=== PATIENT | female | born 1960 | race Caucasian/White ===

== ENCOUNTER → 2021-09-12 14:11 | Outpatient (CLI) | payer MEDICARE, OTHER, SELFPAY ==
--- NOTE | 2021-09-12 14:11 | MM_ITS ---
PROCEDURE INFORMATION: Exam: Bilateral Diagnostic Breast Tomosynthesis Exam date and time: 09/12/2021 2:11 PM Age: 61 years old Clinical indication: Patient complaining of a right breast lump TECHNIQUE: Imaging protocol: Bilateral Diagnostic tomosynthesis and 2D mammography including computer-aided detection (CAD) when performed. Unilateral or bilateral exam. COMPARISON: No relevant prior studies available. FINDINGS: MAMMOGRAPHY: The breast tissue is composed of scattered areas of fibroglandular density. A skin marker was placed over the palpable abnormality in the posterior right upper inner quadrant. The spot compression views demonstrate stromal structures and several rounded lucencies best seen on tomographic craniocaudal images measuring up to 1.6 cm, highly suggestive of benign fat necrosis. The spot compression views also included an ovoid mass in the posterior third of the right upper inner quadrant measuring 0.7 cm in greatest dimension, likely reflecting a benign lymph node. There is no stellate mass, suspicious architectural distortion or suspicious microcalcifications in either breast to suggest malignancy. No skin thickening or axillary adenopathy. IMPRESSION: Patient to return for right breast ultrasound for full evaluation of the patient's complaint of a palpable abnormality likely reflecting benign fat necrosis. Sonographic imaging of the posterior right upper inner quadrant is also recommended to further assess a probably benign 0.7 cm ovoid mass unrelated to the palpable abnormality. ASSESSMENT: BI-RADS Category 0: Incomplete- Need Additional Imaging Evaluation and/or Prior Mammograms for Comparison
--- NOTE | 2021-09-12 14:11 | US_ITS ---
PROCEDURE INFORMATION: Exam: US Right Breast, Complete Exam date and time: 09/12/2021 2:11 PM Age: 61 years old Clinical indication: Palpable abnormality in the right breast TECHNIQUE: Imaging protocol: Complete ultrasound of all four quadrants of the Right breast and the retroareolar regions, including ultrasound of the axilla when performed. COMPARISON: MG MM DIG MAMM BI DX W/CAD 09/12/2021 2:36 PM FINDINGS: Breast: Sonographic images of the right breast including the retroareolar region, all 4 quadrants and the axilla do not demonstrate any solid or cystic masses. No architectural distortion or acoustical shadowing. Cursors were placed over normal fibrofatty tissue structures in the 12 o'clock axis. No skin thickening or axillary adenopathy. IMPRESSION: Palpable abnormality in the right breast corresponds to predominantly lucent breast tissue on mammography, highly suggestive of benign posttraumatic fat necrosis. A precautionary six-month follow-up diagnostic right mammogram is recommended unless otherwise clinically indicated. ASSESSMENT: BI-RADS Category 3: Probably benign
== END ==
PROVIDERS: PCP Family Medicine; Visit Provider Family Medicine
DX: N64.9 Disorder of breast, unspecified (principal)
CPT/HCPCS: 76641; 77062; 77066; G0279

== ENCOUNTER 2024-04-23 09:59 | Outpatient (CLI) | payer MEDICARE, OTHER, SELFPAY ==
--- NOTE | 2024-04-23 09:59 | MM_ITS ---
PROCEDURE INFORMATION: Exam: MG Bilateral Screening 3D Mammography Exam date and time: 04/23/2024 9:43 AM Age: 63 years old Clinical indication: Screening examination; Additional info: Palpable fullness. Family history of breast carcinoma. TECHNIQUE: Imaging protocol: Bilateral Screening tomosynthesis and 2D mammography including computer-aided detection (CAD) when performed. COMPARISON: 1. MG MM DIG MAMM BI DX W/CAD 09/12/2021 2:36 PM 2. US BREAST RT COMPLETE 09/12/2021 3:11 PM FINDINGS: MAMMOGRAPHY: Breast composition: There are scattered areas of fibroglandular density. Mass: Questionable 0.5 cm mass with associated 4 cm grouping of calcifications in the right upper inner quadrant, posterior depth. This is best seen on CC frame 35, MLO frame 46 . No suspicious masses in the left breast. Architectural distortion: No suspicious distortion. Calcifications: There is a 4 cm grouping of calcifications in the right upper inner quadrant, posterior depth, with associated questionable subcentimeter mass, as discussed above. Asymmetric density: None. Skin thickening: None. Axillary adenopathy: None. IMPRESSION: 1. Recommend right breast spot compression XCCM/MLO views, spot magnification XCCM view/ML view, full field true lateral view and ultrasound for further evaluation of a questionable 0.5 cm mass with associated 4 cm grouping of calcifications in the posterior right upper inner quadrant. 2. No mammographic evidence of malignancy in the left breast. 3. Given the reported risk factors for this patient, a breast cancer risk assessment may prove useful for further evaluation. ASSESSMENT: BI-RADS Category 0: Incomplete- Need Additional Imaging Evaluation and/or Prior Mammograms for Comparison.
== END 2024-04-23 23:59 | disposition home or self-care (01) ==
LOC: RAD 09:59
PROVIDERS: PCP Family Medicine; Visit Provider Family Medicine
DX: Z12.31 Encounter for screening mammogram for malignant neoplasm of breast (principal)
CPT/HCPCS: 77063; 77067

== ENCOUNTER 2025-05-11 11:11 | Outpatient (CLI) | payer MEDICARE, OTHER, SELFPAY ==
--- OUTSIDE RECORDS SUMMARY | 2025-03-22 09:59 | XMS_ITS | Encounter Summary ---
Author Organization [place] [address] Care Team Providers Care Rn Visiting Name Role Phone Christianne Bean MD, Terrell Primary Care Provider + Adam Dolan MD Unavailable Jane Kelsey Unavailable [phone] Reason for Visit * Auth/Cert/Inpt Specialty Diagnoses / Procedures Referred By Sherine t Referred To Contact Diagnoses Invasive ductal carcinoma of breast, right (HCC) Invasive ductal carcinoma of breast, right (HCC) [C50.911] Procedures WY MASTECTOMY PARTIAL WY BX/EXC LYMPH NODE OPEN DEEP AXILLARY NODE Right breast mammogram guided segmentectomy, sentinel lymph node dissection Referral ID Status Reason Start Date Expiration Date Visits Re quested Visits Authorized [id number] 1 1 Encounter Details Date Type Department Care Team (Latest Contact Info) Description 03/22/2025 9:59 AM EDT - 03/22/2025 10:14 AM EDT Hospital Encounter [facility] [place] [address] Aguila Miranda MD [address] [place] [address] [address] [place] [address] Malignant neoplasm of right breast in female, estrogen receptor positive, unspecified site of breast (HCC) Discharge Disposition: Home or Self Care Social History Tobacco Use Types Packs/Day Years Used Date Smoking Tobacco: Every Day Cigarettes Smokeless Tobacco: Never Alcohol Use Standard Drinks/Week Comments No 0 (1 standard drink = 0.6 oz pur e alcohol) Comments No Sex and Gender Information Value Date Recorded Sex Assigned at Not on file Legal Sex Female 4:40 AM EDT Gender Identity Not on file Sexual Orientation Not on file documented as of this encounter Medications at Time of Discharge anastrozole (ARIMIDEX) 1 mg Oral TabletIndications :Invasive ductal carcinoma of breast, right (HCC) TAKE ONE (1) TABLET BY MOUTH DAILY. 90 Tablet 3 02/21/2025 aspirin 81 mg Oral Tablet, Chewable Take 81 mg by mouth daily. atorvastatin (LIPITOR) 40 mg Oral Tablet Take 40 mg by mouth daily. FLUoxetine (PROZAC) 20 mg Oral Capsule Take 20 mg by mouth daily. HUMULIN 70/30 U-100 KWIKPEN 100 unit/mL (70-30) SubQ Insulin Pen Inject 10 Units under the skin 2 times daily (with meals). 02/09/2025 metFORMIN (GLUCOPHAGE) 500 mg Oral Tablet Take 500 mg by mouth 2 times daily. 12/27/2024 amLODIPine (NORVASC) 2.5 mg Oral Tablet Take 10 mg by mouth. diazepam (VALIUM) 10 mg Oral Tablet Take 10 mg by mouth every 8 hours as needed. hydroCHLOROthiazi de 25 mg Oral Tablet Take 25 mg by mouth daily. 01/12/2025 ibuprofen (ADVIL;MOTRIN) 100 mg Oral Tablet Take 100 mg by mouth every 6 hours as needed for Fever. lisinopriL (PRINIVIL;ZESTRIL ) 40 mg Oral Tablet Take 40 mg by mouth daily. metoprolol succinate (TOPROL-XL) 25 mg Oral Tablet Sustained Release 24 hr Take by mouth once. oxyCODONE-acetami nophen (PERCOCET) 5-325 mg Oral Tablet Take 1-2 Tabs by mouth every 4 hours as needed for Pain. 40 Tab 0 11/23/2014 traMADoL (ULTRAM) 50 mg Oral Tablet Take 1 Tablet by mouth every 6 hours as needed for up to 10 days. 10 Tablet 03/22/2025 1:41 PM EDT 03/22/2025 04/01/2025 documented as of this encounter Discharge Disposition Disposition Code Departure Means Destination Home or Self Care documented in this encounter Plan of Treatment Upcoming Encounters Date Type Department Care Team (Late st Contact Info) Description 05/16/2025 11:00 AM EDT Appointment [facility] [place] [address] Michael Wallace MD [address] [facility] [place] [address] 10/27/2025 12:30 PM EST Appointment [facility] [place] [address] Aguila Miranda MD [address] [facility] [address] [place] [address] 10/27/2025 1:00 PM EST Appointment [facility] [address] [place] [address] Samnatha Paredes PA-C [address] [place] [address] [place] [address] documented as of this encounter Goals Goal Patient Goal Type Associated Problems Recent Progress Patient-Stated? Author [facility] Breast [facility] On track( 025 12:16 PM EDT) No Olivia Moya, RN Note: Patient acknowledges understanding of new diagnosis, plan of care, available resources and how to contact Nurse Navigator with any future questions or concerns. Breast [facility] Breast Health On track( 025 11:12 AM EDT) No Dianna Issa, RN Note: Patient will be compliant with taking Aromatase Inhibitor daily and understands who to contact to discuss any side effects or complications. documented as of this encounter Procedures Procedure Name Priority Date/Time Associated Diagnosis Comments MM US BREAST NEEDLE LOCALIZATION RIGHT Routine 03/22/2025 11:34 AM EDT Malignant neoplasm of right breast in female, estrogen receptor positive, unspecified site of breast (HCC) documented in this encounter Results * MM US BREAST NEEDLE LOCALIZATION RIGHT (03/22/2025 11:34 AM EDT) Anatomical Region Laterality Modality Breast Right Mammography 03/22/2025 11:3 4 AM EDT Impressions 03/22/2025 12:01 PM EDT RECOMMENDATION: . . DISCLAIMER *The patient was notified by MyChart or mail of the results for this examination. *The patient's information was entered into a reminder system with a target due date for the next breast imaging, in accordance with the [employer] and the Society of Breast Imaging recommendations. *Breast Imaging has a false negative rate of 15%. *Any patient with a palpable abnormality, unexplained by breast imaging, should be managed on a clinical basis by the attending physician. Narrative 03/22/2025 12:01 PM EDT Does EXAM: MM US BREAST NEEDLE LOCALIZATION RIGHT EXAM DATE: 03/22/2025 11:34 AM COMPARISON STUDIES: Compared with prior studies the most recent being breast MRI from November,. DESCRIPTION: INDICATION- C50.911-Malignant neoplasm of unspecified site of right female breast (HCC)-ICD-10-CM Z17.0-Estrogen receptor positive status (ER+)-ICD-10-CM 64-year-old female who was diagnosed with an invasive ductal malignancy in the upper inner quadrant right breast with regional calcifications. Preoperative needle localization requested. Prior to the localization mammography was performed which demonstrates 4.5 cm of indeterminate calcifications with the biopsy clip centrally. Initially an attempt was made to bracket the calcifications by mammography, however because of the location in the upper inner right breast this was unsuccessful. The patient was then taken to the ultrasound suite and under ultrasound guidance a 7.5 cm needle was advanced into the breast traversing the clip and deployed without complication. On the final image the clip lies between the needle tip and wire. Calcifications are noted to extend both anterior and posterior to the needle shaft. Specimen radiography is recommended. PATHOLOGY RESULT: Results pending Procedure Note Mary Jo Busby MD - 03/22/2025 Does EXAM: MM US BREAST NEEDLE LOCALIZATION RIGHT EXAM DATE: 03/22/2025 11:34 AM COMPARISON STUDIES: Compared with prior studies the most recent beingbreast MRI from November,. DESCRIPTION: INDICATION- C50.911-Malignant neoplasm of unspecified site of rightfemale breast (HCC)-ICD-10-CM Z17.0-Estrogen receptor positive status (ER+)-ICD-10-CM 64-year-old female who was diagnosed with an invasive ductal malignancy inthe upper inner quadrant right breast with regional calcifications.Preoperative needle localization requested. Prior to the localization mammography was performed which demonstrates 4.5 cm of indeterminate calcifications withthe biopsy clip centrally. Initially an attempt was made to bracket the calcifications by mammography, however because of the location in theupper inner right breast this was unsuccessful. The patient was then taken to the ultrasound suite and under ultrasoundguidance a 7.5 cm needle was advanced into the breast traversing the clip anddeployed without complication. On the final image the clip lies between the needletip and wire. Calcifications are noted to extend both anterior and posteriorto the needle shaft. Specimen radiography is recommended. PATHOLOGY RESULT: Results pending IMPRESSION: RECOMMENDATION: . . DISCLAIMER *The patient was notified by MyChart or mail of the results for this examination. *The patient's information was entered into a reminder system with atarget due date for the next breast imaging, in accordance with the [employer] and the Society of Breast Imaging recommendations. *Breast Imaging has a false negative rate of 15%. *Any patient with a palpable abnormality, unexplained by breast imaging,should be managed on a clinical basis by the attending physician. us Aguila Miranda MD IM MAMMOGRAPHY ORDERABLES Final Result documented in this encounter Visit Diagnoses Diagnosis Malignant neoplasm of right breast in female, estrogen receptor positive, unspecified site of breast (HCC) documented in this encounter Care Teams Rn Visiting Relationship Specialty Start Date End Date Terrell Faust MD [address] [place] [id number] PCP - General Family Medicine 05/23/14 Adam Dolan MD [address] [place], [place] [id number] Physician Internal Medicine-Cardiovascular Disease 11/18/14 Jane Kelsey MSW Battery Hand 06/03/24 documented as of this encounter
--- OUTSIDE RECORDS SUMMARY | 2025-03-22 10:15 | XMS_ITS | Encounter Summary ---
Author Organization [place] [address] Care Team Providers Care Blackjack Dealer Name Role Phone Christianne Bean MD, Terrell Primary Care Provider + Adam Dolan MD Unavailable [phone] Jane Kelsey Unavailable [phone] Reason for Referral * Mammography (Routine) - Pending Review Specialty Diagnoses / Procedures Referred By Contac t Referred To Contact Radiology Diagnoses Malignant neoplasm of right breast in female, estrogen receptor positive, unspecified site of breast (HCC) Procedures MM POST PROCEDURE FILM DIGITAL RIGHT Aguila Miranda MD [address] [place] [address] Phone: tel: fax: Referral ID Status Reason Start Date Expiration Date V isits Requested Visits Authorized [id number] Pending Review 03/22/2025 03/22/2027 1 1 Reason for Visit * Auth/Cert/Inpt Specialty Diagnoses / Procedures Referred By Contac t Referred To Contact Diagnoses Invasive ductal carcinoma of breast, right (HCC) Invasive ductal carcinoma of breast, right (HCC) [C50.911] Procedures PA MASTECTOMY PARTIAL PA BX/EXC LYMPH NODE OPEN DEEP AXILLARY NODE Right breast mammogram guided segmentectomy, sentinel lymph node dissection Referral ID Status Reason Start Date Expiration Date Visits Re quested Visits Authorized [id number] 1 1 Encounter Details Date Type Department Care Team (Latest Contact Info) Description 03/22/2025 10:15 AM EDT - 03/22/2025 11:32 AM EDT Hospital Encounter [facility] [place] [address] Aguila Miranda MD [address] [place] [address] Malignant neoplasm of right breast in female, [...] EDT Appointment [facility] [place] [address] Michael Wallace MD [address] [place] [address] [place] [address] 10/27/2025 12:30 PM EST Appointment [facility] [address] [place] [address] Aguila Miranda MD [address] [place] [address] [place] [address] 10/27/2025 1:00 PM EST Appointment [facility] [place] [address] Samantha Paredes PA-C [address] [place] [address] [place] [address] documented as of this encounter Goals Goal Patient Goal Type Associated Problems Recent Progress Patient-Stated? Author Breast Health Breast Health On track( 025 12:16 PM EDT) No Olivia Moya RN Note: Patient acknowledges understanding of new diagnosis, plan of care, available resources and how to contact Nurse Navigator with any future questions or concerns. Breast Health Breast Health On track( 025 11:12 AM EDT) No Dianna Issa, NAM Note: Patient will be compliant with taking Aromatase Inhibitor daily and understands who to contact to discuss any side effects or complications. documented as of this encounter Procedures Procedure Name Priority Date/Time Associated Diagnosis Comments MM POST PROCEDURE FILM DIGITAL RIGHT Routine 03/22/2025 11:34 AM EDT Malignant neoplasm of right breast in female, estrogen receptor positive, unspecified site of breast (HCC) documented in this encounter Results * MM POST PROCEDURE FILM DIGITAL RIGHT (03/22/2025 11:34 AM EDT) Anatomical Region Laterality Modality Breast Right Mammography 03/22/2025 11:3 4 AM EDT Impressions 03/22/2025 12:27 PM EDT Post-Procedure Mammogram for Marker Placement RECOMMENDATION: No additional recommendation DISCLAIMER *The patient was notified by MyChart or mail of the results for this examination. *The patient's information was entered into a reminder system with a target due date for the next breast imaging, in accordance with the [employer] and the Society of Breast Imaging recommendations. *Breast Imaging has a false negative rate of 15%. *Any patient with a palpable abnormality, unexplained by breast imaging, should be managed on a clinical basis by the attending physician. Narrative 03/22/2025 12:27 PM EDT EXAM: MM POST PROCEDURE FILM DIGITAL RIGHT EXAM DATE: 03/22/2025 11:34 AM TISSUE DENSITY: There are scattered areas of fibroglandular density. FINDINGS: A single cc view obtained following needle placement demonstrates the clip lying between the needle tip and wire. Indeterminate calcifications can be seen extending anterior to the shaft by 12 mm and posterior to the needle shaft by 15 mm. Specimen radiography is recommended. Procedure Note Mary Jo Busby MD - 03/22/2025 EXAM: MM POST PROCEDURE FILM DIGITAL RIGHT EXAM DATE: 03/22/2025 11:34 AM TISSUE DENSITY: There are scattered areas of fibroglandular density. FINDINGS: A single cc view obtained following needle placementdemonstrates the clip lying between the needle tip and wire. Indeterminate calcificationscan be seen extending anterior to the shaft by 12 mm and posterior to the needleshaft by 15 mm. Specimen radiography is recommended. IMPRESSION: Post-Procedure Mammogram for Marker Placement RECOMMENDATION: No additional recommendation DISCLAIMER *The patient was notified by MyChart or mail of the results for this examination. *The patient's information was entered into a reminder system with atarget due date for the next breast imaging, in accordance with the [employer] and the Society of Breast Imaging recommendations. *Breast Imaging has a false negative rate of 15%. *Any patient with a palpable abnormality, unexplained by breast imaging,should be managed on a clinical basis by the attending physician. us Aguila Miranda MD IMG MAMMOGRAPHY ORDERABLES Final Result documented in this encounter Visit Diagnoses Diagnosis Malignant neoplasm of right breast in female, estrogen receptor positive, unspecified site of breast (HCC) documented in this encounter Care Teams Blackjack Dealer Relationship Specialty Start Date End Date Terrell Faust MD [address] [place] [phone] PCP - General Family Medicine 05/23/14 Adam Dolan MD [address] [place] [id number] Physician Internal Medicine-Cardiovascular Disease 11/18/14 Jane Kelsey MSW Houseperson 06/03/24 documented as of this encounter
--- OUTSIDE RECORDS SUMMARY | 2025-03-22 11:33 | XMS_ITS | Encounter Summary ---
Author [place] [address] Care Team Providers Care Special Education Classroom Aide Name Role Phone Christianne Bean MD, Terrell Primary Care Provider + Adam Dolan MD Unavailable [phone] Jane Kelsey Unavailable [phone] Reason for Visit * Auth/Cert/Inpt Specialty Diagnoses / Procedures Referred By Sherine t Referred To Contact Diagnoses Invasive ductal carcinoma of breast, right (HCC) Invasive ductal carcinoma of breast, right (HCC) [C50.911] Procedures ID MASTECTOMY PARTIAL ID BX/EXC LYMPH NODE OPEN DEEP AXILLARY NODE Right breast mammogram guided segmentectomy, sentinel lymph node dissection Referral ID Status Reason Start Date Expiration Date Visits Re quested Visits Authorized [id number] 1 1 Encounter Details Date Type Department Care Team (Latest Contact Info) Description 03/22/2025 11:33 AM EDT - 03/22/2025 4:25 PM EDT Hospital Encounter [facility] [place] [address] Aguila Miranda MD [address] [place] [address] [place] [address] Invasive ductal carcinoma of breast, right (HCC) Discharge Disposition: Home or Self Care [...] on file documented as of this encounter Last Filed Vital Signs Vital Sign Reading Time Taken Comments Blood Pressure 110/64 03/22/2025 4:17 PM EDT Pulse 76 03/22/2025 4:17 PM EDT Temperature 36.4 C (97.5 F) 03/22/2025 4:17 PM EDT Respiratory Rate 16 03/22/2025 4:17 PM EDT Oxygen Saturation 92% 03/22/2025 4:17 PM EDT Inhaled Oxygen Concentration - - Weight 79.8 kg (176 lb) 03/22/2025 11:58 AM EDT Height 170.2 cm (5' 7 ) 03/22/2025 11:58 AM EDT Body Mass Index 27.57 03/22/2025 11:58 AM EDT documented in this encounter Discharge Instructions * Discharge Instructions* Chip Morales RN - 03/22/2025 12:05 PM EDT Images from the original note were not included. Continuous Nerve Block: Patient Instructions You have had a nerve block to effectively manage your post-operative pain. To facilitate this process, a catheter has been placed close to your nerve so that pain medicine can be delivered on a continuous basis using a pain pump. General Instructions: Protect your blocked arm/leg. It is numb. Carefully pad your limb to prevent pressure sores and other injuries. Be careful with applying cold/warm to the blocked limb. Numbness will alter the sensation of the limb and could damage your skin if you cannot correctly feel the temperature. Do not drive or operate machinery while the catheter is in place and your extremity is numb. Do not pull or tug on the catheter. Keep the dressing at the catheter site clean and dry. Do not pinch the catheter or the tubing. A small amount of fluid leaking around the catheter is normal. For upper limb blocks: Make sure the entire arm, including the wrist, is supported. Do not let the wrist dangle over the sling. Keep the arm supported with a pillow when at rest. Keep your elbow padded and cushioned. For lower limb blocks: Do not use the leg to balance, walk or support yourself. Do not drag your foot or toes on the ground. When should I call for help? FOR ANY EMERGENCIES, CALL 911. For non-emergency questions about the catheter or the pump, call the [employer] hot-line number. Clamp off the catheter and call the anesthesiologist reconcilement clerk at [facility] ([phone], ext [phone]) immediately for any of these symptoms: Ringing in the ears Metallic taste in the mouth Numbness in the lips Seizures Dizziness Increased anxiety Call your surgeon if: Your fingers or toes in the blocked extremity are getting dusky. You have sudden loss of movement in your fingers/toes of the blocked extremity when you were able to move them earlier. You have pain not controlled by the block and/or your pain medicines. +++++++++++++++++++++++++++++++++++++++++++++++++++++++++++++++++++ [facility] Discharge Instructions - Following Anesthesia We appreciate the opportunity to care for you today! Here are a few reminders as you head home: A responsible adult, 18 years or older must be in attendance until tomorrow morning. Rest quietly today. May resume usual diet as tolerated or as directed by your surgeon. Do not drive or operate any machinery until tomorrow morning or as instructed. Do not make any legal or important decisions for the next 24 hours. Do not drink alcoholic beverages or take sleeping pills for 24 hours unless otherwise directed. If you received a nerve block for post-operative pain control, protect your blocked arm/leg. It maybe numb. Carefully pad your limb to prevent pressure sores and other injuries. Be careful with applying cold/warm to the blocked limb. Numbness will alter the sensation of the limb and could damage your skin if you cannot correctly feel the temperature. If you have questions or concerns regarding your anesthesia experience, please call our office at . Get Well Soon! [facility] +++++++++++++++++++++++++++++++++++++++++++++++++++++++++++++++++++ OPERATIVE SITE INSTRUCTIONS: If Skin glue is present please leave in place. It will dissolve over time. Remove your dressing in 48-72 hours. Leave steri-strips in place; they will fall off within 7-10 days. Change the dressing as needed. If you have a paper tape dressing under the arm, remove in 1-2 days Do not apply lotions or creams to the surgical site. May apply ice for 20 minute intervals to the surgical site, for comfort and to prevent swelling. If there is a ROQUE drain present, empty and record the drainage two times a day. If drainage is less than 25 ml in a 24 hour time frame, notify Dr. Miranda. Milk the ROQUE if it???s not draining. MEDICATION INSTRUCTIONS: Please take your prescribed pain medication as ordered. Please do not take additional tylenol products while taking either Percocet or Vicodin. You may take over the counter Ibuprofen (if you are not taking other arthritis medications, have a diagnosis of peptic ulcer disease or taking anticoagulants Coumadin, plavix, aspirin). May Resume Coumadin or Plavix 24 hours after the procedure. DIET INSTRUCTIONS: Drink liquids first, if no nausea in 1 hour you may advance as tolerated. ACTIVITY INSTRUCTIONS: Okay to walk up stairs Okay to shower after 24 hours. If there is a paper tape dressing present may remove prior to showering only replace the dressing if there is drainage. You may shower if there is a ROQUE drain in place change dressing after shower. Pat incision(s) dry after showering. FOLLOW-UP CARE: For a follow up appointment and your results call the [facility] at [phone], 3 days post procedure for an appointment within 7-10 days from your surgery. If you are not a patient of [facility], call [phone]. Notify Dr. Miranda at [phone] for problems such as : Check your temperature for 5 days call for Fever over 101 degrees Unrelieved nausea or pain Inability to urinate Rash, hives or difficulty breathing Blood soaked dressing (Some oozing may be normal) Numb, pale, blue, cold or tingling extremity Go to the Emergency Room, if your doctor is not available last dose of tylenol was at 1148 and last oxycodone was at 2:00pm documented in this encounter Medications at Time of Discharge [...] 03/22/2025 04/01/2025 documented as of this encounter Ordered Prescriptions Prescription Sig Dispense Quantity Refills Last Filled Start Date End Date traMADoL (ULTRAM) 50 mg Oral Tablet Take 1 Tablet by mouth every 6 hours as needed for up to 10 days. 10 Tablet 03/22/2025 1:41 PM EDT 03/22/2025 04/01/2025 documented in this encounter Discharge Disposition Disposition Code Departure Means Destination Comment s Home or Self Care Car Home documented in this encounter Progress Notes * Donny Neal CPhT - 03/22/2025 2:36 PM EDT Discharge Medication Delivery Service DMD optical engineering technician has delivered the following medications for Lindsey Dougherty: Rx#[id number]:TRAMADOL 50 MG TABLET-50 mg EVERY 6 HOURS PRN Date/Time of Delivery: 03/22/2025 2:36 PM Delivered to: placed on bedside table in PACU21, Ra(NAM) present and aware Please contact [employer] optical engineering technician with any questions. Thanks! Donny Neal CPhT documented in this encounter H&P Notes * Dimitris Bowser APRN - 03/22/2025 11:30 AM EDT [facility] History and Physical Name: Lindsey Dougherty ADDRESS: [address] [place] [address] : 1960 AGE: 64 y.o. ASSESSMENT: Invasive ductal carcinoma of breast, right (HCC) [C50.911] Medications: Amlodipine-last dose 03/22/2025 ASA-last dose 03/19/2025 Ibuprofen-Not taking Lisinopril-last dose 03/21/2025 Toprol XL-Not taking PLAN: Procedure(s): Right breast mammogram guided segmentectomy, sentinel lymph node dissection per Aguila Miranda MD Admitting Physician: Aguila Miranda MD Date of Admit: 03/22/2025 SUBJECTIVE: Chief Complaint: Invasive ductal carcinoma of breast, right (HCC) [C50.911] History of Present Illness: Patient is a 64 y.o. female with Invasive ductal carcinoma of breast, right (HCC) [C50.911] who presents for surgical intervention. Past Medical History: Diagnosis Date Anemia Cancer (HCC) breast rt Depression Heart murmur Hyperlipidemia Hypertension Postoperative nausea and vomiting Stroke (HCC) 2017 Past Surgical History: Procedure Laterality Date BREAST BIOPSY Right 05/17/2024 1:00 UIQ posterior with T3 placement FRACTURE SURGERY upper left arm HAND SURGERY HERNIA REPAIR N/A 11/23/2014 LAPAROSCOPIC ASSISTED UMBILICAL HERNIA REPAIR WITH MESH.; Surgeon: Vinicius Read MD; Location: [facility]; Service: General HYSTERECTOMY partial MM US BREAST BIOPSY RIGHT Right 05/17/2024 MM US BREAST BIOPSY RIGHT 05/17/2024 Mary Jo Busby MD [facility] US GUIDED NEEDLE PLACEMENT Right 03/22/2025 12:00-1:00 o'clock Prior to Admission medications Medication Sig Start Date End Date Last Dose Authorizing Provider amLODIPine (NORVASC) 2.5 mg Oral Tablet Take 10 mg by mouth. 03/22/2025 at 8:00 AM Provider, Historical anastrozole (ARIMIDEX) 1 mg Oral Tablet TAKE ONE (1) TABLET BY MOUTH DAILY. 02/21/25 03/21/2025 at 8:00 AM Aguila Miranda MD aspirin 81 mg Oral Tablet, Chewable Take 81 mg by mouth daily. 03/19/2025 Provider, Historical atorvastatin (LIPITOR) 40 mg Oral Tablet Take 40 mg by mouth daily. 03/21/2025 at 9:00 PM Provider, Historical FLUoxetine (PROZAC) 20 mg Oral Capsule Take 20 mg by mouth daily. 03/22/2025 at 8:00 AM Provider, Historical HUMULIN 70/30 U-100 KWIKPEN 100 unit/mL (70-30) SubQ Insulin Pen Inject 10 Units under the skin 2 times daily (with meals). 02/09/25 03/21/2025 at 7:00 PM Provider, Historical hydroCHLOROthiazide 25 mg Oral Tablet Take 25 mg by mouth daily. 01/12/25 03/21/2025 at 8:00 AM Provider, Historical lisinopriL (PRINIVIL;ZESTRIL) 40 mg Oral Tablet Take 40 mg by mouth daily. 03/21/2025 at 8:00 AM Provider, Historical metFORMIN (GLUCOPHAGE) 500 mg Oral Tablet Take 500 mg by mouth 2 times daily. 12/27/24 03/21/2025 at 6:00 PM Provider, Historical diazepam (VALIUM) 10 mg Oral Tablet Take 10 mg by mouth every 8 hours as needed. Patient not taking: Reported on 12/06/2024 Not Taking Provider, Historical ibuprofen (ADVIL;MOTRIN) 100 mg Oral Tablet Take 100 mg by mouth every 6 hours as needed for Fever.Unknown Provider, Historical metoprolol succinate (TOPROL-XL) 25 mg Oral Tablet Sustained Release 24 hr Take by mouth once. Patient not taking: Reported on 12/21/2024 Not Taking Provider, Historical oxyCODONE-acetaminophen (PERCOCET) 5-325 mg Oral Tablet Take 1-2 Tabs by mouth every 4 hours as needed for Pain. Patient not taking: Reported on 12/21/2024 11/23/14 Not Taking Vinicius Read MD Allergies Allergen Reactions Codeine Rash Penicillins Rash Predicort-50 [Prednisolone Acetate] Rash Social History Socioeconomic History Marital status: Spouse name: None Number of children: None Years of education: None Highest education level: None Tobacco Use Smoking status: Every Day Current packs/day: 1.00 Types: Cigarettes Smokeless tobacco: Never Vaping Use Vaping status: Former Substance and Sexual Activity Alcohol use: No Alcohol/week: 0.0 oz Drug use: No Family History Problem Relation Age of Onset Diabetes Mother Kidney Disease Mother Cancer Father Stroke Maternal Uncle Breast Cancer Paternal Aunt Heart Disease Maternal Grandmother Anesth Problems Neg Hx Active Hospital Problems Diagnosis *Invasive ductal carcinoma of breast, right (HCC) Review of Systems: The listed systems were reviewed and reveal the following in addition to any already discussed in the HPI: Review of Systems Constitutional: Negative for fever. HENT: Negative. Eyes: Negative. Respiratory: Negative. Negative for shortness of breath. Cardiovascular: Negative. Negative for chest pain and leg swelling. Gastrointestinal: Negative. Genitourinary: Negative. Musculoskeletal: Negative. Skin: Negative. Neurological: Negative. Endo/Heme/Allergies: Negative. Psychiatric/Behavioral: Negative. OBJECTIVE: Blood pressure 142/76, pulse 78, temperature 97 ??F (36.1 ??C), resp. rate 20, height 5' 7 (1.702 m), weight 176 lb (79.8 kg), SpO2 98%, not currently . Physical Exam Constitutional: Appearance: Normal appearance. HENT: Head: Normocephalic. Nose: Nose normal. Mouth/Throat: Mouth: Mucous membranes are moist. Eyes: Extraocular Movements: Extraocular movements intact. Cardiovascular: Rate and Rhythm: Normal rate and regular rhythm. Heart sounds: Murmur (2/6 RAVEN mid Peaking) heard. Comments: S1S2 Pulmonary: Effort: Pulmonary effort is normal. Abdominal: Palpations: Abdomen is soft. Genitourinary: Comments: Exam deferred Musculoskeletal: General: Normal range of motion. Cervical back: Normal range of motion. Skin: General: Skin is warm and dry. Neurological: General: No focal deficit present. Mental Status: She is alert. Psychiatric: Mood and Affect: Mood normal. Labs: Lab Results Component Value Date WBC 9.0 12/22/2024 HGB 14.0 12/22/2024 HCT 41.8 12/22/2024 MCV 91.5 12/22/2024 PLT 284 12/22/2024 Lab Results Component Value Date CREATININE 0.85 12/22/2024 BUN 19 12/22/2024 NA 132 (L) 12/22/2024 K 4.5 12/22/2024 CL 94 (L) 12/22/2024 CO2 26 12/22/2024 GFRCKDEPI 76 12/22/2024 03/22/2025 FSBS 139 mg/dL Radiology: EK12/22/2024 SINUS RHYTHM WITH FIRST DEGREE AV BLOCK POSSIBLE LEFT ATRIAL ENLARGEMENT POSSIBLE ANTERIOR MYOCARDIAL INFARCTION, OF INDETERMINATE AGE PCP Clearance obtained Dimitris Bowser APRN 03/22/2025 Cosigned by Kyaw Mulligan MD at 03/23/2025 6:09 AM EDT documented in this encounter Procedure Notes * Aguila Miranda MD - 03/22/2025 1:11 PM EDT [place] Node Biopsy for Breast Cancer - Right Operation performed with curative intent No Tracer(s) used to identify sentinel nodes in the upfront surgery (non- neoadjuvant) setting N/a Tracer(s) used to identify sentinel nodes in the neoadjuvant setting Dye All nodes (colored or non-colored) present at the end of a dye-filled lymphatic channel were removed Yes All significantly radioactive nodes were removed N/A All palpably suspicious nodes were removed Yes Biopsy-proven positive nodes marked with clips prior to chemotherapy were identified and removed N/A DATE OF OPERATION: 03/22/2025 PREOPERATIVE DIAGNOSIS: Right breast cancer. POSTOPERATIVE DIAGNOSIS: Right breast cancer. PROCEDURES: Right mammogram-guided segmentectomy and right axillary sentinel lymph node biopsy. SURGEON: Aguila Miranda MD WET POUR SUPERVISOR: None. ANESTHESIA: General. INDICATIONS: Ms. Dougherty is a 64-year-old woman with a history of a right breast cancer, then underwentneoadjuvant endocrine therapy with an impressive response. A preoperative MRI done 2 months ago demonstrated complete resolution of the measurable disease. I recommended a segmental excision and sentinel node biopsy. The risks, benefits and alternatives were explained to her and she understood and wished to proceed. PROCEDURE DETAILS: After informed consent had been obtained, the patient was taken to the operatingroom where Ancef was administered, compression boots were applied, and she was placed, prepped and draped in the usual sterile fashion. Lymphazurin, 5 mL, was injected in a peritumoral fashion. Five minutes compression was performed and a curvilinear incision was made beneath the hair- bearing portion of the axilla. Subcutaneous tissue was divided with cautery. The clavipectoral fascia was opened. A blue-stained lymph node cluster was identified and traced from lateral to medial into the tail of the breast to assure its primacy and singularity. The channel was ligated and node was sent for permanent section. No other blue-stained tissue was present. The wound was closed with 3-0 and 4-0 Vicryl, and sealed with skin glue. The point of maximum impulse of localization wire was incorporated into a skin incision and opened sharply. Flaps were elevated in all directions. The wire was identified and transected. The specimenwas elevated with clamps, sharply excised from the surrounding normal tissue, marked and sent for amammogram, which contained the calcium throughout the specimen. The wound was carefully dried. Hemostasis was completed. The perimeter was marked with Hemoclips and the breast was closed with 3-0 and 4-0 Vicryl, and sealed with skin glue. Local anesthetic was infiltrated. All needle, sponge and instrument counts were correct. The patient tolerated the procedurewell and was taken to recovery area awake and alert. Reviewed in full by nilesh/NEIDA, 03/22/2025 Aguila Miranda M.D. By: Daniel Job ID: [id number] Doc ID: [id number] * Aguila Miranda MD - 03/22/2025 12:50 PM EDT [facility] 2 OPERATIVE/PROCEDURE NOTE Lindsey Dougherty I March 22, 2025 Body mass index is 27.57 kg/m??. PRE-OP DIAGNOSIS: Invasive ductal carcinoma of breast, right (HCC) [C50.911] POST-OP DIAGNOSIS: Invasive ductal carcinoma of breast, right (HCC) [C50.911] PROCEDURE(S): Procedure(s): Right breast mammogram guided segmentectomy, sentinel lymph node dissection SURGEON(S): Surgeons and Role: * Aguila Miranda MD - Primary WET POUR SUPERVISOR(S): ANESTHESIA: General SPECIMENS: ID Type Source Tests Collected by Time Destination 1 : BLUE NODE RIGHT AXILLA Tissue Axilla, Right PATHOLOGY TISSUE REQUEST Aguila Miranda MD 03/22/2025 1235 2 : RIGHT BREAST SEGMENT Tissue Breast, Right PATHOLOGY TISSUE REQUEST Aguila Miranad MD 03/22/2025 1243 ESTIMATED BLOOD LOSS (mls): 2ml *EBL MUST be documented as a numeric value FINDINGS: image + OTHER INFO: DISPOSITION/POST PROC COURSE: pacu Aguila Miranda MD Date: 03/22/2025 documented in this encounter Nursing Notes * Earline Escobedo RN - 03/22/2025 1:00 PM EDT Right breast segment taken to pathology (fresh) by AVINASH HIGHTOWER RN * Matilda Worrell RN - 03/09/2025 3:23 PM EDT Images from the original note were not included. PREPARING FOR YOUR SURGERY Date of Surgery: 03/22/25 Arrival time: Your surgeon may have already provided this, check your paperwork from the office. Ifnot received, call your surgeon's office. Location: [place] Medications on the Day of Surgery Take the following medications on the morning of surgery: amlodipine, prozac Medications to hold prior to surgery; Verify with your doctor for possibly discontinuing the following medications: blood thinners, aspirin, or anti-inflammatories. Stop taking all supplements 7 days prior to your surgery. Do not take any VERNA inhibitors (ends in PRIL ) or angiotensin receptor blockers (ends in SARTAN )on the day of surgery [facility] DIABETIC INSTRUCTIONS-ORAL MEDS: Day before Surgery:Take all diabetic meds as usual unless your doctor gives you other instructions., Do not take any oral DIABETIC medications the morning of surgery., and We will check your blood sugar when you get to the hospital and throughout the day. [facility] DIABETIC INSTRUCTIONS- MIXED INSULIN: Morning of Surgery: Follow your diabetes doctor's instructions about taking insulin the morning of surgery. If you don't have instructions, follow these instructions: and If you take Mixed Insulin (70/30 or 75/25): If blood glucose is greater than 200, morning of surgery, take half of the prescribed dose. If blood glucose is less than 200, morning of surgery, do not take any insulin. Food, Drinks, Tobacco Do not eat any food after midnight. This includes gum, mints, candy, chewing tobacco, and dip. Unless otherwise instructed by your surgeon, you may consume water, Gatorade, Powerade, black coffee/tea(no milk, no cream/creamers, no sugar) up to two hours prior to your scheduled arrival time. No exceptions or substitutions to these restrictions. Do not smoke, vape, or use any type of tobacco or marijuana products within 24 hours prior to surgery. Smoking will also slow your rate of healing. It is advised that you do not smoke during the healing process. No alcohol 24 hours prior to surgery. Head Golf Professional It is important to have a Head Golf Professional, someone who is 18 years or older, to accompany you and remain in the facility for the duration of your surgery. This person should be available for the Perioperative Team, which includes your surgeon, to communicate with before, during and after your surgery. Because you are receiving anesthesia, someone is needed to drive you home and remain with you for at least 24 hours after surgery to make sure you are safe during that time We also recommend that no children be present on the day of surgery. If you have a concern, please reach out to our department [phone]. Hygiene [place] your teeth and gargle the morning of surgery. Shower the morning of surgery or the night before. Do not wear makeup (including eye makeup) lotion, powder, deodorant, perfume, or cologne. Do not shave the operative extremity or near the operative area. Remove nail [place] prior to surgery. This includes artificial nails and gel nail [place]. Personal Items Wear clean, simple, loose-fitting clothing (no jeans) and sturdy shoes (no flip flops, slides or crocs) to the hospital. Do not bring unnecessary valuables with you. It is policy that [facility] does not assume responsibility for lost, stolen or broken personal items that are brought in. Exceptions may be consideredfor items which are considered necessary for your healthcare. These items will be formally documented. Remove all jewelry prior to surgery to prevent injury. We will not tape wedding rings/bands Glasses and contacts will need to be removed prior to surgery. Please bring a case for them.. If you have hearing aids, please wear them to the hospital and bring a case. Bring with You Bring a copy of your Living Will and/or Durable Power of [employer] [facility]. Notify the Surgeon Notify your surgeon if you develop any illness (fever, cold, cough, sore throat, nausea, vomiting, skin rashes etc.) between now and surgery time Notify your surgeon and Pre-admission testing ([phone]) if you have any changes in your healthconditions or if any new medications are ordered between now and surgery.. Questions or Concerns? If you have any questions or concerns, feel free to call the Pre-Admission testing department at [phone]. We want to make sure you feel safe and have an excellent experience while you are here. Do not reply to this message through [employer] as it may not be answered promptly. Same Day [facility] - [place] at [phone]; [place] [facility]: Patient Entrance 3A, stop at check-in desk. [address] [place] [phone]. Please do not reply to this message. Please call Pre-admission testing [phone] with questions. DOORS OPEN AT 5:00 AM FRI-FRI AND 6:00 DANE FRIDAY AND 6:30 AM ON FRIDAY Surgical Site Infections FAQs What is a Surgical Site Infection (SSI)? A surgical site infection is an infection that occurs after surgery in the part of the body where the surgery took place. Most patients who have surgery do not develop an infection. However, infections develop in about 1 to 3 out of every 100 patients who have surgery. Some of the common symptoms of a surgical site infection are: Redness and pain around the area where you had surgery Drainage of cloudy fluid from your surgical wound. Fever Can SSIs be treated? Yes. Most surgical site infections can be treated with antibiotics. The antibiotic given to you depends on the bacteria (germs) causing the infection. Sometimes patients with SSIs also need another surgery to treat the infection. What are some of the things that hospitals are doing to prevent SSIs? To prevent SSIs, doctors, nurses, and other healthcare providers: Clean their hands and arms up to their elbows with an antiseptic agent just before the surgery. Clean their hands with soap and water or an alcohol-based hand rub before and after caring for eachpatient. May remove some of your hair immediately before your surgery using electric clippers if the hair isin the same area where the procedure will occur. They should not shave you with a razor. Wear special hair covers, masks, gowns, and gloves during surgery to keep the surgery area clean. Give you antibiotics before your surgery starts. In most cases, you should get antibiotics within 60 minutes before the surgery starts and the antibiotics should be stopped within 24 hours after surgery. Clean the skin at the site of your surgery with a special soap that kills germs. What can I do to help prevent SSIs? Before your surgery: Tell your doctor about other medical problems you may have. Health problems such as allergies, diabetes, and obesity could affect your surgery and your treatment. Quit smoking. Patients who smoke get more infections. Talk to your doctor about how you can quit before your surgery. Do not shave near where you will have surgery. Shaving with a razor can irritate your skin and makeit easier to develop an infection. At the time of your surgery: Speak up if someone tries to shave you with a razor before surgery. Ask why you need to be shaved and talk with your surgeon if you have any concerns. Ask if you will get antibiotics before surgery. After your surgery: Make sure that your healthcare providers clean their hands before examining you, either with soap and water or an alcohol-based hand rub. If you do not see your providers clean their hands, please ask them to do so. Family and friends who visit you should not touch the surgical wound or dressings. Family and friends should clean their hands with soap and water or an alcohol- based hand rub beforeand after visiting you. If you do not see them clean their hands, ask them to clean their hands. What do I need to do when I go home from the hospital? Before you go home, your doctor or nurse should explain everything you need to know about taking care of your wound. Make sure you understand how to care for your wound before you leave the hospital. Always clean your hands before and after caring for your wound. Before you go home, make sure you know who to contact if you have questions or problems after you get home. If you have any symptoms of an infection, such as redness and pain at the surgery site, drainage, or fever, call your doctor immediately. If you have additional questions, please ask your doctor or nurse. Developed and co-sponsored by The Society for Healthcare Epidemiology of [place] (GUALLPA); InfectiousDiseases Society of [place] (IDSA); [employer] [facility] [employer]; Association for Professionals inInfection Control and Epidemiology (APIC); Centers for Disease Control and Prevention (CDC); and The Joint Commission. This information is not intended to replace advice given to you by your health care provider. Make sure you discuss any questions you have with your health care provider. , ANESTHESIA - COMMON SIDE EFFECTS (if present, these should resolve within 24 hours) TIREDNESS SHIVERING DIZZINESS DRY MOUTH MILD NAUSEA/VOMITING SORE THROAT OR HOARSENESS MILD PAIN OR DISCOMFORT IS NORMAL CALL THE SURGEON DAY OR NIGHT You have nausea or vomiting that doesn???t go away by the next morning. You experience severe pain not relieved by suggested medications. Thank you for letting us care for you. documented in this encounter Plan of Treatment Upcoming Encounters Date Type Department Care Team (Late st Contact Info) Description 05/16/2025 11:00 AM EDT Appointment [facility] [place] [address] Michael Wallace MD [address] [place] [address] [place] [address] 10/27/2025 12:30 PM EST Appointment [facility] Dr. Bond [facility] [id number] Aguila Miranda MD [address] [place] [address] [address] [place] [address] 10/27/2025 1:00 PM EST Appointment [facility] [place] [id number] Samantha Paredes PA-C [address] [place] [address] [address] [place] [address] documented as of this encounter Goals Goal Patient Goal Type Associated Problems Recent Progress Patient-Stated? Author Breast Health Breast Health On track( 025 12:16 PM EDT) No Olivia Moya, NAM Note: Patient acknowledges understanding of new diagnosis, [...] Procedure Name Priority Date/Time Associated Diagnosis Comments SCANNED RHYTHM STRIPS 03/23/2025 2:28 PM EDT MM [facility] TRIDENT SPECIMEN IMAGING Routine 03/22/2025 2:02 PM EDT PATHOLOGY TISSUE REQUEST Routine 03/22/2025 12:35 PM EDT Invasive ductal carcinoma of breast, right (HCC) ID BX/EXC LYMPH NODE OPEN DEEP AXILLARY NODE 03/22/2025 12:13 PM EDT Invasive ductal carcinoma of breast, right (HCC) Special Needs needle loc 03/22/25 @ 10:30am [facility] ID MASTECTOMY PARTIAL 03/22/2025 12:13 PM EDT Invasive ductal carcinoma of breast, right (HCC) Special Needs needle loc 03/22/25 @ 10:30am [facility] GLUCOSE METER POC Routine 03/22/2025 11: 40 AM EDT documented in this encounter Results * SCANNED RHYTHM STRIPS (03/23/2025 2:28 PM EDT) Anatomical Region Laterality Modality Other 03/23/2025 2:28 PM EDT us Unknown Provider IMG ECG ORDERABLES Final Result * MM [facility] TRIDENT SPECIMEN IMAGING (03/22/2025 2:02 PM EDT) Anatomical Region Laterality Modality Breast N/A Mammography 03/22/2025 2:02 PM EDT Impressions 03/22/2025 2:42 PM EDT Waiting for Pathology DISCLAIMER *The patient was notified by MyChart or mail of the results for this examination. *The patient's information was entered into a reminder system with a target due date for the next breast imaging, in accordance with the [employer] and the Society of Breast Imaging recommendations. *Breast Imaging has a false negative rate of 15%. *Any patient with a palpable abnormality, unexplained by breast imaging, should be managed on a clinical basis by the attending physician. Narrative 03/22/2025 2:42 PM EDT EXAM: MM [facility] TRIDENT SPECIMEN IMAGING EXAM DATE: 03/22/2025 2:02 PM FINDINGS: Intraoperative specimen contains a portion of the localizing needle and wire apparatus. The biopsy clip is not identified. There are surrounding calcifications. The OR was notified that the clip was not included within the specimen. Procedure Note Mary Jo Busby MD - 03/22/2025 EXAM: MM [facility] TRIDENT SPECIMEN IMAGING EXAM DATE: 03/22/2025 2:02 PM FINDINGS: Intraoperative specimen contains a portion of the localizingneedle and wire apparatus. The biopsy clip is not identified. There aresurrounding calcifications. The OR was notified that the clip was not included withinthe specimen. IMPRESSION: Waiting for Pathology DISCLAIMER *The patient was notified by MyChart or mail of the results for this examination. *The patient's information was entered into a reminder system with atarget due date for the next breast imaging, in accordance with the [employer] and the Society of Breast Imaging recommendations. *Breast Imaging has a false negative rate of 15%. *Any patient with a palpable abnormality, unexplained by breast imaging,should be managed on a clinical basis by the attending physician. Aguila Miranda MD [facility] ORDERABLES Final Result * PATHOLOGY TISSUE REQUEST (03/22/2025 12:35 PM EDT) CASE REPORT Surgical Pathology Case: [id number] Authorizing Provider: Aguila Miranda MD Collected: 03/22/2025 1235 Ordering Location: [facility] Received: 03/22/2025 1605 Pathologist: Poornima Hernandez MD Specimens: A) - Axilla, Right, BLUE NODE RIGHT AXILLA B) - Breast, Right, RIGHT BREAST SEGMENT 04/01/2025 9:33 PM EDT [facility] FINAL DIAGNOSIS A. SENTINEL LYMPH NODE, RIGHT AXILLA, BLUE NODE, EXCISIONAL BIOPSY: - Eight lymph nodes, negative for metastatic carcinoma (0/8). - Negative for fibrosis suggestive of tumor regression. B. 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 - Invasive carcinoma is present as innumerable small clusters of tumor cells, most within extracellular mucin pools, ranging from less than 0.1 mm to 3 mm in greatest contiguous extent. - The foci of invasive carcinoma spans an area of 60 mm, though with overall low cellularity. - Fibroelastosis and hemosiderin deposition, consistent with tumor regression. - Ductal carcinoma in situ (DCIS), grade 2, cribriform and flat types. - DCIS spans at least 24 mm in greatest dimension, involving extremely rare duct spaces. - Margins are negative for invasive carcinoma but are very close. - Posterior and superior margins: less than 0.1 mm. - Medial margin: 0.1 mm. - Lateral margin: 0.2 mm. - Anterior margin: 0.5 mm. - Inferior margin: 1.5 mm. - Margins are negative for DCIS. - Superior margin: 0.5 mm. - Anterior margin: 2 mm. - Medial margin: 2.5 mm. - All other margins: greater than 5 mm. - Negative for lymphovascular invasion. - Fibroadenomatoid changes. - Fibrocystic changes, columnar cell changes and ductal epithelial hyperplasia. - Calcifications identified, associated with DCIS, acellular mucin and nonneoplastic tissue. - Biopsy site changes. - See comment. 04/01/2025 9:33 PM EDT [facility] at 2132 EDT COMMENT Part B: The history of neoadjuvant endocrine therapy is noted. The entire specimen is submitted due to the subtle nature of the residual tumor. The residual carcinoma is present as widely dispersed tiny clusters of bland carcinoma cells, present predominantly in extracellular mucin pools, though some foci show typical stromal invasion. Few foci measure 2 mm to 3 mm, but the vast majority of the residual tumor measure less than 1 mm in greatest contiguous extent. These minute foci of residual carcinoma span the entirety of the specimen and closely approach several margins. The overall tumor cellularity is low, approximately 1%, secondary to treatment. Given the size of the foci and low cellularity, the percentage of carcinoma within extracellular mucin pools is difficult to determine; however it is felt to be less than 90% of the total tumor, and thus it will be designated invasive ductal carcinoma with mucinous features. Fibrosis consistent with tumor regression is also scattered throughout the specimen, without showing a well-defined tumor bed. Foci of tumor regression and acellular mucin are present at the lateral margin. These findings are consistent with incomplete response to neoadjuvant endocrine treatment. A breast prognostic marker panel was performed on the previous biopsy specimen ([id number]) and is incorporated in the synoptic report. If of clinical interest, a breast prognostic marker panel can be repeated on the current specimen. 04/01/2025 9:33 PM EDT [facility] GROSS DESCRIPTION A. Received in formalin in a container labeled with the patient's name, hospital number, and blue node right axilla , is a 6.5 x 4.2 x 3.0 cm aggregate of leach-yellow lobulated adipose tissue. Sectioning reveals 9 leach-pink potential lymph nodes, 0.3 x 0.2 x 0.1 cm-3.0 x 1.7 x 1.2 cm. The lymph nodes are sectioned at 0.2 cm intervals to reveal leach to fatty replaced cut surfaces. No areas of blue surgical dye are grossly appreciated. The lymph nodes are entirely submitted as follows: A1: 4 whole potential lymph nodes A2: 2 whole potential lymph nodes A3-A4: 1 potential lymph node, trisected A5-A6: 1 potential node, trisected A7-A9: 1 potential lymph node, trisected Cold ischemia time: Less than 1 minute (time removed from patient: 1235; time placed in formalin: 1235 on 03/22/2025) Formalin fixation time: About 28.5 hours (time removed from formalin: 1700 on 03/23/2025) DAREN Zelaya, KYLAH ([facility]) 03/23/2025 B. Specimen: Right breast segment Received: Fresh Laterality: Right Orientation provided by surgeon: Stitch lyons long lateral short superior Size: Anterior - Posterior: 3.6 cm Medial - Lateral: 2.0 cm Superior - Inferior: 6.1 cm Needle localization wire: A needle localization wires inserting into the lateral aspect of the specimen and courses medially and posteriorly Levels: The specimen is sectioned from superior to inferior in 18 levels. Pin: A metallic pin is identified within levels 12-13 Ink identifiers: Superior = [place], Anterior = Blue, Medial = Red Inferior = Green, Posterior = Black, Lateral = Yellow Potential biopsy cavity site/fibrous area gross morphologic description: Size: Anterior - Posterior: 1.0 cm Medial - Lateral: 1.3 cm Superior - Inferior: 1.2 cm Gross appearance: Severely ill-defined, obstructed by the presence of blue dye, rubbery Fibrous area in level(s): 6-9 Biopsy Clip: In levels 8-9 is a 0.6 x 0.4 x 0.3 cm potential biopsy cavity site. No clip is present. Distance to margins: Superior: 0.5 cm (level 6) Inferior: 2.7 cm Anterior: 0.6 cm (level 6) Posterior: 1.0 cm (levels 8-9) Medial: Abutting Lateral: 0.5 cm (level 9) Other pathology: The remainder of the specimen is 75% yellow lobulated to blue dyed adipose tissue and 25% rubbery and blue dyed fibrous tissue. Cold ischemia time: 25 minutes (Time removed from patient: 1243, Time placed in formalin: 1308 on 03/22/2025) Formalin fixation time: 27 hours 52 minutes (Time removed from formalin 1700 on 03/23/2025.) Electroformer sections are submitted as follows: B1: Electroformer sections from level 1 (superior margin), perpendicularly sectioned B2: Electroformer sections from level 18 (inferior margin), perpendicularly sectioned B3: Electroformer section of level 4 (nodular fibrous tissue to superior and focal medial margin) B4: Electroformer section of level 5 (tissue immediately superior to fibrous area to include superior, focal lateral, anterior, medial margin) B5: Electroformer section of level 6 (fibrous area to medial, nearest superior, and anterior margin) B6: Remainder of level 6 (fibrous area to lateral, posterior, and medial margin) B7-B8: Level 7, bisected and submitted from anterior to posterior (nearest medial margin) B9: Electroformer section of level 8 (lateral, medial, nearest posterior margin) B10: Remainder level 8 (potential biopsy cavity site, fibrous area, lateral, anterior, and medial margins) B11-B12: Level 9, bisected and submitted from anterior to posterior (biopsy cavity site, fibrous area, and nearest posterior and lateral margin) B13: Electroformer section of level 10 (fibrous tissue immediately inferior to biopsy cavity site/fibrous area to include lateral and medial margins) B14: Electroformer section of level 12 (pin site to lateral, anterior, and medial margins) B15: Electroformer section of level 13 (pin site to anterior, medial, and lateral margins) B16: Electroformer sections of levels 15-16 (fibrous tissue to posterior and medial margins) DAREN Zelaya PA ([facility]) 03/23/2025 The remainder of the specimen is submitted as follows: B17: Remainder of level 1 (superior margin), perpendicular B18: Level 2 B19-B20: Level 3, bisected B21: Remainder of level 4 (lateral/focal superior, medial, and posterior margin) B22: Remainder of level 5 (lateral, medial, and posterior margin) B23: Remainder of level 10 (medial, lateral, anterior, and posterior margins) B24-B25: Level 11, bisected and submitted from posterior to anterior B26: Remainder level 12 (lateral and posterior margin) B27: Remainder level 13 (medial, lateral, and posterior margin) B28-B29: Level 14, bisected and submitted from posterior to anterior B30: Electroformer section of level 15 (lateral and posterior margin) B31: Remainder of level 15 (lateral, focal medial, and anterior margin) B32: Electroformer section of level 16 (lateral, inferior, and anterior margin) B33: Remainder of level 16 (lateral and focal posterior margin) B34-B35: Level 17, bisected (B34: Lateral, posterior, and inferior margin; B35: Lateral, anterior, and inferior margin) B36-B37: Remainder of level 18 (inferior margin), perpendicular DAREN Zelaya PA ([facility]) 03/31/2025 04/01/2025 9:33 PM EDT [facility] MICROSCOPIC DESCRIPTION The microscopic examination may have been rendered in whole, or in part, by analyzing high-resolution digital images (whole slide images) on the [facility] Digital Pathology platform validated at [facility]. Part A: An immunostain for pankeratin and one additional deeper level are examined on all blocks, A1-A9. The pankeratin immunostains are negative for metastatic carcinoma cells and only show nonspecific staining. Part B: Immunostains for myoepithelial markers, smooth muscle myosin and p63, in addition to pankeratin, are performed on airline security representative blocks, B3, B6 and B16. In all stained blocks, the myoepithelial stains show a loss of myoepithelial layer around subtle infiltrative tumor, which is highlighted by the pankeratin. These results support the overall histologic impression of widespread minute foci of residual invasive carcinoma, and assist in tumor recognition and margin assessment. Immunohistochemical stains were performed to further evaluate the cellular components. They are necessary for pathological evaluation to establish a more specific diagnosis. All controls are stained appropriately. ASR: Some of the immunohistochemical stains were developed and their performance characteristics determined by [facility]. They have not been cleared or approved by the US Food and Drug Administration. The FDA does not require these tests to go through pre-market FDA review. These tests are used for clinical purposes. They should not be regarded as investigational or for research. This laboratory is certified under the Clinical Laboratory Improvement Amendments (CLIA) as qualified to perform high complexity clinical laboratory testing. 04/01/2025 9:33 PM EDT [facility] BEST TISSUE BLOCK FOR ANCILLARY STUDIES B7, B8 04/01/2025 9:33 PM EDT [facility] SYNOPTIC REPORT CHECKLIST INVASIVE CARCINOMA OF THE BREAST: Resection INVASIVE CARCINOMA OF THE BREAST: RESECTION - All Specimens 8th Edition - Protocol posted: 03/24/2024 SPECIMEN Procedure: Excision (less than total mastectomy) Specimen Laterality: Right TUMOR Tumor Site: Upper inner quadrant Tumor Site: Clock position : 1 o'clock Histologic Type: Invasive carcinoma with features of: mucinous features Histologic Grade (Ward Histologic Score): Glandular (Acinar) / Tubular Differentiation: Score 3 Nuclear Pleomorphism: Score 2 Mitotic Rate: Score 1 Overall Grade: Grade 2 (scores of 6 or 7) Tumor Size: Greatest dimension of largest invasive focus (Millimeters): 3 mm Tumor Focality: Multiple foci of invasive carcinoma Number of Foci: Cannot be determined Sizes of Individual Foci in Millimeters (mm): Innumerable widely dispersed small foci with areas of tumor regression, ranging from 0.1 mm to 3 mm Ductal Carcinoma In Situ (DCIS): Present : Negative for extensive intraductal component (EIC) Size (Extent) of DCIS: Estimated size (extent) of DCIS is at least (Millimeters): 24 mm Architectural Patterns: Cribriform Architectural Patterns: Flat Nuclear Grade: Grade II (intermediate) Necrosis: Not identified Number of Blocks with DCIS: 9 Number of Blocks Examined: 37 Lobular Carcinoma In Situ (LCIS): Not identified Lymphatic and / or Vascular Invasion: Not identified Dermal Lymphatic and / or Vascular Invasion: No skin present Microcalcifications: Present in DCIS Microcalcifications: Present in non-neoplastic tissue Microcalcifications: Acellular mucin Treatment Effect in the Breast: Probable or definite response to presurgical therapy in the invasive carcinoma Treatment Effect in the Lymph Nodes: No lymph node metastases and no fibrous scarring or histiocytic aggregates in the nodes MARGINS Margin Status for Invasive Carcinoma: All margins negative for invasive carcinoma Distance from Invasive Carcinoma to Closest Margin: Less than: 0.1 mm Closest Margin(s) to Invasive Carcinoma: Posterior Closest Margin(s) to Invasive Carcinoma: Superior Distance from Invasive Carcinoma to Anterior Margin: 0.5 mm Distance from Invasive Carcinoma to Inferior Margin: 1.5 mm Distance from Invasive Carcinoma to Medial Margin: 0.1 mm Distance from Invasive Carcinoma to Lateral Margin: 0.2 mm Margin Status for DCIS: All margins negative for DCIS Distance from DCIS to Closest Margin: 0.5 mm Closest Margin(s) to DCIS: Superior Distance from DCIS to Anterior Margin: 2 mm Distance from DCIS to Posterior Margin: Greater than: 5 mm Distance from DCIS to Inferior Margin: Greater than: 5 mm Distance from DCIS to Medial Margin: 2.5 mm Distance from DCIS to Lateral Margin: Greater than: 5 mm REGIONAL LYMPH NODES Regional Lymph Node Status: : All regional lymph nodes negative for tumor Total Number of Lymph Nodes Examined (sentinel and non-sentinel): 8 Number of [place] Nodes Examined: 8 pTNM CLASSIFICATION (AJCC 8th Edition) Reporting of pT, pN, and (when applicable) pM categories is based on information available to the pathologist at the time the report is issued. As per the AJCC (Chapter 1, 8th Ed.) it is the managing physician's responsibility to establish the final pathologic stage based upon all pertinent information, including but potentially not limited to this pathology report. Modified Classification: y pT Category: pT1a T Suffix: (m) pN Category: pN0 ADDITIONAL FINDINGS Additional Findings: Fibroadenomatoid changes, fibrocystic changes, columnar cell changes, ductal epithelial hyperplasia, biopsy site changes SPECIAL STUDIES Estrogen Receptor (ER) Status: Positive (greater than 10% of cells demonstrate nuclear positivity) Percentage of Cells with Nuclear Positivity: 95 % Progesterone Receptor (PgR) Status: Positive Percentage of Cells with Nuclear Positivity: 94 % HER2 (by immunohistochemistry) : Negative (Score 1+) Testing Performed on 04/01/2025 9:33 PM EDT [facility] EMBEDDED IMAGES 04/01/2025 9:33 PM EDT [facility] Tissue STRUCTURE OF RIGHT AXILLARY REGION / Unknown 03/22/2025 12:35 PM EDT 03/22/2025 4:05 PM EDT Tissue specimen (specimen) RIGHT BREAST STRUCTURE / Unknown 03/22/2025 12:43 PM EDT 03/22/2025 1:08 PM EDT Comment:STITCH LYONS LONG LA TERAL SHORT SUPERIOR Aguila Miranda MD PATHOLOGY ORDERABLES Final Result Performing Organization Address [facility] Co de Phone Number [facility] [address] [place] [address] [facility] [address] [place] [address] [phone] * (ABNORMAL) GLUCOSE METER POC (03/22/2025 11:40 AM EDT) [facility] Glucose Meter POC 139(H) 70 - 100 mg/dL 03/22/2025 11:42 AM EDT [facility] Sample Type Capillary 03/22/2025 11:42 AM EDT [facility] Patient Status Non-Critical Patient 03/22/2025 11:42 AM EDT [facility] Blood BLOOD SPECIMEN / Unknown 03/22/2025 11:40 AM EDT 03/22/2025 11:42 AM EDT Aguila Miranda MD POINT OF CARE TEST ORDERABL ES Final Result Performing Organization Address [facility] Co de Phone Number [address] [phone] documented in this encounter Visit Diagnoses Diagnosis Invasive ductal carcinoma of breast, right (HCC)- Primary documented in this encounter Admitting Diagnoses Diagnosis Invasive ductal carcinoma of breast, right (HCC) documented in this encounter Administered Medications Inactive Administered Medications - up to 1 most recent administrations Medication Order MAR Action Action Date Dose Rate Site acetaminophen (TYLENOL) tablet 1,000 mg 1,000 mg, Oral, PREPROCEDURE, 1 dose, Starting on Fri03/21/25 at 0756, Until Fri03/22/25 at 1148, Coanalgesic, Do not give if patient received acetaminophen within the last 6 hours Maximum adult dose of acetaminophen is 4000 mg from all sources in 24 hours., Pre-op (Holding/SDS Meds) Given 03/22/2025 11:48 AM EDT 1,000 mg aprepitant (EMEND) capsule 40 mg 40 mg, Oral, ONCE PREPROCEDURE, 1 dose, On Fri03/21/25 at 0800, Pre-op (Holding/SDS Meds) Given 03/22/2025 11:48 AM EDT 40 mg fentaNYL (SUBLIMAZE) injection 25 mcg 25 mcg, Intravenous, EVERY 5 MIN PRN, Starting on Fri03/22/25 at 1254, Until Fri03/22/25 at 2030, Pain, For initial pain. Maximum dose not to exceed 100 mcg., PACU Given 03/22/2025 2:32 PM EDT 25 mcg insulin aspart U-100 (NovoLOG) injection 1-10 Units 1-10 Units, Subcutaneous, PREPROCEDURE, 1 dose, Starting on Fri03/21/25 at 0756, Until Fri03/22/25 at 1152, Other, Pre-op Hyperglycemia Correction, Type 2 DM weighing at least 80kg: FSBS Correction 121-149 1 unit 150-199 2 units 200-250 4 units 251-300 6 units 301-350 8 units 351-400 10 units Greater than 400___notify anesthesiologist Waste Sort Code = BLACK RCRA Hazardous Waste Container, Pre-op (Holding/SDS Meds) Given 03/22/2025 11:52 AM EDT 1 Units Abdominal Tissue lactated ringers infusion Intravenous, at 50 mL/hr, PREPROCEDURE CONTINUOUS, Starting on Fri03/21/25 at 0756, Until Fri03/22/25 at 1955, To be given in SDS/Pre-op Holding Area, Pre-op (Holding/SDS Meds) New Bag 03/22/2025 11:47 AM EDT 50 mL/hr ondansetron (ZOFRAN) injection 4 mg 4 mg, Intravenous, ONCE PRN, 1 dose, Starting on Fri03/22/25 at 1254, Until Fri03/22/25 at 2030, Nausea, Do not give if patient received granisetron (Kytril) or ondansetron (Zofran) within 4 hours., PACU ondansetron (ZOFRAN-ODT) disintegrating tablet 8 mg 8 mg, Oral, ONCE PRN, 1 dose, Starting on Fri03/22/25 at 1254, Until Fri03/22/25 at 2030, Nausea, Do not give if patient received granisetron (Kytril) or ondansetron (Zofran) within 4 hours., PACU oxyCODONE (ROXICODONE) immediate release tablet 5 mg 5 mg, Oral, EVERY 1 HOUR PRN, Starting on Fri03/22/25 at 1254, Until Fri03/22/25 at 2030, Pain, When tolerating oral intake. Maximum dose not to exceed 10 mg unless otherwise directed by the Anesthesia Coordinator., PACU Given 03/22/2025 2:00 PM EDT 5 mg documented in this encounter Historical Medications * This list may reflect changes made after this encounter. metFORMIN (GLUCOPHAGE) 500 mg Oral Tablet Take 500 mg by mouth 2 times daily. 12/27/2024 hydroCHLOROthiazi de 25 mg Oral Tablet Take 25 mg by mouth daily. 01/12/2025 HUMULIN 70/30 U-100 KWIKPEN 100 unit/mL (70-30) SubQ Insulin Pen Inject 10 Units under the skin 2 times daily (with meals). 02/09/2025 added in this encounter Active and Recently Administered Medications Times are shown in EDT. Scheduled Medication Order 03/20/2025 03/21/2025 03/22/2025 aprepitant (EMEND) capsule 40 mg (COMPLETED) 40 mg, Oral, ONCE PREPROCEDURE, 1 dose, On Fri03/21/25 at 0800, Pre-op (Holding/SDS Meds) 1148 (Given - Provid er: Yoselyn Renae RN) PRN Medication Order 03/20/2025 03/21/2025 03/22/2025 acetaminophen (TYLENOL) tablet 1,000 mg (COMPLETED) 1,000 mg, Oral, PREPROCEDURE, 1 dose, Starting on Fri03/21/25 at 0756, Until Fri03/22/25 at 1148, Coanalgesic, Do not give if patient received acetaminophen within the last 6 hours Maximum adult dose of acetaminophen is 4000 mg from all sources in 24 hours., Pre-op (Holding/SDS Meds) 1148 (Given - Provid er: Yoselyn Renae RN) droPERidol (INAPSINE) injection 0.625 mg 0.625 mg, Intravenous, PRN, Starting on Fri03/22/25 at 1254, Until Fri03/22/25 at 2030, Nausea, If unable to give zofran. Give second dose if nausea unrelieved in 10 minutes. May give total of two doses if needed., PACU fentaNYL (SUBLIMAZE) injection 25 mcg 25 mcg, Intravenous, EVERY 5 MIN PRN, Starting on Fri03/22/25 at 1254, Until Fri03/22/25 at 2030, Pain, For initial pain. Maximum dose not to exceed 100 mcg., PACU 1400 (Given - Provid er: Sharri Arriaga RN)1432 (Given - Provider: Sharri Arriaga RN) HYDROmorphone (DILAUDID) injection 0.5 mg 0.5 mg, Intravenous, EVERY 10 MIN PRN, Starting on Fri03/22/25 at 1254, Until Fri03/22/25 at 2030, Breakthrough Pain, Do not exceed 2 mg in one hour unless otherwise ordered by the Anesthesia Coordinator For pain unrelieved by fentanyl or oral opioid, PACU insulin aspart U-100 (NovoLOG) injection 1-10 Units (COMPLETED) 1-10 Units, Subcutaneous, PREPROCEDURE, 1 dose, Starting on Fri03/21/25 at 0756, Until Fri03/22/25 at 1152, Other, Pre-op Hyperglycemia Correction, Type 2 DM weighing at least 80kg: FSBS Correction 121-149 1 unit 150-199 2 units 200-250 4 units 251-300 6 units 301-350 8 units 351-400 10 units Greater than 400___notify anesthesiologist Waste Sort Code = BLACK RCRA Hazardous Waste Container, Pre-op (Holding/SDS Meds) 1152 (Given - Provid er: Yoselyn Renae RN) isosulfan blue (LYMPHAZURIN) 1 % injection (CANCELED) INTRAPROCEDURE, Starting on Fri03/22/25 at 1234, Until Fri03/22/25 at 1625, Intra-op 1234 (Given - Provid er: Aguila Miranda MD) lactated ringers infusion Intravenous, at 50 mL/hr, PREPROCEDURE CONTINUOUS, Starting on Fri03/21/25 at 0756, Until Fri03/22/25 at 1955, To be given in SDS/Pre-op Holding Area, Pre-op (Holding/SDS Meds) 1147 (New Bag - Prov ider: Earline Ford RN)2030 (Due: Order Ending - Provider: Automatic Discharge Provider - Comment: [Order ends at this time. Document the following action when infusion is complete: Stopped]) lidocaine 0.5% 30mL-marcaine 0.25% 30mL in NS 60mL-OPTIME (CANCELED) 60 mL, INTRAPROCEDURE, Starting on Fri03/22/25 at 1307, Until Fri03/22/25 at 1625, Intra-op 1307 (Given - Provid er: Lena Ng RN/FA) meperidine (DEMEROL) injection (PF) 12.5 mg 12.5 mg, Intravenous, ONCE PRN, 1 dose, Starting on Fri03/22/25 at 1254, Until Fri03/22/25 at 2030, Shivering, Shivering, unless otherwise ordered by Anesthesia Coordinator, PACU ondansetron (ZOFRAN) injection 4 mg(Linked Group 1) 4 mg, Intravenous, ONCE PRN, 1 dose, Starting on Fri03/22/25 at 1254, Until Fri03/22/25 at 2030, Nausea, Do not give if patient received granisetron (Kytril) or ondansetron (Zofran) within 4 hours., PACU ondansetron (ZOFRAN-ODT) disintegrating tablet 8 mg(Linked Group 1) 8 mg, Oral, ONCE PRN, 1 dose, Starting on Fri03/22/25 at 1254, Until Fri03/22/25 at 2030, Nausea, Do not give if patient received granisetron (Kytril) or ondansetron (Zofran) within 4 hours., PACU oxyCODONE (ROXICODONE) immediate release tablet 5 mg 5 mg, Oral, EVERY 1 HOUR PRN, Starting on Fri03/22/25 at 1254, Until Fri03/22/25 at 2030, Pain, When tolerating oral intake. Maximum dose not to exceed 10 mg unless otherwise directed by the Anesthesia Coordinator., PACU 1400 (Given - Provid er: Sharri Arriaga RN) Linked Groups Order Group 1: ondansetron (ZOFRAN) injection 4 mgJump to med 4 mg, Intravenous, ONCE PRN, 1 dose, Starting on Fri03/22/25 at 1254, Until Fri03/22/25 at 2030, Nausea, Do not give if patient received granisetron (Kytril) or ondansetron (Zofran) within 4 hours., PACU Or ondansetron (ZOFRAN-ODT) disintegrating tablet 8 mgJump to med 8 mg, Oral, ONCE PRN, 1 dose, Starting on Fri03/22/25 at 1254, Until Fri03/22/25 at 2030, Nausea, Do not give if patient received granisetron (Kytril) or ondansetron (Zofran) within 4 hours., PACU documented in this encounter Orders Medications Ordered That Misael ht Not Have Been Administered Count Last Ordered Date First Ordered Date droPERidol (INAPSINE) injection 0.625 mg 1 03/22/2025 HYDROmorphone (DILAUDID) injection 0.5 mg 1 03/22/2025 isosulfan blue (LYMPHAZURIN) 1 % injection 1 03/22/2025 lidocaine 0.5% 30mL-marcaine 0.25% 30mL in NS 60mL-OPTIME 1 03/22/2025 meperidine (DEMEROL) injecti on (PF) 12.5 mg 1 03/22/2025 ondansetron (ZOFRAN) injection 4 mg 1 03/22 ondansetron (ZOFRAN-ODT) dis integrating tablet 8 mg 1 03/22/2025 Nursing Count Last Ordered Date First Orde red Date ACKNOWLEDGEMENT OF CONSENT 1 03/22/2025 BLOOD GLUCOSE 1 03/22/2025 NURSING COMMUNICATION 2 03/22/2025 Discharge Count Last Ordered Date First Orde red Date DISCHARGE PATIENT 1 03/22/2025 documented in this encounter Care Teams Special Education Classroom Aide Relationship Specialty Start Date End Date Terrell Faust MD [address] [place] [phone] PCP - General Family Medicine 05/23/14 Adam Dolan MD [address] [place] [id number] Physician Internal Medicine-Cardiovascular Disease 11/18/14 Jane Kelsey MSW Mash Filter Operator 06/03/24 documented as of this encounter
--- OUTSIDE RECORDS SUMMARY | 2025-03-22 12:00 | XMS_ITS | Encounter Summary ---
Author Organization [place] [address] Care Team Providers Care Senior It Engineer Name Role Phone Christianne Bean MD, Terrell Primary Care Provider + Adam Dolan MD Unavailable [phone] Jane Kelsey POWER GENERATION ENGINEER Unavailable [phone] Reason for Visit * Auth/Cert/Inpt Specialty Diagnoses / Procedures Referred By Sherine t Referred To Contact Diagnoses Invasive ductal carcinoma of breast, right (HCC) Invasive ductal carcinoma of breast, right (HCC) [C50.911] Procedures FL MASTECTOMY PARTIAL FL BX/EXC LYMPH NODE OPEN DEEP AXILLARY NODE Right breast mammogram guided segmentectomy, sentinel lymph node dissection Referral ID Status Reason Start Date Expiration Date Visits Re quested Visits Authorized [id number] 1 1 Encounter Details Date Type Department Care Team (Late st Contact Info) Description 03/22/2025 12:00 PM EDT - 03/22/2025 1:35 PM EDT Surgery EDG [place] [address] Aguila Miranda MD [address] [place] [address] [address] [place] [address] BREAST LUMPECTOMY/ SEGMENTECTOMY/ AXILLARY SENTINEL NODE BIOPSY (COVERS MAMMOGRAM GUIDED/NEEDLE PLACEMENT OR MIRNA SPRAGGER) Surgery Details Date/Time Status Location OR Service Patient Class Case Class Case Type Trauma Case? 03/22/2025 12:00 PM Posted EDG MAIN OR EDG Room 05 General Same Day Surgery Semi-Urge nt - 2 Wks Panel 1 Procedure LRB Anes Op Region Wound Class Comments BREAST LUMPECTOMY/ SEGMENTECTOMY/ AXILLARY SENTINEL NODE BIOPSY (COVERS MAMMOGRAM GUIDED/NEEDLE PLACEMENT OR MIRNA SPRAGGER) Right General Breast Clean Right breast mammogram guided segmentectomy, sentinel lymph node dissection Surgeon Surgeon Role Service Panel Aguila Miranda MD Primary General 1 Special Needs needle loc 03/22/25 @ 10:30am edg bcsk documented in this encounter Social History Tobacco Use Types Packs/Day Years [...] Sign Reading Time Taken Comments Blood Pressure 94/68 03/22/2025 1:30 PM EDT Pulse 83 03/22/2025 1:35 PM EDT Temperature 36.4 C (97.6 F) 03/22/2025 1:20 PM EDT Respiratory Rate 13 03/22/2025 1:35 PM EDT Oxygen Saturation 98% 03/22/2025 1:35 PM EDT Inhaled Oxygen Concentration - - [...] the catheter or the pump, call the [employer] hot-line number. Clamp off the catheter and call the anesthesiologist nuclear radiation engineer at [facility] ([phone], ext [phone]) immediately for any of these symptoms: Ringing [...] the block and/or your pain medicines. +++++++++++++++++++++++++++++++++++++++++++++++++++++++++++++++++++ [facility] Discharge Instructions - Following Anesthesia We appreciate [...] our office at . Get Well Soon! [place] +++++++++++++++++++++++++++++++++++++++++++++++++++++++++++++++++++ OPERATIVE SITE INSTRUCTIONS: If Skin [...] results call the [facility] at [phone], 3 days post procedure for an appointment within 7-10 days from your surgery. If you are not a patient of [facility], call [phone]. Notify Dr. Miranda at [phone] for problems such as : Check your [...] PM EDT Discharge Medication Delivery Service DMD materials technician has delivered the following medications for Lindsey Dougherty: Rx#[id number]:TRAMADOL 50 MG TABLET-50 mg EVERY 6 HOURS PRN Date/Time of Delivery: 03/22/2025 2:36 PM Delivered to: placed on bedside table in PACURa Benz(RN) present and aware Please contact DMD materials technician with any questions. Thanks! Donny Neal CPhT documented in this encounter H&P Notes * Dimitris Bowser APRN - 03/22/2025 11:30 AM EDT [facility] History and Physical Name: Lindsey Dougherty ADDRESS: [address] [place] [address] : 1960 AGE: 64 y.o. ASSESSMENT: Invasive [...] Miranda MD - 03/22/2025 1:11 PM EDT [place] Node Biopsy for Breast Cancer - Right [...] lymph node biopsy. SURGEON: Aguila Miranda MD DISPLAY DECORATOR: None. ANESTHESIA: General. INDICATIONS: Ms. Dougherty is [...] Aguila Miranda M.D. By: Daniel Job ID: [id number] Doc ID: [id number] * Aguila Miranda MD - 03/22/2025 12:[address] [facility] 2 OPERATIVE/PROCEDURE NOTE Lindsey Dougherty I March 22, 2025 Body mass index is 27.57 kg/m??. PRE-OP DIAGNOSIS: Invasive ductal carcinoma of breast, right (HCC) [C50.911] POST-OP DIAGNOSIS: Invasive ductal carcinoma of breast, right (HCC) [C50.911] PROCEDURE(S): Procedure(s): Right breast mammogram guided segmentectomy, sentinel lymph node dissection SURGEON(S): Surgeons and Role: * Aguila Miranda MD - Primary DISPLAY DECORATOR(S): ANESTHESIA: General SPECIMENS: ID Type Source Tests Collected by Time Destination 1 : BLUE NODE RIGHT AXILLA Tissue Axilla, Right PATHOLOGY TISSUE REQUEST Aguila Miranda MD 03/22/2025 1235 2 : RIGHT BREAST SEGMENT Tissue Breast, Right PATHOLOGY TISSUE REQUEST Aguila Miranda MD 03/22/2025 1243 ESTIMATED BLOOD LOSS (mls): [...] Ifnot received, call your surgeon's office. Location: [facility] Medications on the Day of Surgery Take [...] in [place] )on the day of surgery [facility] DIABETIC INSTRUCTIONS-ORAL MEDS: Day before Surgery:Take all diabetic meds as usual unless your doctor gives you other instructions., Do not take any oral DIABETIC medications the morning of surgery., and We will check your blood sugar when you get to the hospital and throughout the day. [facility] DIABETIC INSTRUCTIONS- MIXED INSULIN: Morning [...] No alcohol 24 hours prior to surgery. Leaf Tier It is important to have a Leaf Tier, someone who is 18 years or older, [...] concern, please reach out to our department [phone]. Hygiene [place] your teeth and gargle the morning of surgery. Shower the morning of surgery or the night before. Do not wear makeup (including eye makeup) lotion, powder, deodorant, perfume, or cologne. Do not shave the operative extremity or near the operative area. Remove nail japanese prior to surgery. This includes artificial nails and gel nail japanese. Personal Items Wear clean, simple, loose-fitting clothing (no jeans) and sturdy shoes (no flip flops, slides or crocs) to the hospital. Do not bring unnecessary valuables with you. It is policy that [facility] does not assume responsibility for lost, stolen [...] your Living Will and/or Durable Power of Master Data Analyst for Healthcare. Notify the Surgeon Notify your surgeon if you develop any illness (fever, cold, cough, sore throat, nausea, vomiting, skin rashes etc.) between now and surgery time Notify your surgeon and Pre-admission testing ([phone]) if you have any changes in your healthconditions or if any new medications are ordered between now and surgery.. Questions or Concerns? If you have any questions or concerns, feel free to call the Pre-Admission testing department at [phone]. We want to make sure you feel safe and have an excellent experience while you are here. Do not reply to this message through [employer] as it may not be answered promptly. Same Day Surgery Unit - [facility] at [phone]; [facility] SDS: Patient Entrance 3A, stop at check-in desk. [address] [place] [phone]. Please do not reply to this message. Please call Pre-admission testing [phone] with questions. DOORS OPEN AT 5:00 AM [...] [place] ([place]); InfectiousDiseases Society of [place] (IDSA); [place] [facility] [employer]; Association for Professionals inInfection Control [...] EDT Appointment [facility] [place] [id number] Michael Wallace MD [address] [place] [address] [place] [address] 10/27/2025 12:30 PM EST Appointment [facility] [place] [address] Aguila Miranda MD [address] [place] [address] [address] SWIFT [address] [place] [address] 10/27/2025 1:00 PM EST Appointment [facility] [place] [address] Samantha Paredes PA-C [address] [place] [address] [address] [place] [address] documented as of this encounter Goals Goal Patient Goal Type Associated Problems Recent Progress Patient-Stated? Author Breast [facility] Breast [facility] On track( 025 12:16 PM EDT) Olivia Dugan, RN Note: Patient acknowledges understanding of new diagnosis, plan of care, available resources and how to contact Nurse Navigator with any future questions or concerns. Breast [facility] Breast [facility] On track( 025 11:12 AM EDT) No [...] Invasive ductal carcinoma of breast, right (HCC) FL BX/EXC LYMPH NODE OPEN DEEP AXILLARY NODE 03/22/2025 12:13 PM EDT Invasive ductal carcinoma of breast, right (HCC) Special Needs needle loc 03/22/25 @ 10:30am edg bcsk FL MASTECTOMY PARTIAL 03/22/2025 12:13 PM EDT Invasive [...] next breast imaging, in accordance with the [place] [employer] and the Society of [...] next breast imaging, in accordance with the [place] [employer] and the Society of Breast Imaging recommendations. *Breast Imaging has a false negative rate of 15%. *Any patient with a palpable abnormality, unexplained by breast imaging,should be managed on a clinical basis by the attending physician. Aguila Miranda MD IM MAMMOGRAPHY ORDERABLES Final Result * PATHOLOGY TISSUE REQUEST (03/22/2025 12:35 PM EDT) CASE REPORT Surgical Pathology Case: [id number] Authorizing Provider: Aguila Miranda MD Collected: 03/22/2025 1235 Ordering Location: [facility] Received: 03/22/2025 1605 Pathologist: Poornima Hernandez MD Specimens: A) - Axilla, Right, BLUE NODE RIGHT AXILLA B) - Breast, Right, RIGHT BREAST SEGMENT 04/01/2025 9:33 PM EDT [facility] FINAL DIAGNOSIS A. SENTINEL LYMPH NODE, [...] - See comment. 04/01/2025 9:33 PM EDT [facility] at 2132 EDT COMMENT Part B: [...] was performed on the previous biopsy specimen ([id number]) and is incorporated in the synoptic report. If of clinical interest, a breast prognostic marker panel can be repeated on the current specimen. 04/01/2025 9:33 PM EDT [facility] GROSS DESCRIPTION A. Received in formalin [...] formalin: 1700 on 03/23/2025) DAREN Zelaya, KYLAH ([facility]) 03/23/2025 B. Specimen: Right breast segment [...] within levels 12-13 Ink identifiers: Superior = [place], Anterior = Blue, Medial = Red Inferior [...] (Time removed from formalin 1700 on 03/23/2025.) Newspaper Journalist sections are submitted as follows: B1: Newspaper Journalist sections from level 1 (superior margin), perpendicularly sectioned B2: Newspaper Journalist sections from level 18 (inferior margin), perpendicularly sectioned B3: Newspaper Journalist section of level 4 (nodular fibrous tissue to superior and focal medial margin) B4: Newspaper Journalist section of level 5 (tissue immediately superior to fibrous area to include superior, focal lateral, anterior, medial margin) B5: Newspaper Journalist section of level 6 (fibrous area to medial, nearest superior, and anterior margin) B6: Remainder of level 6 (fibrous area to lateral, posterior, and medial margin) B7-B8: Level 7, bisected and submitted from anterior to posterior (nearest medial margin) B9: Newspaper Journalist section of level 8 (lateral, medial, nearest posterior margin) B10: Remainder level 8 (potential biopsy cavity site, fibrous area, lateral, anterior, and medial margins) B11-B12: Level 9, bisected and submitted from anterior to posterior (biopsy cavity site, fibrous area, and nearest posterior and lateral margin) B13: Newspaper Journalist section of level 10 (fibrous tissue immediately inferior to biopsy cavity site/fibrous area to include lateral and medial margins) B14: Newspaper Journalist section of level 12 (pin site to lateral, anterior, and medial margins) B15: Newspaper Journalist section of level 13 (pin site to anterior, medial, and lateral margins) B16: Newspaper Journalist sections of levels 15-16 (fibrous tissue to posterior and medial margins) DAREN Zelaya PA ([facility]) 03/23/2025 The remainder of the specimen [...] and submitted from posterior to anterior B30: Newspaper Journalist section of level 15 (lateral and posterior margin) B31: Remainder of level 15 (lateral, focal medial, and anterior margin) B32: Newspaper Journalist section of level 16 (lateral, inferior, and anterior margin) B33: Remainder of level 16 (lateral and focal posterior margin) B34-B35: Level 17, bisected (B34: Lateral, posterior, and inferior margin; B35: Lateral, anterior, and inferior margin) B36-B37: Remainder of level 18 (inferior margin), perpendicular DAREN Zelaya PA ([facility]) 03/31/2025 04/01/2025 9:33 PM EDT [facility] MICROSCOPIC DESCRIPTION The microscopic examination may have been rendered in whole, or in part, by analyzing high-resolution digital images (whole slide images) on the [employer] Digital Pathology platform validated at [facility]. Part A: An immunostain for pankeratin and one additional deeper level are examined on all blocks, A1-A9. The pankeratin immunostains are negative for metastatic carcinoma cells and only show nonspecific staining. Part B: Immunostains for myoepithelial markers, smooth muscle myosin and p63, in addition to pankeratin, are performed on insurance service representative blocks, B3, B6 and B16. In [...] developed and their performance characteristics determined by [facility]. They have not been cleared or approved [...] complexity clinical laboratory testing. 04/01/2025 9:33 PM T [facility] BEST TISSUE BLOCK FOR ANCILLARY STUDIES B7, B8 04/01/2025 9:33 PM EDT [facility] SYNOPTIC REPORT CHECKLIST INVASIVE CARCINOMA OF THE BREAST: Resection INVASIVE CARCINOMA OF THE BREAST: RESECTION - All Specimens 8th Edition - Protocol posted: 03/24/2024 SPECIMEN Procedure: Excision (less than total mastectomy) Specimen Laterality: Right TUMOR Tumor Site: Upper inner quadrant Tumor Site: Clock position : 1 o'clock Histologic Type: Invasive carcinoma with features of: mucinous features Histologic Grade ([place] Histologic Score): Glandular (Acinar) / Tubular Differentiation: [...] Examined (sentinel and non-sentinel): 8 Number of [place] Nodes Examined: 8 pTNM CLASSIFICATION (AJCC 8th [...] Testing Performed on 04/01/2025 9:33 PM EDT [facility] EMBEDDED IMAGES 04/01/2025 9:33 PM EDT [facility] Tissue STRUCTURE OF RIGHT AXILLARY REGION / Unknown 03/22/2025 12:35 PM EDT 03/22/2025 4:05 PM EDT Tissue specimen (specimen) RIGHT BREAST STRUCTURE / Unknown 03/22/2025 12:43 PM EDT 03/22/2025 1:08 PM EDT Comment:STITCH LYONS [place] KAROLYN TEJEDA DECATUR Aguila Miranda MD PATHOLOGY ORDERABLES Final Result [facility] [address] [place] [address] [place] [address] * (ABNORMAL) GLUCOSE METER POC (03/22/2025 11:40 AM EDT) Glucose Meter POC 139(H) 70 - 100 mg/dL 03/22/2025 11:42 AM EDT [facility] Sample Type Capillary 03/22/2025 11:42 AM EDT [facility] Patient Status Non-Critical Patient 03/22/2025 11:42 AM EDT [facility] Blood BLOOD SPECIMEN / Unknown 03/22/2025 11:40 AM EDT 03/22/2025 11:42 AM EDT us Aguila Miranda MD POINT OF CARE TEST ORDERABL ES Final Result [facility] [id number] documented in this encounter Visit Diagnoses Diagnosis Invasive ductal carcinoma of breast, right (HCC)- Primary Invasive ductal carcinoma of breast, right (HCC) documented in this encounter Admitting Diagnoses Diagnosis [...] 11:52 AM EDT 1 Units Abdominal Tissue isosulfan blue (LYMPHAZURIN) 1 % injection INTRAPROCEDURE, Starting on Fri03/22/25 at 1234, Until Fri03/22/25 at 1625, Intra-op Given 03/22/2025 12:34 PM EDT 5 mg Other lactated ringers infusion Intravenous, at 50 mL/hr, PREPROCEDURE CONTINUOUS, Starting on Fri03/21/25 at 0756, Until Fri03/22/25 at 1955, To be given in SDS/Pre-op Holding Area, Pre-op (Holding/SDS Meds) New Bag 03/22/2025 11:47 AM EDT 50 mL/hr lidocaine 0.5% 30mL-marcaine 0.25% 30mL in NS 60mL-OPTIME 60 mL, INTRAPROCEDURE, Starting on Fri03/22/25 at 1307, Until Fri03/22/25 at 1625, Intra-op Given 03/22/2025 1:07 PM EDT 30 mL ondansetron (ZOFRAN) injection 4 mg 4 mg, [...] HYDROmorphone (DILAUDID) injection 0.5 mg 1 03/22/2025 meperidine (DEMEROL) injecti on (PF) [...] 03/22/2025 documented in this encounter Care Teams Senior It Engineer Relationship Specialty Start Date End Date Terrell Faust MD [address] [place] [phone] PCP - General Family Medicine 05/23/14 Adam Dolan MD [address] [place] [id number] Physician Internal Medicine-Cardiovascular Disease 11/18/14 Jane Kelsey, POWER GENERATION ENGINEER Legger Press Operator 06/03/24 documented as of this encounter
--- OUTSIDE RECORDS SUMMARY | 2025-03-22 12:13 | XMS_ITS | Encounter Summary ---
Author Organization [place] [address] Care Team Providers Care Wheel Truer Name Role Phone Christianne Bean MD, Terrell Primary Care Provider + Adam Dolan MD Unavailable [phone] Jane Kelsey REPORTING CONSULTANT Unavailable [phone] Reason for Visit * Auth/Cert/Inpt Specialty Diagnoses / Procedures Referred By Sherine t Referred To Contact Diagnoses Invasive ductal carcinoma of breast, right (HCC) Invasive ductal carcinoma of breast, right (HCC) [C50.911] Procedures CA MASTECTOMY PARTIAL CA BX/EXC LYMPH NODE OPEN DEEP AXILLARY NODE Right breast mammogram guided segmentectomy, sentinel lymph node dissection Referral ID Status Reason Start Date Expiration Date Visits Re quested Visits Authorized [id number] 1 1 Encounter Details Date Type Department Care Team (Late st Contact Info) Description 03/22/2025 12:13 PM EDT Anesthesia Event EDG PERIOP [facility] [address] [place] [id number] Varsha Cortez MD [address] [facility] [address] [place] [address] Jessica Mckeon APRN [address] [place] [address] [place] [address] Anesthesia Record Procedure Summary Procedure Name Responsible Anesthesiologist Anesthesia Start Time Anesthesia Stop Time BREAST LUMPECTOMY/ SEGMENTECTOMY/ AXILLARY SENTINEL NODE BIOPSY (COVERS MAMMOGRAM GUIDED/NEEDLE PLACEMENT OR [employer] CUST[employer]IAN) (Right: Breast) Varsha Cortez MD 03/22/25 1213 03/22/25 1320 Events Date Time Event Comment 03/22/2025 1145 AN Equip Check 1205 1213 An Start 1215 An Start Data 1215 Immediate Pre Anesthetic Ass es 1220 An Induction 1222 An Intubation 1225 Anesthesia Ready 1228 Time out 1229 Incision 1313 An Emergence 1313 An Extubation 1316 an stop data 1320 An Stop 1320 Handoff I completed my SBAR handoff to the receiving nurse which has included the followin. Identification of the patient, family, or patient surrogate 2. Identification of the responsible practitioner 3. Pertinent medical history 4. Surgical procedure and reason for procedure 5. Intraoperative anesthetic management 6. All current lines, drains and respiratory support. 7. Outstanding follow up orders (X-rays, consults etc) 8. Expectations/Plans for the early post-procedure period 9. Opportunity for questions and acknowledgement of understanding from the receiving PACU/ICU executive officer special warfare team Meds Name Total midazolam (VERSED) injection 1 mg/mL 2 m g lidocaine injection 1% 50 mg fentaNYL 50 MCG/ML INJ 100 mcg propofol (DIPRIVAN) injection 150 mg ephedrine injection 20 mg phenylephrine 100 mcg/ml 10ml (syringe) 500 mcg ondansetron (ZOFRAN) injection 4 mg /2 m L 4 mg glycopyrrolate (ROBINUL) injection 0.2 m g ceFAZolin (ANCEF) 2 g IVPB (PYXIS) 2 g diphenhydrAMINE (BENADRYL) injection 12. 5 mg lactated ringers infusion 500 mL * Agents Name O2 N2O Air Et Sevoflurane * Blood No blood administrations on file. Lines, Drains, and Airways Type Details Placement Removal Peripheral IV 03/22/25; 1147; 20; Left; Hand; Earline RN; 1; 03/22/25; 1620; Therapy completed, Discharged, Per Protocol; Catheter intact, Dressing applied, No Complications 03/22/25 1147 by Earline Ford RN 03/22/25 1620 by Chip Morales, NAM Airway Device: LMA; Size: 4 ; Placement Date: 03/22/25; Placement Time: 1222 (created via procedure documentation); Removal Date: 03/22/25; Removal Time: 1313 03/22/25 1222 by Sangita Rogel CRNA 03/22/25 1313 by Sangita Rogel CRNA Incision/Wound 03/22/25; 1233; [address] st; Right; 03/22/25; 202403/22/25 1233 by Earline Escobedo RN 03/22/252024 by Discharge Provider, Automatic documented in this encounter Social History Tobacco [...] on file documented as of this encounter Procedure Notes * Sangita Rogel CRNA - 03/22/2025 12:27 PM EDTAssociated Order(s): Intraop Airway Placement Intraop Airway Placement: Date/Time: 03/22/2025 12:22 PM Induction type: IV Mask size: Standard adult Pre-Oxygenation: Standard Mask ventilation: Easy mask ventilation Airway type: LMA Airway location: Oral Device size: 4 Secured by: Tape Placement verified: Auscultation, End tidal CO2 and Symmetric chest wall motion Condition: Unchanged and Atraumatic Insertion attempts: 1 documented in this encounter OR Notes * Anesthesia Postprocedure Evaluation - Davey Horta IV, MD - 03/22/2025 5:58 PM EDT Post-Anesthesia Evaluation Note Patient Name: Lindsey Dougherty I Patient Date: March 22, 2025 Post-Anesthesia Evaluation Patient Location: SDS Post op vitals: stable Nausea controlled: yes Level of consciousness: awake, alert and oriented Post anesthesia pain: adequate analgesia Airway patency: patent Respiratory status: room air Cardiovascular status: stable Hydration status: euvolemic Perioperative complications: NONE Vitals Value Taken Time BP 102/54 03/22/25 15:00 Resp 15 03/22/25 15:00 SpO2 93 % 03/22/25 15:00 Temp 36.1 ??C (97 ??F) 03/22/25 14:45 Pulse 75 03/22/25 15:00 * Anesthesia Preprocedure Evaluation - Maurilio Galarza MD - 03/22/2025 12:03 PM EDT Pre-Anesthesia Evaluation Note Patient Name: Lindsey Dougherty I Sex: female Patient : 1960 Age: 64 y.o. Patient Date: March 22, 2025 Procedure(s): BREAST LUMPECTOMY/ SEGMENTECTOMY/ AXILLARY SENTINEL NODE BIOPSY (COVERS MAMMOGRAM GUIDED/NEEDLE PLACEMENT OR [employer] CUST[employer]IAN) (Right: Breast) Anesthesia Evaluation Previous anesthesia. History of anesthetic complications: PONV Airway Mallampati: I Dental Dental exam findings: poor, edentulous and upper dentures Pulmonary (+) History of tobacco use (1 ppd): current Physical exam: Comments: Clear to auscultation Cardiovascular (+)Hypertension: well controlled Hyperlipidemia Valvular problems/murmurs: Murmur ECG reviewed Physical exam: Rhythm: regular Rate: normal Neuro/Psych (+) Cerebrovascular disease (2018): stroke Psychiatric history: Depression GI/Hepatic/Renal Endo/Other (+)Diabetes mellitus (A1c 14.5 on 12/2024-- new dx at that time): type 2, poorly controlled and using insulin Anemia 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 EKG 12/22/24- SINUS RHYTHM WITH FIRST DEGREE AV BLOCK POSSIBLE LEFT ATRIAL ENLARGEMENT POSSIBLE ANTERIOR MYOCARDIAL INFARCTION, OF INDETERMINATE AGE Opioids : Naive Body mass index is 27.57 kg/m??. Anesthesia Plan ASA 3 Last solid intake: The patient has not eaten within the last 8 hours. Last clear liquid intake: The patient has not had clear liquids within the last 2 hours. Last tobacco use: The patient has used tobacco today. Anesthesia Plan: general Induction: intravenous Monitors: STD Emend Saw PCP 02/09/25 and insulin adjusted. PONV Risk Score: 3. Score of 3 or more is High Risk for PONV, combination antiemetic prophylaxis isindicated. PCP Clearance Obtained Chart Reviewed documented in this encounter Miscellaneous Notes * PAT Pre Evaluation for Anesthesia - Jessica Mckeon APRN - 03/15/2025 3:34 PM EDT Pre-Anesthesia Evaluation Note Patient Name: Lindsey Dougherty I Sex: female Patient : 1960 Age: 64 y.o. Patient Date: March 15, 2025 Procedure(s): BREAST LUMPECTOMY/ SEGMENTECTOMY/ AXILLARY SENTINEL NODE BIOPSY (COVERS MAMMOGRAM GUIDED/NEEDLE PLACEMENT OR [employer] CUSTODIAN) (Right: Breast) Anesthesia Evaluation Previous anesthesia. 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 EKG 12/22/24- SINUS RHYTHM WITH FIRST DEGREE AV BLOCK POSSIBLE LEFT ATRIAL ENLARGEMENT POSSIBLE ANTERIOR MYOCARDIAL INFARCTION, OF INDETERMINATE AGE Opioids : Naive Body mass index is 28.19 kg/m??. Anesthesia Plan Anesthesia Plan: general Emend Saw PCP 02/09/25 and insulin adjusted. PONV Risk Score: 3. Score of 3 or more is High Risk for PONV, combination antiemetic prophylaxis isindicated. PCP Clearance Obtained Chart Reviewed documented in this encounter Plan of Treatment Upcoming Encounters Date Type Department Care Team (Late st Contact Info) Description 05/16/2025 11:00 AM EDT Appointment [facility] [place], [place] [id number] Michael Wallace MD [address] [place] [address] 10/27/2025 12:[address] [facility] [address] Aguila Miranda MD [address] [place] [address] [address] [place] [address] 10/27/2025 1:00 PM EST Appointment [facility] [place] [address] Samantha Paredes PA-C [address] [place] [address] [address] [place] [address] documented as of this encounter Goals Goal Patient Goal Type Associated Problems Recent Progress Patient-Stated? Author [facility] Breast [facility] On track( 025 12:16 PM EDT) Olivia Dugan, RN Note: Patient acknowledges understanding of new diagnosis, plan of care, available resources and how to contact Nurse Navigator with any future questions or concerns. [facility] On track( 025 11:12 AM EDT) No Dianna Issa, RN Note: Patient will be compliant with taking Aromatase Inhibitor daily and understands who to contact to discuss any side effects or complications. documented as of this encounter Procedures Procedure Name Priority Date/Time Associated Diagnosis Comments INTRAOP AIRWAY PLACEMENT Routine 03/22/2025 12:22 PM EDT documented in this encounter Results * INTRAOP AIRWAY PLACEMENT (03/22/2025 12:22 PM EDT) Narrative [facility] - 03/22/2025 12:22 PM EDT Sangita Rogel CRNA 03/22/2025 12:28 PM Intraop Airway Placement: Date/Time: 03/22/2025 12:22 PM Induction type: IV Mask size: Standard adult Pre-Oxygenation: Standard Mask ventilation: Easy mask ventilation Airway type: LMA Airway location: Oral Device size: 4 Secured by: Tape Placement verified: Auscultation, End tidal CO2 and Symmetric chest wall motion Condition: Unchanged and Atraumatic Insertion attempts: 1 us Varsha Cortez MD [place] ANESTHESIA Final Result [facility] [address] [place] [address] documented in this encounter Visit Diagnoses Not on filedocumented in this encounter Administered Medications Inactive Administered Medications - up to 1 most recent administrations Medication Order MAR Action Action Date Dose Rate Site ceFAZolin (ANCEF) IVPB 2 g Intravenous, PRN (Anesthesia), Starting on Fri03/22/25 at 1226, Until Fri03/22/25 at 1321, Administer over 30 Minutes, Anesthesia Intra-op Given 03/22/2025 12:26 PM EDT 2 g diphenhydrAMINE (BENADRYL) injection Intravenous, PRN (Anesthesia), Starting on Fri03/22/25 at 1231, Until Fri03/22/25 at 1321, Anesthesia Intra-op Given 03/22/2025 12:31 PM EDT 12.5 mg ePHEDrine injection Intravenous, PRN (Anesthesia), Starting on Fri03/22/25 at 1233, Until Fri03/22/25 at 1321, Anesthesia Intra-op Given 03/22/2025 12:58 PM EDT 10 mg fentaNYL (SUBLIMAZE) injection Intravenous, PRN (Anesthesia), Starting on Fri03/22/25 at 1225, Until Fri03/22/25 at 1321, Anesthesia Intra-op Given 03/22/2025 12:35 PM EDT 50 mcg glycopyrrolate (ROBINUL) injection Intravenous, PRN (Anesthesia), Starting on Fri03/22/25 at 1244, Until Fri03/22/25 at 1321, Anesthesia Intra-op Given 03/22/2025 12:44 PM EDT 0.2 mg lactated ringers infusion Intravenous, CONTINUOUS PRN, Starting on Fri03/22/25 at 1213, Until Fri03/22/25 at 1321, Anesthesia Intra-op New Bag 03/22/2025 12:13 PM EDT lidocaine 1% 10 mg/mL (1 %) injection Intravenous, PRN (Anesthesia), Starting on Fri03/22/25 at 1220, Until Fri03/22/25 at 1321, Anesthesia Intra-op Given 03/22/2025 12:20 PM EDT 50 mg midazolam (VERSED) injection Intravenous, PRN (Anesthesia), Starting on Fri03/22/25 at 1218, Until Fri03/22/25 at 1321, Anesthesia Intra-op Given 03/22/2025 12:18 PM EDT 2 mg ondansetron (ZOFRAN) injection Intravenous, PRN (Anesthesia), Starting on Fri03/22/25 at 1231, Until Fri03/22/25 at 1321, Anesthesia Intra-op Given 03/22/2025 12:31 PM EDT 4 mg phenylephrine injection Intravenous, PRN (Anesthesia), Starting on Fri03/22/25 at 1230, Until Fri03/22/25 at 1321, Anesthesia Intra-op Given 03/22/2025 12:58 PM EDT 100 mcg propofoL (DIPRIVAN) injection Intravenous, PRN (Anesthesia), Starting on Fri03/22/25 at 1220, Until Fri03/22/25 at 1321, Anesthesia Intra-op Given 03/22/2025 12:20 PM EDT 150 mg documented in this encounter Care Teams Wheel Truer Relationship Specialty Start Date End Date Terrell Faust MD [address] [place] [phone] PCP - General Family Medicine 05/23/14 Adam Dolan MD [address] [place], [place] [id number] Physician Internal Medicine-Cardiovascular Disease 11/18/14 Jane Kelsey MSW Technology Services Manager 06/03/24 documented as of this encounter
--- OUTSIDE RECORDS SUMMARY | 2025-04-04 10:20 | XMS_ITS | Encounter Summary ---
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 Name Role Phone Christianne Bean MD, Terrell Primary Care Provider + Adam Dolan MD Unavailable [phone] Jane Kelsey Unavailable [phone] Reason for Referral * Consultation (Routine) - Pending Review Specialty Diagnoses / Procedures Referred By Contac t Referred To Contact Diagnoses Invasive ductal carcinoma of breast, right (HCC) Procedures NE OFFICE/OUTPATIENT NEW MODERATE MDM 45 MINUTES Aguila Miranda MD [address] [place] [address] [address] [place] [address] Phone: tel: fax: Referral ID Status Reason Start Date Expiration Date V isits Requested Visits Authorized [id number] Pending Review 04/04/2025 04/04/2026 1 1 Reason for Visit * Reason Comments Follow-up Encounter Details Date Type Department Care Team (Latest Contact Info) Description 04/04/2025 10:20 AM EDT - 04/04/2025 11:59 PM EDT Hospital Encounter [facility] [place] [address] Aguila Miranda MD [address] [place] [address] [place] [address] Invasive ductal carcinoma of breast, right (HCC) (Primary Dx); Postop check Discharge Disposition: Home or Self Care Social [...] Sign Reading Time Taken Comments Blood Pressure 129/75 04/04/2025 10:36 AM EDT Pulse 90 04/04/2025 10:36 AM EDT Temperature 36.3 C (97.3 F) 04/04/2025 10:36 AM EDT Respiratory Rate - - Oxygen Saturation - - Inhaled Oxygen Concentration - - Weight 79.9 kg (176 lb 1.6 oz) 04/04/2025 10:36 AM EDT Height 170.2 cm (5' 7 ) 04/04/2025 10:36 AM EDT Body Mass Index 27.58 04/04/2025 10:36 AM EDT documented in this encounter Discharge Instructions * Attachments The following attachments cannot be sent through Care Everywhere. * [facility] SURGICAL SITE INFECTIONS FAQS - (GERMAN) documented in this encounter Medications at Time [...] needed for Pain. 40 Tab 0 11/23/2014 documented as of this encounter Discharge Disposition Disposition Code Departure Means Destination Home or Self Care documented in this encounter Progress Notes * Aguila Miranda MD - 04/04/2025 10:20 AM EDTAssociated Problem(s): Invasive ductal carcinoma of breast, right (HCC) Orders: AMB REFERRAL TO RADIATION ONCOLOGY * Aguila Miranda MD - 04/04/2025 10:20 AM EDT Images from the original note were not included. Subjective: Ms. Dougherty is here for a scheduled routine follow-up visit History of Present Illness The patient is a 64 y.o. female who presents with a complaint of surgical follow up S/p 03/22/25 Right breast mammogram guided segmentectomy, sentinel lymph node dissection I have confirmed and addended the HPI and thus it represents my work HPI Past Medical History: Diagnosis Date Anemia Cancer (HCC) breast rt Depression Heart murmur Hyperlipidemia Hypertension Postoperative nausea and vomiting Stroke (HCC) 2018 Patient Active Problem List Diagnosis Date Noted Invasive ductal carcinoma of breast, right (HCC) 05/19/2024 Seroma, postoperative 12/13/2014 Umbilical hernia 11/23/2014 Umbilical hernia 11/23/2014 Murmur, diastolic 11/10/2014 Incarcerated ventral hernia 05/23/2014 Unspecified essential hypertension 05/23/2014 Tobacco use disorder 05/23/2014 Past Surgical History: Procedure Laterality Date BREAST BIOPSY Right 05/17/2024 1:00 UIQ posterior with T3 placement BREAST LUMPECTOMY Right 03/22/2025 Right breast mammogram guided segmentectomy, sentinel lymph node dissection; Surgeon: Aguila Miranda MD; Location: [facility]; Service: General FRACTURE SURGERY upper left arm HAND SURGERY HERNIA REPAIR N/A 11/23/2014 LAPAROSCOPIC ASSISTED UMBILICAL HERNIA REPAIR WITH MESH.; Surgeon: Vinicius Read MD; Location: [facility]; Service: General HYSTERECTOMY partial MM US BREAST BIOPSY RIGHT Right 05/17/2024 MM US BREAST BIOPSY RIGHT 05/17/2024 Mary Jo Busby MD [facility] US GUIDED NEEDLE PLACEMENT Right 03/22/2025 12:00-1:00 o'clock Family History Problem Relation Age of Onset Diabetes Mother Kidney Disease Mother Cancer Father Stroke Maternal Uncle Breast Cancer Paternal Aunt Heart Disease Maternal Grandmother Anesth Problems Neg Hx Social History Tobacco Use Smoking status: Every Day Current packs/day: 1.00 Types: Cigarettes Smokeless tobacco: Never Substance Use Topics Alcohol use: No Alcohol/week: 0.0 oz Current Outpatient Medications Medication Sig Dispense Refill amLODIPine (NORVASC) 2.5 mg Oral Tablet Take 10 mg by mouth. anastrozole (ARIMIDEX) 1 mg Oral Tablet TAKE ONE (1) TABLET BY MOUTH DAILY. 90 Tablet 3 aspirin 81 mg Oral Tablet, Chewable Take 81 mg by mouth daily. atorvastatin (LIPITOR) 40 mg Oral Tablet Take 40 mg by mouth daily. diazepam (VALIUM) 10 mg Oral Tablet Take 10 mg by mouth every 8 hours as needed. (Patient not taking: Reported on 12/06/2024) FLUoxetine (PROZAC) 20 mg Oral Capsule Take 20 mg by mouth daily. HUMULIN 70/30 U-100 KWIKPEN 100 unit/mL (70-30) SubQ Insulin Pen Inject 10 Units under the skin 2 times daily (with meals). hydroCHLOROthiazide 25 mg Oral Tablet Take 25 mg by mouth daily. ibuprofen (ADVIL;MOTRIN) 100 mg Oral Tablet Take 100 mg by mouth every 6 hours as needed for Fever. lisinopriL (PRINIVIL;ZESTRIL) 40 mg Oral Tablet Take 40 mg by mouth daily. metFORMIN (GLUCOPHAGE) 500 mg Oral Tablet Take 500 mg by mouth 2 times daily. metoprolol succinate (TOPROL-XL) 25 mg Oral Tablet Sustained Release 24 hr Take by mouth once. (Patient not taking: Reported on 12/21/2024) oxyCODONE-acetaminophen (PERCOCET) 5-325 mg Oral Tablet Take 1-2 Tabs by mouth every 4 hours as needed for Pain. (Patient not taking: Reported on 12/21/2024) 40 Tab 0 No current facility-administered medications for this encounter. Allergies Allergen Reactions Codeine Rash Penicillins Rash Predicort-50 [Prednisolone Acetate] Rash Review of Systems Constitutional: Positive for activity change. Negative for appetite change, chills, fever and unexpected weight change. HENT: Negative for trouble swallowing. Respiratory: Negative for shortness of breath. Skin: Positive for color change. Objective: Vitals: 04/04/25 1036 BP: 129/75 Pulse: 90 Temp: 97.3 ??F (36.3 ??C) Weight: 176 lb 1.6 oz (79.9 kg) Height: 5' 7 (1.702 m) Body mass index is 27.58 kg/m??. Physical Exam Vitals and nursing note reviewed. Exam conducted with a unix developer present. Constitutional: Appearance: Normal appearance. HENT: Head: Normocephalic and atraumatic. Cardiovascular: Rate and Rhythm: Normal rate. Pulmonary: Effort: Pulmonary effort is normal. Chest: Breasts: Right: Skin change (S/p 03/22/25 Right breast mammogram guided segmentectomy, sentinel lymph node dissection -healing well) present. Abdominal: General: Abdomen is flat. There is no distension. Palpations: Abdomen is soft. Tenderness: There is no abdominal tenderness. Neurological: Mental Status: She is alert. Psychiatric: Mood and Affect: Mood normal. Behavior: Behavior normal. Thought Content: Thought content normal. Judgment: Judgment normal. Received: 03/22/2025 3053 Pathologist: Poornima Hernandez MD Specimens: A) - Axilla, Right, BLUE NODE RIGHT AXILLA B) - Breast, Right, RIGHT BREAST SEGMENT FINAL DIAGNOSIS A. SENTINEL LYMPH NODE, RIGHT [...] - Biopsy site changes. - See comment. Surgical follow up Discussed right breast pathology margins and nodes clean On exam she is healing well Advised to stretch her right arm Discussed breast radiation is recommended in about one month -referral placed Discussed 2 cm cyst on chest excision prior to radiation -All risks of procedure were discussed in length with patient. Patient has a clear understanding. Advised to continue Arimidex until radiation . She will resume taking when radiation is complete Radiation referral placed Dexa scan to be done every 2 years Surgery to be scheduled Excision right breast cyst Return Post Op Note written by SUNIL Echavarria, acting as scribe for Dani Miranda MD. Prior to Arrival Reviewed Pathology, Imaging, Medications and Surgical Note Assessment & Plan Postop check Invasive ductal carcinoma of breast, right (HCC) Orders: AMB REFERRAL TO RADIATION ONCOLOGY ???I have reviewed this note and it accurately reflects my work and decisions made during this visit.?? Aguila Miranda MD * Bernadine Brian RN - 04/04/2025 10:20 AM EDT Patient presents to breast center for surgical follow up. Patient had surgery on 03/22/25 History of Right IDC.. Taking neoadj Arimidex. Last DEXA 10/28/24- low Patient rates pain 2 /10. No signs of infection at the surgical site. Patient has a right breast cyst that is growing. Dr. Miranda was aware of this. P: Knowledge Deficit r/t future health and continued healing. G: Educate patient I: Dr. Miranda examined patient. Incision well-approximated and healing appropriately or noted something. Pathologic staging reviewed with patient and available on Surgical Pathology Synoptic report.-copy provided per paper/my chart Discussed radiation-referral sent Taking endocrine therapy Arimidex Discussed removing the chest/breast cyst int the next couple of weeks prior to starting radiation. Encouraged to continue with monthly self breast exam when able to tolerate and report any abnormal finding. Discussed importance of annual diagnostics mammograms. Reviewed self breast exam instructions.. Verbal and written instructions provided. Patient stated understanding. Encouragement and emotional support provided. Next: Radiation consult sent - they will call her to schedule Dr. Miranda to remove the skin cyst prior to starting radiation. aKthy to schedule and call patient. Return post op. If for some reason she does not need to return post cyst removal, will need to verify her follow up with the breast center. Should need a 6 month SVS appt. N to follow and patient will call to let us know documented in this encounter Miscellaneous Notes * Patient Instructions - Bernadine Brian RN - 04/04/2025 10:20 AM EDT Breast Health Nurse phone number [phone] Please remember the nurse checks voice mail messages throughout the day. However, if the Nurse taking care of the phone messages is with a patient, she may not be available to return your call until later in the day. If you need immediate assistance or there is any emergency, please call your Doctors number or go to the Emergency Room. To schedule or change an appointment please contact our Hourly Associate at [phone]. Call Breast Health Nurse for questions/concerns. Return post op. We will discuss your next follow up at that appt Dr. Miranda recommends a Radiation consult, a referral has been placed, they will call you to schedule. Dr. Miranda recommends that you continue Arimidex/Anastrozole until you start radiation. They willtell you when to stop it prior to starting the treatments Perform monthly breast self exams, report abnormal findings-new lumps, bumps, nipple discharge. Bras and/or Prosthetics from our Boutique [facility] carries a large selection of breast prosthetics and bras for the convenience of our patients. Our caring an professional staff are also Certified Bra & Prosthetic Fitters. Please contact the [facility] at [phone] to schedule your Complimentary/FREE Bra Fitting. Patients who have a breast cancer diagnosis may qualify for insurance coverage for bras. Kathy will call you to schedule the cyst removal. Please call to schedule the post op visit. If you don't have to return for the cyst post op, please give us a call to get your follow up scheduled with Dr. Miranda. We will have you on our list to follow to make sure you have the correct follow upappt scheduled documented in this encounter Plan of Treatment Upcoming Encounters Date Type Department Care Team (Late st Contact Info) Description 05/16/2025 11:00 AM EDT Appointment [facility] [place] [address] Michael Wallace MD [address] [place] [address] [place] [address] 10/27/2025 12:30 PM EST Appointment [facility] [place] [address] Aguila Miranda MD [address] [place] [address] [address] [place] [address] 10/27/2025 1:00 PM EST Appointment [facility] [place] [address] Samantha Paredes PA-C [address] [place] [address] [place] [address] Scheduled Referrals Name Type Priority Associated Diagnoses Orde r Schedule AMB REFERRAL TO RADIATION ONCOLOGY Outpatient Referral Routine Invasive ductal carcinoma of breast, right (HCC) Ordered: 04/04/2025 documented as of this encounter Goals Goal Patient Goal Type Associated Problems Recent Progress Patient-Stated? Author Breast [facility] On track( 025 12:16 PM EDT) No Olivia Moya, RN Note: Patient acknowledges understanding of new diagnosis, plan of care, available resources and how to contact Nurse Navigator with any future questions or concerns. Breast [facility] On track( 025 11:12 AM EDT) No Dianna Issa, NAM Note: Patient will be compliant with taking Aromatase Inhibitor daily and understands who to contact to discuss any side effects or complications. documented as of this encounter Visit Diagnoses Diagnosis Invasive ductal carcinoma of breast, right (HCC)- Primary Postop check Follow-up examination, following unspecified surgery documented in this encounter Care Teams Rigging And Controls Aircraft Mechanic Relationship Specialty Start Date End Date Terrell Faust MD [address] [place] [phone] PCP - General Family Medicine 05/23/14 Adam Dolan MD [address] [place] [id number] Physician Internal Medicine-Cardiovascular Disease 11/18/14 Jane Kelsey MSW [employer] Principal Solution Specialist 06/03/24 documented as of this encounter
--- OUTSIDE RECORDS SUMMARY | 2025-04-11 09:03 | XMS_ITS | Encounter Summary ---
Author Organization [place] [address] Care Team Providers Care Strategic Communications Manager Name Role Phone Christianne Bean MD, Aaliyah Primary Care Provider + Adam Dolan MD Unavailable [phone] Jane Kelsey Unavailable [phone] Reason for Referral * MRI/CAT Scan (Routine) - Authorization Not Needed Specialty Diagnoses / Procedures Referred By Contac t Referred To Contact Radiology Diagnoses Invasive ductal carcinoma of breast, right (HCC) Procedures CT CHEST RADIATION THERAPY PLANNING WO CONTRAST Michael Wallace MD [address] [place] [address] Phone: tel: fax: [facility] [place] [address] Phone: tel: fax: Referral ID Status Reason Start Date Expiration Date Visits Requested Visits Authorized [id number] Authorization Not Needed 04/11/2025 04/11/2026 1 1 Reason for Visit * Reason Comments Consult Breast cancer * Consultation (Routine) - Pending Review Specialty Diagnoses / Procedures Referred By Contac t Referred To Contact Diagnoses Invasive ductal carcinoma of breast, right (HCC) Procedures ME OFFICE/OUTPATIENT NEW MODERATE MDM 45 MINUTES Aguila Miranda MD [address] [place] [address] Phone: tel: fax: Referral ID Status Reason Start Date Expiration Date V isits Requested Visits Authorized [id number] Pending Review 04/04/2025 04/04/2026 1 1 Encounter Details Date Type Department Care Team (Latest Contact Info) Description 04/11/2025 9:03 AM EDT - 04/11/2025 11:59 PM EDT Hospital Encounter [facility] [place] [address] Michael Wallace MD [address] [place] [address] [place] [address] Invasive ductal carcinoma of breast, right (HCC) (Primary Dx) Discharge Disposition: Home or Self Care Social History Tobacco Use Types Packs/Day Years Used Date Smoking Tobacco: Every Day Cigarettes 1 55.6 Started: 1971 Smokeless Tobacco: Never Tobacco Cessation:Ready to Q uit: Not Asked; Counseling Given: Not Answered Alcohol Use Standard Drinks/Week Comments No 0 [...] Sign Reading Time Taken Comments Blood Pressure 122/70 04/11/2025 9:38 AM EDT Pulse 80 04/11/2025 9:38 AM EDT Temperature 36.5 C (97.7 F) 04/11/2025 9:38 AM EDT Respiratory Rate 16 04/11/2025 9:38 AM EDT Oxygen Saturation 95% 04/11/2025 9:38 AM EDT Inhaled Oxygen Concentration - - Weight 81 kg (178 lb 8 oz) 04/11/2025 9:38 AM ED T Height 170.2 cm (5' 7 ) 04/11/2025 9:38 AM EDT Body Mass Index 27.96 04/11/2025 9:38 AM EDT documented in this encounter Medications at Time of Discharge acetaminophen (TYLENOL) 500 mg Oral Tablet Take by mouth every 4 hours as needed for Pain. anastrozole (ARIMIDEX) 1 mg Oral TabletIndications :Invasive [...] documented in this encounter Progress Notes * Michael Wlalace MD - 04/11/2025 11:59 PM EDT DATE OF SERVICE: 04/11/2025 RADIATION ONCOLOGY CONSULT NOTE TREATMENT FACILITY: [facility] Dear Dr. Miranda: Thank you for requesting my services in consultation for Lindsey Dougherty. She is a pleasant 64-year-old female who was diagnosed last year with a clinical T3 N0, stage 2A invasive ductal carcinoma of the right breast. She had neoadjuvant treatment with Arimidex and had recent right breast segmentectomy and axillary excision. Lindsey mentions that, preceding her diagnosis, she had noticed some changes on the surface of herbreast in late 2022. This did not seem to be a discrete mass and, ultimately, she was followed for some time. She did have outside institution mammograms, but I do not have the full reports for that. Ultimately, by the summer of 2023, this area became larger and more concerning and mammogram was ordered again. On 05/07/2024, she had a mammogram that was concerning for heterogenous calcifications spanning at least 4 cm of the upper inner quadrant of the right breast. There were some areas of architectural distortion, and ultrasound on the same day showed a subtle hypoechoic mass with shadowing. No axillary lymphadenopathy was noted. There was some discussion of slightly erythematous skin in the upper inner quadrant. This led to a biopsy on 05/17/2024, which confirmed grade 2 invasive ductal carcinoma with mucinousfeatures with invasive carcinoma measuring at least 13 mm in length, involving 5 cores. There was no lymph-vascular invasion. The tumor was 95% ER-positive, 94% ME-positive, and HER-2/rubi negative. Oncotype score was 9. Given her disease characteristics, she initiated Arimidex. On subsequent examinations, the lesion of concern continued to show response. Ultimately, on 03/22/2025, she had right breast segmentectomy with needle localization and excisional biopsy of the sentinel lymph nodes. This confirmed multifocal grade 2 residual invasive ductal carcinoma with mucinous features with most areas ranging from 0.1 mm to 3 mm. These areas of invasive carcinoma spanned approximately 6 cm with low cellularity. There was evidence of grade 2 DCIS spanning 2.4 cm. Margins of resection were close but negative. As such, this is multifocal esA6wN3, ER/ME-positive disease. Lindsey is recovering well postoperatively. She had a separate unrelated cyst in her right breast and excision of this is planned for later this week. She wishes to discuss adjuvant radiotherapeuticoptions. Please review today's accompanying Epic note for pertinent details of the history, physical exam and review of systems. PATHOLOGY AND IMAGING: As detailed in HPI. I have reviewed recent scans personally. PRIOR RADIATION HISTORY: None. IMPRESSION AND PLAN: Lindsey Dougherty is a pleasant 64-year-old female who was diagnosed last year witha clinical T3 N0, stage 2A invasive ductal carcinoma of the right breast. She had neoadjuvant Arimidex and had segmentectomy last month. Her final pathologic stage is multifocal, [id number], ER/ME-positive, grade 2 invasive ductal carcinoma. She is recovering well postoperatively, but does have a cyst excision scheduled for later this week. This is unrelated to her cancer diagnosis, but it is in the same region of the right upper inner quadrant of the breast. Today, we have reviewed the indications, risks, benefits, and side-effects of external beam radiotherapy and its use in the management of patients with early stage breast cancer. We discussed acute and late side effects of treatment, including skin irritation, erythema, radiation fibrosis, breast tenderness and damage to other surrounding structures. Overall, I anticipate that she would tolerate treatment well. We reviewed various fractionation regimens, including partial breast delivered over the course of 5fractions, 2-week, 4-week and 6-week regimens. We will likely pursue ultra hypofractionated treatment over the course of 2 weeks. Lindsey lives some distance away and this will also be more convenient for her. We then reviewed need for CT simulation and the logistics of treatment. Lindsey will return to clinic once her surgical incisions have healed and we will proceed with simulation at that time. Sincerely, Reviewed in full by rose/NEIDA, 04/12/2025 Michael Wallace M.D. By: Daniel Job ID: [id number] Doc ID: [id number] CC: AGUILA MIRANDA MD([employer]) AALIYAH FAUST MD([employer]) * Michael Wallace MD - 04/11/2025 9:30 AM EDT RADIATION ONCOLOGY NEW PATIENT VISIT 04/11/2025 Chief Complaint Patient presents with Consult Breast cancer DIAGNOSIS: Cancer Staging Oncology History Invasive ductal carcinoma of breast, right (HCC) 05/19/2024 Initial Diagnosis Invasive ductal carcinoma of right breast ER 95% PgR 94% HER2 Negative 06/03/2024 - Consult Initial consult with breast surgeon-Dr. Mathew Miranda 06/03/2024 - Endocrine Therapy Begin Arimidex, daily, per Dr. Miranda to shrink tumor. 06/04/2024 - Oncotype Oncotype score is 9; no benefit to chemotherapy. Genetics [facility] CancerNext (34 genes) germline panel: NEGATIVE. 03/22/2025 Surgery A. SENTINEL LYMPH NODE, RIGHT AXILLA, EXCISIONAL BIOPSY: - Eight lymph nodes, negative for metastatic carcinoma (0/8). - Negative for fibrosis suggestive of tumor regression. B. BREAST, RIGHT SEGMENTECTOMY: - Residual invasive ductal carcinoma with [...] invasive carcinoma but are very close. - Margins are negative for DCIS.. - Negative for lymphovascular invasion. Radiation Tx Stage Stage 2 HISTORY OF PRESENT ILLNESS: Lindsey Dougherty is a 64 y.o. female Please see dictated note. PAST HISTORY: Past Medical History: Diagnosis Date Anemia Cancer (HCC) breast rt Depression Heart murmur Hyperlipidemia Hypertension Postoperative nausea and vomiting Stroke (HCC) 2017 Patient Active Problem List Diagnosis Date Noted Cyst (solitary) of breast, right 04/05/2025 Invasive ductal carcinoma of breast, right (HCC) [...] node dissection; Surgeon: Aguila Miranda MD; Location: [facility]; Service: General FRACTURE SURGERY upper [...] Smoking status: Every Day Current packs/day: 1.00 Average packs/day: 1 pack/day for 55.5 years (55.5 ttl pk-yrs) Types: Cigarettes Start date: 1969 Smokeless tobacco: Never Substance Use Topics Alcohol use: No Alcohol/week: 0.0 oz Current Outpatient Medications Medication Sig Dispense Refill acetaminophen (TYLENOL) 500 mg Oral Tablet Take by mouth every 4 hours as needed for Pain. anastrozole (ARIMIDEX) 1 mg Oral Tablet TAKE [...] the skin 2 times daily (with meals). metFORMIN (GLUCOPHAGE) 500 mg Oral Tablet Take 500 mg by mouth 2 times daily. amLODIPine (NORVASC) 2.5 mg Oral Tablet Take 10 mg by mouth. (Patient not taking: Reported on 04/11/2025) diazepam (VALIUM) 10 mg Oral Tablet Take 10 mg by mouth every 8 hours as needed. (Patient not taking: Reported on 12/06/2024) hydroCHLOROthiazide 25 mg Oral Tablet Take 25 mg by mouth daily. (Patient not taking: Reported on 04/11/2025) ibuprofen (ADVIL;MOTRIN) 100 mg Oral Tablet Take 100 mg by mouth every 6 hours as needed for Fever.(Patient not taking: Reported on 04/11/2025) lisinopriL (PRINIVIL;ZESTRIL) 40 mg Oral Tablet Take 40 mg by mouth daily. (Patient not taking: Reported on 04/11/2025) metoprolol succinate (TOPROL-XL) 25 mg Oral Tablet Sustained Release 24 hr Take by mouth once. (Patient not taking: Reported on 04/11/2025) oxyCODONE-acetaminophen (PERCOCET) 5-325 mg Oral Tablet Take 1-2 Tabs by mouth every 4 hours as needed for Pain. (Patient not taking: Reported on 04/11/2025) 40 Tab 0 No current facility-administered medications for this encounter. Allergies Allergen Reactions Codeine Rash Penicillins Rash Predicort-50 [Prednisolone Acetate] Rash Radiation History: no ADDITIONAL RADIATION ISSUES ISSUES ADDRESSED: Child Bearing Status Addressed: Yes, no additional tests needed. Nutritional Needs Addressed: Yes, no needs at this time. REVIEW OF SYSTEMS: Review of Systems Constitutional: Positive for fatigue. Negative for appetite change, chills, fever and unexpected weight change. HENT: Negative. Eyes: Positive for visual disturbance (wear glasses at times). Respiratory: Positive for cough (productive cough not new) and shortness of breath (during exertionnot new). Negative for chest tightness and wheezing. Cardiovascular: Negative for chest pain and palpitations. 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 Endocrine: Negative for heat intolerance. Genitourinary: Negative for difficulty urinating, dysuria, frequency, hematuria, urgency, vaginal bleeding, vaginal discharge and vaginal pain. Musculoskeletal: Positive for arthralgias, back pain and myalgias. Negative for joint swelling, neck pain and neck stiffness. Generalized aches and pains Skin: Positive for color change (L nostril open area skin healing per patient will be following network operations lead). Allergic/Immunologic: Positive for environmental allergies. Neurological: Positive for numbness (due to carpal tunnel at times bilateral hands). Negative for dizziness, light-headedness and headaches. Hematological: Negative. Psychiatric/Behavioral: Negative for sleep disturbance. The patient is not nervous/anxious. PHYSICAL EXAM: BP 122/70 (BP Location: Left arm, Patient Position: Sitting) Pulse 80 Temp 97.7 ??F (36.5 ??C) (Forehead) Resp 16 Ht 5' 7 (1.702 m) Wt 178 lb 8 oz (81 kg) SpO2 95% BMI 27.96 kg/m?? ECOG: (0) Fully active, able to carry on all predisease performance without restriction Physical Exam PHYSICAL EXAM: VITALS: Vitals: 04/11/25 0938 BP: 122/70 Pulse: 80 Resp: 16 Temp: 97.7 ??F (36.5 ??C) SpO2: 95% GENERAL: Patient is a well-developed, well-nourished female in no acute distress, alert and oriented x3, appropriate and pleasant conversation. HEAD: Normocephalic, atraumatic. EYES: Pupils equal, round and reactive to light and accommodation, extraocular movements intact. ENT: Moist mucous membranes. No erythema is noted. NECK: Supple. No masses. No lymphadenopathy. CARDIOVASCULAR: Regular rate and rhythm. PULMONARY: Lungs are clear to auscultation bilaterally. ABDOMEN: Soft, nontender, nondistended. Positive bowel sounds. MUSCULOSKELETAL: Strength 5/5 bilaterally in all extremities. No tenderness to palpation of the ribs, long bones, or spine. NEUROLOGIC: Cranial nerves II through XII grossly intact. No focal deficits are noted. BREAST: surgical incision healing well, but seroma noted, pendulous breast LABS: Labs personally reviewed. IMAGING: Images personally reviewed. ASSESSMENT/PLAN: The plan of care for pain includes the following Interventions: Patient and/or family education Lindsey was seen today for consult. Diagnoses and all orders for this visit: Invasive ductal carcinoma of breast, right (HCC) - CT CHEST RADIATION THERAPY PLANNING WO CONTRAST; Future Please see dictated note. Michael Wallace MD * Tawnya Nails RN - 04/11/2025 9:30 AM EDT Patient was seen today by Dr. Wallace in consult for Breast Cancer . Recommended treatment with External Beam radiation therapy. CT Simulation to be done/scheduled without contrast. NPO is not required. Test does not need to be done prior. Treatment to be done without breath hold Patient will not be treated concurrent with chemotherapy Patient elects for treatment at the [facility] location. Provided patient with new patient folder and reviewed contents inside folder. Including radiation side effects,educational handouts specific to patient's diagnosis, and Cancer Care handout listing resources. Time spent with patient educating on appropriate skin care regimen. (samples and coupons provided). Reviewed treatment plan with patient. Reviewed requirement 48-72 hours for medication refill requests. Patient was able to verbalize understanding and repeat teaching. Reviewed phone number to call [phone] Option 1 with any questions and/or concerns. Distress tool worksheet was completed RN has documented yes in flowsheet for reviewed. Nutrition Screen was completed and submitted for review. Nutrition Referral was not ordered per protocol. HIPAA form updated. [place] Suicide Severity Screening was not completed this day ACP/Shared Decision Making has been addressed/discussed. Teach and consent were this visit. Integrative Consult does not need Social Work Consult does not need Nurse Navigation referral does not need Patient is scheduled for Cyst removal above right breast on 04/15/2025. To be completed prior to start of radiation. documented in this encounter Plan of Treatment Upcoming Encounters Date Type Department Care Team (Late st Contact Info) Description 05/16/2025 11:00 AM EDT Appointment [facility] [place] [address] Michael Wallace MD [address] [place] [address] [place] [address] 10/27/2025 12:30 PM EST Appointment [facility] [place] [id number] Aguila Miranda MD [address] [place] [address] DR SWIFT [address] [place] [address] 10/27/2025 1:00 PM EST Appointment [facility] [place] [id number] Samantha Paredes PA-C [address] [place] [address] DR SWIFT [address] [place] [id number] documented as of this encounter Goals Goal [...] or complications. documented as of this encounter Results * CT CHEST RADIATION THERAPY PLANNING WO CONTRAST (05/03/2025 9:17 AM EDT) Anatomical Region Laterality Modality Chest Computed Tomogra phy 05/03/2025 9:17 AM EDT Impressions 05/03/2025 9:57 AM EDT Satisfactory-appearing noncontrast chest CT for treatment planning purposes. - Note: Radiology results need to be interpreted within a comprehensive clinical context. If you have questions about the radiology report, please contact the office of the ordering clinician. Narrative 05/03/2025 9:[address] CHEST FOR XRT PLANNING, 05/03/2025 9:17 AM CLINICAL HISTORY: C50.911-Malignant neoplasm of unspecified site of right female breast (HCC)-ICD-10-CM. COMPARISON: No comparison chest CT imaging studies. PROCEDURE COMMENTS: Multi detector CT scanning of the region of interest per radiation therapy protocol. No multiplanar reconstructions were performed. Dose 1 : CT DLP Total : 320 mGycm DLP Spiral Max : 319 mGycm Maximum CTDI Vol : 8.12 mGy FINDINGS: Markers were placed. Examination appears technically adequate with satisfactory field of view and coverage range. Mild diffuse global cardiac enlargement. Tortuous thoracic aorta. Trace amount of pericardial fluid. Symmetric hilar structures. Postlumpectomy changes of the upper/medial right breast. Prior right axillary wade dissection. The lungs are clear. No pleural effusions. No dominant lung mass/suspicious nodule. Small retrocardiac hiatal hernia. No visualized bony metastatic process. Procedure Note Yaniv Sawyer DO - 05/03/2025 CT CHEST FOR XRT PLANNING, 05/03/2025 9:17 AM CLINICAL HISTORY: C50.911-Malignant neoplasm of unspecified site ofright female breast (HCC)-ICD-10-CM. COMPARISON: No comparison chest CT imaging studies. PROCEDURE COMMENTS: Multi detector CT scanning of the region of interestper radiation therapy protocol. No multiplanar reconstructions wereperformed. Dose 1 : CT DLP Total : 320 mGycm DLP Spiral Max : 319 mGycm Maximum CTDI Vol : 8.12 mGy FINDINGS: Markers were placed. Examination appears technically adequatewith satisfactory field of view and coverage range. Mild diffuse global cardiac enlargement. Tortuous thoracic aorta. Traceamount of pericardial fluid. Symmetric hilar structures. Postlumpectomy changes of the upper/medial right breast. Prior rightaxillary wade dissection. The lungs are clear. No pleural effusions. No dominantlung mass/suspicious nodule. Small retrocardiac hiatal hernia. No visualizedbony metastatic process. IMPRESSION: Satisfactory-appearing noncontrast chest CT for treatment planning purposes. - Note: Radiology results need to be interpreted within a comprehensiveclinical context. If you have questions about the radiology report, please contactthe office of the ordering clinician. Michael Wallace MD IMG CT ORDERABLES Final Result documented in this encounter Visit Diagnoses Diagnosis Invasive ductal carcinoma of breast, right (HCC)- Primary Invasive ductal carcinoma of breast, right (HCC) documented in this encounter Care Teams Strategic Communications Manager Relationship Specialty Start Date End Date Aaliyah Faust MD [address] [place] [id number] PCP - General Family Medicine 05/23/14 Adam Dolan MD [address] [place] [id number] Physician Internal Medicine-Cardiovascular Disease 11/18/14 Jane Kelsey MSW [facility] Sander 06/03/24 documented as of this encounter
--- OUTSIDE RECORDS SUMMARY | 2025-04-15 13:22 | XMS_ITS | Encounter Summary ---
Author Organization [place] [address] Care Team Providers Care Telephone Answerer Name Role Phone Christianne Bean MD, Terrell Primary Care Provider + Adam Dolan MD Unavailable [phone] Jane Kelsey WIND INSTRUMENT REPAIRER Unavailable [phone] Reason for Visit * Auth/Cert/Inpt Specialty Diagnoses / Procedures Referred By Contac t Referred To Contact Diagnoses Cyst (solitary) of breast, right Cyst (solitary) of breast, right [N60.01] Procedures MO EXC B9 LESION MRGN XCP SK TG T/A/L 2.1-3.0 CM MO EXC CYST/ABERRANT BREAST TISSUE OPEN 1/> LESION Excison right breast cyst Referral ID Status Reason Start Date Expiration Date Visits Re quested Visits Authorized [id number] 1 1 Encounter Details Date Type Department Care Team (Latest Contact Info) Description 04/15/2025 1:22 PM EDT - 04/15/2025 3:31 PM EDT Hospital Encounter [facility] [address] [place] [address] Aguila Miranda MD [address] [place] [address] Cyst (solitary) of breast, right Discharge Disposition: Home or Self Care Social History Tobacco Use Types Packs/Day Years Used Date Smoking Tobacco: Every Day Cigarettes 1 55.6 Started: 1970 Smokeless Tobacco: Never Alcohol Use Standard Drinks/Week [...] Sign Reading Time Taken Comments Blood Pressure 126/71 04/15/2025 3:06 PM EDT Pulse 88 04/15/2025 3:06 PM EDT Temperature 36.2 C (97.1 F) 04/15/2025 3:06 PM EDT Respiratory Rate 16 04/15/2025 3:06 PM EDT Oxygen Saturation 96% 04/15/2025 3:06 PM EDT Inhaled Oxygen Concentration - - Weight 79.9 kg (176 lb 3.2 oz) 04/15/2025 1:37 P M EDT Height 170.2 cm (5' 7 ) 04/15/2025 1:37 PM EDT Body Mass Index 27.6 04/15/2025 1:37 PM EDT documented in this encounter Discharge Instructions * Discharge Instructions* Aguila Miranda MD - 04/15/2025 3:01 PM EDT OPERATIVE SITE INSTRUCTIONS: If Skin glue is [...] up appointment and your results call the [facility] at [phone], 3 days post procedure for an appointment within 7-10 days from your surgery. If you are not a patient of [facility], call [phone]. Notify Dr. Miranda at [phone] for problems such as : Check your temperature for 5 days call for Fever over 101 degrees Unrelieved nausea or pain Inability to urinate Rash, hives or difficulty breathing Blood soaked dressing (Some oozing may be normal) Numb, pale, blue, cold or tingling extremity Go to the Emergency Room, if your doctor is not available documented in this encounter Medications at Time [...] Means Destination Comment s Home or Self Correction documented in this encounter Progress Notes * Christiana Schuler RN - 04/15/2025 3:29 PM EDT Discharge instructions reviewed with patient and , Sharath, verbalized understanding and encouraged questions. D/c instructions sent home with patient in folder. documented in this encounter Procedure Notes * Aguila Miranda MD - 04/15/2025 3:31 PM EDT DATE OF OPERATION: 04/15/2025 PREOPERATIVE DIAGNOSIS: Skin cysts, right breast x2. POSTOPERATIVE DIAGNOSIS: Skin cysts, right breast x2. PROCEDURE: Excision of right breast skin cysts. SURGEON: Aguila Miranda MD. DATABASE SUPPORT: None. ANESTHESIA: Local with sedation. INDICATIONS: Ms. Dougherty is a 64-year-old woman with breast cancer, which has completed breast conservation. She had 2 growing and reddening cysts of the chest, which were going to be in the radiation field. I recommended these be removed prior to them getting infected. The risks, benefits and alternatives were explained to her in detail, and she understood and wished to proceed. PROCEDURE DETAILS: After informed consent had been obtained, the patient was taken to the OperatingRoom, where she was placed, prepped and draped in the usual sterile fashion. The larger of the 2 lesions, which was approximately 2 cm in size, was incorporated into a narrow ellipse and injected with local anesthetic and a full-thickness excision of the lesion, including thesac, was performed and this was sent for permanent section. The wound was carefully dried. Hemostasis was completed. The wound was closed with 3-0 and 4-0 Vicryl and sealed with skin glue. The second lesion, which was approximately 1 cm in size, was also incorporated into a skin ellipse. This too was injected with local anesthetic and a full-thickness excision was performed. This too was sent for permanent section. The wound was carefully dried and closedwith 3-0 and 4-0 Vicryl and sealed with skin glue. All needle, sponge and instrument counts were reported as correct by the nursing staff. The patient tolerated the procedure well and was taken to the recovery area awake and alert. Reviewed in full by rose/NEIDA, 04/22/2025 Aguila Miranda M.D. By: Daniel Job ID: [id number] Doc ID: [id number] * Aguila Miranda MD - 04/15/2025 2:58 PM EDT [facility] OPERATIVE/PROCEDURE NOTE Lindsey Dougherty I April 15, 2025 Body mass index is 27.6 kg/m??. PRE-OP DIAGNOSIS: Cyst (solitary) of breast, right [N60.01] POST-OP DIAGNOSIS: Cyst (solitary) of breast, right [N60.01] 2 PROCEDURE(S): Procedure(s): Excison right breast cyst x2 SURGEON(S): Surgeons and Role: * Aguila Miranda MD - Primary DATABASE SUPPORT(S): ANESTHESIA: Local (Nurse-Monitored) SPECIMENS: ID Type Source Tests Collected by Time Destination 1 : Right chest cysts Tissue Chest, Right [place] [id number] ESTIMATED BLOOD LOSS (mls): 1ml *EBL MUST be documented as a numeric value FINDINGS: 2.5 cm, 1 cm cysts OTHER INFO: DISPOSITION/POST PROC COURSE: pacu Aguila Miranda MD Date: 04/15/2025 documented in this encounter Nursing Notes * Etelvina Walker, RN - 04/05/2025 2:47 PM EDT Images from the original note were not included. PREPARING FOR YOUR LOCAL ANESTHESIA SURGERY Date of Surgery: 04/15 Arrival time: Your surgeon may have already provided this, check your paperwork from the office. Ifnot received, call your surgeon's office. Location: [facility] Medications on the Day of Surgery Take morning medications as usual . Medications to Hold Prior to Surgery Verify with your doctor for possibly discontinuing the following medications: blood thinners, aspirin, or anti-inflammatories. Stop taking all supplements 7 days prior to your surgery. Food, Drinks, Tobacco You may drink and eat a light meal prior to arrival for surgery. Do not smoke, vape, or use any type of tobacco or marijuana products within 24 hours prior to surgery. Smoking will also slow your rate of healing. It is advised that you do not smoke during the healing process. No alcohol 24 hours prior to surgery. Visiting We also recommend that no children be present on the day of surgery. If you have a concern, please reach out to our department [phone]. Hygiene [place] your teeth and gargle the morning of surgery. Shower the morning of surgery or the night before. Do not wear makeup (including eye makeup) lotion, powder, deodorant, perfume, or cologne. Do not shave the operative extremity or near the operative area. Remove nail new zealander prior to surgery. This includes artificial nails and gel nail new zealander Personal Items Wear clean, simple, loose-fitting clothing (no jeans) and sturdy shoes (no flip flops, slides or crocs) on the day of surgery. Do not bring unnecessary valuables with you. It is policy that [facility] does not assume responsibility for lost, stolen or broken personal items that are brought in. Exceptions may be consideredfor items which are considered necessary for your healthcare. These items will be formally documented. Remove all jewelry prior to surgery to prevent injury. We will not tape wedding rings/bands.. Bring with You Bring a copy of your Living Will and/or Durable Power of Chick Grader for Healthcare. Notify the Surgeon Notify your surgeon if you develop any illness (fever, cold, cough, sore throat, nausea, vomiting, skin rashes etc.) between now and surgery time. Notify your surgeon and Pre-admission testing ([phone]) if you have any changes in your healthconditions or if any new medications are ordered between now and surgery. Questions or Concerns? If you have any questions or concerns, feel free to call the Pre-Admission testing department at [phone]. We want to make sure you feel safe and have an excellent experience while you are here. Do not reply to this message through School Admissions as it may not be answered promptly. Surgery Center [facility] at [phone] - [address] [place] [address]. DOORS OPEN AT 6:30 AM Surgical Site Infections FAQs What is a [...] Enriqueta (GUALLPA); InfectiousDiseases Society of Enriqueta (IDSA); [facility]; Association for Professionals inInfection Control [...] EDT Appointment [facility] [address] Michael Wallace MD [address] [place] [address] [place] [address] 10/27/2025 12:30 PM EST Appointment [place] [facility] [address] [place] [address] Aguila Miranda MD [address] [place] [address] 10/27/2025 1:00 PM EST Appointment [facility] [address] [place] [address] Samantha Paredes PA-C [address] [place] [address] DR SWIFT [address] [place] [address] documented as of this encounter Goals Goal Patient Goal Type Associated Problems Recent Progress Patient-Stated? Author Breast Health Breast Health On track( 025 12:16 PM EDT) Olivia Dugan RN Note: Patient acknowledges understanding of new diagnosis, plan of care, available resources and how to contact Nurse Navigator with any future questions or concerns. Breast Health Breast Health On track( 025 11:12 AM EDT) Dianna Mansfield RN Note: Patient will be compliant with taking Aromatase Inhibitor daily and understands who to contact to discuss any side effects or complications. documented as of this encounter Procedures Procedure Name Priority Date/Time Associated Diagnosis Comments PATHOLOGY TISSUE REQUEST Routine 04/15/2025 2:42 PM EDT Cyst (solitary) of breast, right MO EXC B9 LESION MRGN XCP SK TG T/A/L 2.1-3.0 CM 04/15/2025 2:31 PM EDT Cyst (solitary) of breast, right Special Needs Sk, LC 04/11 documented in this encounter Results * PATHOLOGY TISSUE REQUEST (04/15/2025 2:42 PM EDT) CASE REPORT Surgical Pathology Case: [id number] Authorizing Provider: Aguila Miranda MD Collected: 04/15/2025 1442 Ordering Location: [facility] Received: 04/15/2025 1649 Pathologist: Tamica Hercules MD Specimen: Chest, Right, Right chest cysts 04/19/2025 8:43 AM EDT [facility] FINAL DIAGNOSIS Right chest cysts, excision: - Epidermal cysts. 04/19/2025 8:43 AM EDT [facility] at 0843 EDT GROSS DESCRIPTION A. Breast time to formalin: 7 minutes Total time in formalin: 65 hours and 11 minutes Received labeled with patient's name, MRN, and right chest cyst are 2 unoriented portions of subcutaneous tissue partially surfaced with leach-white skin. The first tissue is 1.2 x 0.7 cm and is excised to depth of 0.9 cm. The specimen is inked black. The second tissue is 1.7 x 1.5 cm and is excised to a depth of 1.6 cm. The specimen is inked blue. On sectioning both specimens display a thin-walled cystic cavities containing white-leach tenacious material. The tissues are entirely submitted as follows: A1 = serially sectioned smaller tissue A2-A3 = serially sectioned larger tissue DAREN Garrett PA (ASCP) 04/19/2025 8:43 AM EDT [facility] MICROSCOPIC DESCRIPTION The microscopic examination may have been rendered in whole, or in part, by analyzing high-resolution digital images (whole slide images) on the [employer] Digital Pathology platform validated at [facility]. 04/19/2025 8:43 AM EDT [facility] EMBEDDED IMAGES 04/19/2025 8:43 AM EDT [facility] Tissue RIGHT THORAX STRUCTURE / Unknown 04/15/2025 2:42 PM EDT 04/15/2025 4:49 PM EDT us Aguila Miranda MD PATHOLOGY ORDERABLES Final Result [facility] [address] [place] [address] [facility] [address] [place] [address] documented in this encounter Visit Diagnoses Diagnosis Cyst (solitary) of breast, right- Primary Cyst (solitary) of breast, right documented in this encounter Admitting Diagnoses Diagnosis Cyst (solitary) of breast, right documented in this encounter Historical Medications * This list may reflect changes made after this encounter. acetaminophen (TYLENOL) 500 mg Oral Tablet Take by mouth every 4 hours as needed for Pain. added in this encounter Active and Recently Administered Medications Times are shown in EDT. Scheduled Medication Order 04/13/2025 04/14/2025 04/15/2025 ciprofloxacin in 5 % dextrose (CIPRO) IVPB 400 mg 400 mg, Intravenous, ONCE PREPROCEDURE, 1 dose, On Fri04/15/25 at 0645, Administer over 60 Minutes, Reason for Therapy: Surgical Prophylaxis, Pre-op (Antibiotic), Dx: 1. Cyst (solitary) of breast, right 0645 (Due) PRN Medication Order 04/13/2025 04/14/2025 04/15/2025 BUPivacaine-EPINEPHrine (MARCAINE/SENSORCAINE) 0.5 %-1:200,000 injection (CANCELED) INTRAPROCEDURE, Starting on Fri04/15/25 at 1450, Until Fri04/15/25 at 1531, Intra-op 1450 (Given - Provid er: Aguila Miranda MD) documented in this encounter Orders Medications Ordered That Misael ht Not Have Been Administered Count Last Ordered Date First Ordered Date BUPivacaine-EPINEPHrine (MARCAINE/SENSORCAINE) 0.5 %-1:200,000 injection 1 04/15/2025 ciprofloxacin in 5 % dextros e (CIPRO) IVPB 400 mg 1 04/14/2025 Discharge Count Last Ordered Date First Orde red Date DISCHARGE PATIENT 1 04/15/2025 documented in this encounter Care Teams Telephone Answerer Relationship Specialty Start Date End Date Terrell Faust MD [address] [place] [id number] PCP - General Family Medicine 05/23/14 Adam Dolan MD [address] [place] [address] Physician Internal Medicine-Cardiovascular Disease 11/18/14 Jane Kelsey, KYA Assembler Tubing 06/03/24 documented as of this encounter
--- OUTSIDE RECORDS SUMMARY | 2025-04-15 14:25 | XMS_ITS | Encounter Summary ---
Author Organization [place] [address] Care Team Providers Care Stained Glass Joiner Name Role Phone Christianne Bean MD, Terrell Primary Care Provider + Adam Dolan MD Unavailable [phone] Jane Kelsey COLD FOOD PACKER Unavailable [phone] Reason for Visit * Auth/Cert/Inpt Specialty Diagnoses / Procedures Referred By Contac t Referred To Contact Diagnoses Cyst (solitary) of breast, right Cyst (solitary) of breast, right [N60.01] Procedures MD EXC B9 LESION MRGN XCP SK TG T/A/L 2.1-3.0 CM MD EXC CYST/ABERRANT BREAST TISSUE OPEN 1/> LESION Excison right breast cyst Referral ID Status Reason Start Date Expiration Date Visits Re quested Visits Authorized [id number] 1 1 Encounter Details Date Type Department Care Team (Late st Contact Info) Description 04/15/2025 2:25 PM EDT - 04/15/2025 3:15 PM EDT Surgery [facility] [address] [place] [address] Aguila Miranda MD [address] [place] [address] BREAST BIOPSY Surgery Details Date/Time Status Location OR Service Patient Class Case Class Case Type Trauma Case? 04/15/2025 2:25 PM Posted [facility] OSC 07 General Same Day Surgery Semi-Urge nt - 2 Wks Panel 1 Procedure LRB Anes Op Region Wound Class Comments BREAST BIOPSY Right Local (Nurse-Monitored) Clean Excison right breast cyst x2 Surgeon Surgeon Role Service Panel Aguila Miranda MD Primary General 1 Special Needs Sk, LC 04/11 documented in this encounter Social History Tobacco Use Types Packs/Day Years Used Date Smoking Tobacco: Every Day Cigarettes 1 55.6 Started: 1970 Smokeless Tobacco: Never Alcohol Use Standard Drinks/Week [...] up appointment and your results call the [facility] at [phone], 3 days post procedure for an appointment within 7-10 days from your surgery. If you are not a patient of [facility], call [phone]. Notify Dr. Miranda at [phone] for problems such as : Check your [...] Means Destination Comment s Home or Self Fdc documented in this encounter Progress Notes * [...] breast skin cysts. SURGEON: Aguila Miranda MD. CURRICULUM FACILITATOR: None. ANESTHESIA: Local with sedation. INDICATIONS: Ms. [...] Aguila Miranda M.D. By: Daniel Job ID: [id number] Doc ID: [id number] * Aguila Miranda MD - 04/15/2025 2:58 PM EDT [facility] OPERATIVE/PROCEDURE NOTE Lindsey Dougherty Elaine April 15, 2025 Body mass index is 27.6 kg/m??. PRE-OP DIAGNOSIS: Cyst (solitary) of breast, right [N60.01] POST-OP DIAGNOSIS: Cyst (solitary) of breast, right [N60.01] 2 PROCEDURE(S): Procedure(s): Excison right breast cyst x2 SURGEON(S): Surgeons and Role: * Aguila Miranda MD - Primary CURRICULUM FACILITATOR(S): ANESTHESIA: Local (Nurse-Monitored) SPECIMENS: ID Type Source [...] in this encounter Nursing Notes * Etelvina Walker RN - 04/05/2025 2:47 PM EDT Images from the original note were not included. PREPARING FOR YOUR LOCAL ANESTHESIA SURGERY Date of Surgery: 04/15 Arrival time: Your surgeon may have already provided this, check your paperwork from the office. Ifnot received, call your surgeon's office. Location: [facility] Medications on the Day of Surgery Take [...] concern, please reach out to our department [phone]. Hygiene [place] your teeth and gargle the morning of surgery. Shower the morning of surgery or the night before. Do not wear makeup (including eye makeup) lotion, powder, deodorant, perfume, or cologne. Do not shave the operative extremity or near the operative area. Remove nail panamanian prior to surgery. This includes artificial nails and gel nail panamanian Personal Items Wear clean, simple, loose-fitting clothing (no jeans) and sturdy shoes (no flip flops, slides or crocs) on the day of surgery. Do not bring unnecessary valuables with you. It is policy that [facility] does not assume responsibility for lost, stolen or broken personal items that are brought in. Exceptions may be consideredfor items which are considered necessary for your healthcare. These items will be formally documented. Remove all jewelry prior to surgery to prevent injury. We will not tape wedding rings/bands.. Bring with You Bring a copy of your Living Will and/or Durable Power of Stitch Wheeler for Healthcare. Notify the Surgeon Notify your surgeon if you develop any illness (fever, cold, cough, sore throat, nausea, vomiting, skin rashes etc.) between now and surgery time. Notify your surgeon and Pre-admission testing ([phone]) if you have any changes in your healthconditions or if any new medications are ordered between now and surgery. Questions or Concerns? If you have any questions or concerns, feel free to call the Pre-Admission testing department at [phone]. We want to make sure you feel safe and have an excellent experience while you are here. Do not reply to this message through Outernet as it may not be answered promptly. Surgery Center [facility] at [phone] - [address] [place] [address]. DOORS OPEN AT 6:30 AM Surgical Site [...] Enriqueta (GUALLPA); InfectiousDiseases Society of Enriqueta (IDSA); [facility]; Association for Professionals inInfection Control [...] EDT Appointment [place] [address] Michael Wallace MD [address] [place] [address] [place] [address] 10/27/2025 12:30 PM EST Appointment [place] [facility] [place] [address] Aguila Miranda MD [address] [place] [address] DR SWIFT [address] [place] [address] 10/27/2025 1:00 PM EST Appointment [facility] [place] [address] Samantha Paredes PA-C [address] [place] [address] DR SWIFT [address] [place] [address] documented as of this encounter Goals Goal Patient Goal Type Associated Problems Recent Progress Patient-Stated? Author [facility] Breast Health On track( 025 12:16 PM EDT) No Olivia Moya RN Note: Patient acknowledges understanding of new diagnosis, plan of care, available resources and how to contact Nurse Navigator with any future questions or concerns. [facility] On track( 025 11:12 AM EDT) No Dianna Issa, RN Note: Patient will be compliant with taking Aromatase Inhibitor daily and understands who to contact to discuss any side effects or complications. documented as of this encounter Procedures Procedure Name Priority Date/Time Associated Diagnosis Comments PATHOLOGY TISSUE REQUEST Routine 04/15/2025 2:42 PM EDT Cyst (solitary) of breast, right MD EXC B9 LESION MRGN XCP SK TG T/A/L 2.1-3.0 CM 04/15/2025 2:31 PM EDT Cyst (solitary) of breast, right Special Needs Sk, LC 04/11 documented in this encounter Results * PATHOLOGY TISSUE REQUEST (04/15/2025 2:42 PM EDT) CASE REPORT Surgical Pathology Case: [id number] Authorizing Provider: Aguila Miranda MD Collected: 04/15/2025 1442 Ordering Location[facility] Received: 04/15/2025 1649 Pathologist: Tamica Hercules MD Specimen: Chest, Right, Right chest cysts 04/19/2025 8:43 AM EDT [facility] FINAL DIAGNOSIS Right chest cysts, excision: - Epidermal cysts. 04/19/2025 8:43 AM EDT [facility] at 0843 EDT GROSS DESCRIPTION A. [...] Garrett PA (ASCP) 04/19/2025 8:43 AM EDT [facility] MICROSCOPIC DESCRIPTION The microscopic examination may have been rendered in whole, or in part, by analyzing high-resolution digital images (whole slide images) on the [employer] Digital Pathology platform validated at [facility]. 04/19/2025 8:43 AM EDT [facility] EMBEDDED IMAGES 04/19/2025 8:43 AM EDT [facility] Tissue RIGHT THORAX STRUCTURE / Unknown 04/15/2025 2:42 PM EDT 04/15/2025 4:49 PM EDT us Aguila Miranda MD PATHOLOGY ORDERABLES Final Result [facility] [address] [place] [address] [phone] documented in this encounter Visit Diagnoses Diagnosis Cyst (solitary) of breast, right- Primary Cyst (solitary) of breast, right Cyst (solitary) of breast, right documented in this encounter Admitting Diagnoses Diagnosis Cyst (solitary) of breast, right documented in this encounter Administered Medications Inactive Administered Medications - up to 1 most recent administrations Medication Order MAR Action Action Date Dose Rate Site BUPivacaine-EPINEPHrine (MARCAINE/SENSORCAINE) 0.5 %-1:200,000 injection INTRAPROCEDURE, Starting on Fri04/15/25 at 1450, Until Fri04/15/25 at 1531, Intra-op Given 04/15/2025 2:50 PM EDT 13 mL Left Chest documented in this encounter Historical Medications * [...] Count Last Ordered Date First Ordered Date ciprofloxacin in 5 % dextros e (CIPRO) IVPB 400 mg 1 04/14/2025 Discharge Count Last Ordered Date First Orde red Date DISCHARGE PATIENT 1 04/15/2025 documented in this encounter Care Teams Stained Glass Joiner Relationship Specialty Start Date End Date Terrell Faust MD [address] [place] [phone] PCP - General Family Medicine 05/23/14 Adam Dolan MD [address] [place] [address] Physician Internal Medicine-Cardiovascular Disease 11/18/14 Jane Kelsey MSW Attache 06/03/24 documented as of this encounter
--- OUTSIDE RECORDS SUMMARY | 2025-04-25 09:27 | XMS_ITS | Encounter Summary ---
[place] [address] Care Team Providers Care Collections Technician Name Role Phone Christianne Bean MD, Terrell Primary Care Provider + Adam Dolan MD Unavailable [phone] Jane Kelsey Unavailable [phone] Reason for Referral * Mammography (Routine) - Pending Review Specialty Diagnoses / Procedures Referred By Sherine t Referred To Contact Radiology Diagnoses Invasive ductal carcinoma of breast, right (HCC) Other abnormal and inconclusive findings on diagnostic imaging of breast Procedures MM MAMMO DIGITAL ANDREW DIAGN BILAT Aguila Miranda MD [address] [place] [address] [address] [place] [address] Phone: tel: fax: Referral ID Status Reason Start Date Expiration Date V isits Requested Visits Authorized [id number] Pending Review 04/25/2025 04/25/2027 1 1 Reason for Visit * Reason Comments Post-Operative Exam Surgery 04/15/25 Encounter Details Date Type Department Care Team (Latest Contact Info) Description 04/25/2025 9:27 AM EDT - 04/25/2025 11:59 PM EDT Hospital Encounter [facility] [place] [address] Aguila Miranda MD [address] [place] [address] [place] [address] (work) Postop check (Primary Dx); Epidermal cyst; Invasive ductal carcinoma of breast, right (HCC); Tobacco use disorder; Other abnormal and inconclusive findings on diagnostic imaging of breast Discharge Disposition: Home or Self Care Social [...] Sign Reading Time Taken Comments Blood Pressure 139/86 04/25/2025 9:42 AM EDT Pulse 85 04/25/2025 9:42 AM EDT Temperature 36.4 C (97.5 F) 04/25/2025 9:42 AM EDT Respiratory Rate 16 04/25/2025 9:42 AM EDT Oxygen Saturation - - Inhaled Oxygen Concentration - - Weight 80.7 kg (177 lb 14.4 oz) 04/25/2025 9:42 AM EDT Height 170.2 cm (5' 7 ) 04/25/2025 9:42 AM EDT Body Mass Index 27.86 04/25/2025 9:42 AM EDT documented in this encounter Discharge Instructions * Attachments The following attachments cannot be sent through Care Everywhere. * Breast Surgery Exercises (Finnish) documented in this encounter Medications at Time [...] Progress Notes * Aguila Miranda MD - 04/25/2025 9:40 AM EDTAssociated Problem(s): Invasive ductal carcinoma of breast, right (HCC) * Aguila Miranda MD - 04/25/2025 9:40 AM EDTAssociated Problem(s): Tobacco use disorder * Aguila Miranda MD - 04/25/2025 9:40 AM EDT Subjective: Ms. Dougherty is here for a scheduled routine follow-up visit History of Present Illness The patient is a 64 y.o. female who presents with a complaint of surgical follow up S/p 04/15/25 Excison right breast cyst x2 I have confirmed and addended the HPI [...] 1:00 UIQ posterior with T3 placement BREAST BIOPSY Right 04/15/2025 Excison right breast cyst x2; Surgeon: Aguila Miranda MD; Location: [facility]; Service: General BREAST LUMPECTOMY Right 03/22/2025 Right breast mammogram guided segmentectomy, sentinel lymph node dissection; Surgeon: Aguila Miranda MD; Location: [facility]; Service: General FRACTURE SURGERY upper [...] packs/day: 1.00 Average packs/day: 1 pack/day for 55.6 years (55.6 ttl pk-yrs) Types: Cigarettes Start date: 1969 [...] by mouth. (Patient not taking: Reported on 04/25/2025) diazepam (VALIUM) 10 mg Oral Tablet Take 10 mg by mouth every 8 hours as needed. (Patient not taking: Reported on 04/25/2025) hydroCHLOROthiazide 25 mg Oral Tablet Take 25 mg by mouth daily. (Patient not taking: Reported on 04/25/2025) ibuprofen (ADVIL;MOTRIN) 100 mg Oral Tablet Take 100 mg by mouth every 6 hours as needed for Fever.(Patient not taking: Reported on 04/25/2025) lisinopriL (PRINIVIL;ZESTRIL) 40 mg Oral Tablet Take 40 mg by mouth daily. (Patient not taking: Reported on 04/25/2025) metoprolol succinate (TOPROL-XL) 25 mg Oral Tablet Sustained Release 24 hr Take by mouth once. (Patient not taking: Reported on 04/25/2025) oxyCODONE-acetaminophen (PERCOCET) 5-325 mg Oral Tablet Take 1-2 Tabs by mouth every 4 hours as needed for Pain. (Patient not taking: Reported on 04/25/2025) 40 Tab 0 No current facility-administered medications for this encounter. Allergies Allergen Reactions Codeine Rash Penicillins Rash Predicort-50 [Prednisolone Acetate] Rash Review of Systems Objective: Vitals: 04/25/25 0942 BP: 139/86 Pulse: 85 Resp: 16 Temp: 97.5 ??F (36.4 ??C) Weight: 177 lb 14.4 oz (80.7 kg) Height: 5' 7 (1.702 m) Body mass index is 27.86 kg/m??. Physical Exam Vitals and nursing note reviewed. Exam conducted with a intel analyst present. Constitutional: Appearance: Normal appearance. HENT: Head: Normocephalic and atraumatic. Cardiovascular: Rate and Rhythm: Normal rate. Pulmonary: Effort: Pulmonary effort is normal. Chest: Comments: S/p 04/15/25 Excison right breast cyst x2 - incision healing well Abdominal: General: Abdomen is flat. There is no distension. Palpations: Abdomen is soft. Tenderness: There is no abdominal tenderness. Neurological: Mental Status: She is alert. Psychiatric: Mood and Affect: Mood normal. Behavior: Behavior normal. Thought Content: Thought content normal. Judgment: Judgment normal. Surgical Pathology Case: [id number] Authorizing Provider: Aguila Miranda MD Collected: 04/15/2025 1449 [facility] Received: 04/15/2025 5446 Pathologist: Tamica Hercules MD Specimen: Chest, Right, Right chest cysts FINAL DIAGNOSIS Right chest cysts, excision: - Epidermal cysts. Surgical Follow Up Reviewed and discussed pathology two benign skin cyst She has an appt with radiation Return in 6 months Note written by SUNIL Echavarria, acting as scribe for Dani Miranda MD. Prior to Arrival Reviewed Pathology, Imaging, Medications and Surgical Note Assessment & Plan Postop check Epidermal cyst Invasive ductal carcinoma of breast, right (HCC) Tobacco use disorder ???I have reviewed this note and it accurately reflects my work and decisions made during this visit.?? Aguila Miranda MD * Yashira Perez RN - 04/25/2025 9:40 AM EDT Lindsey is seen in the breast clinic today for post surgical follow up of Breast Biopsy on 04/15/25. Surgical site incision sites dry and intact without signs of infection. Pathology results reviewed. Patient denies having pain. P: knowledge deficit r/t post surgical care and future treatment G: educate patient and I: Discussed future treatments; possible radiation vs chemotherapy and hormone therapy. Discussed sign and symptoms of infection of surgical site. Discussed pain instructed to stretch and move arm, wear a support bra. Emotional support provided. Pt met with Dr. Wallace regarding radiation - will start on Friday Discussed imaging with Samantha regarding getting pt back on schedule with imaging. She recommended Werner Dx M/g in 6months unless pt has any discomfort and feels she cannot tolerate. Then Mg can be adjusted. Next: SVS appt in 6 months along with imaging- will check my chart for date and time Will start radiation om Friday Offered handout on radiation - stated already had one AVS printed and reviewed - pt will review on mychart to determine next imaging needed documented in this encounter Miscellaneous Notes * Patient Instructions - Yashira Perez RN - 04/25/2025 9:40 AM EDT The breast center phone number is [phone] for the nurses or [phone] to make or cancel an appointment. Please do not call central scheduling to reschedule as they cannot see our schedule. Please remember the nurse checks voice mail messages throughout the day. However, if the Nurse taking care of the phone messages is with a patient, she may not be available to return your call until later in the day. If you need immediate assistance or there is any emergency, please call your Doctors number or go to the Emergency Room. If you need help with your MyChart, you can call our my chart support at [phone] for log in help or for other questions call [phone]. 6 month Follow Up/Survivorship with Bilateral M/g- please check your mychart for date and time. If you are having any discomfort from surgery or Radiation we can adjust the time frame for your Mammogram. Your next visit with your provider is a standard of care follow up/survivorship visit. During this visit, you will have a CBE (Clinical Breast Exam), discuss treatment effects (from surgery, radiation and/or chemotherapy, medication prescribed for your cancer treatment, etc.) and review your Treatment Summary Plan. This plan is a chronological account of your cancer journey including names of your doctors, type of cancer/stage, dates of surgery, additional treatments & cancer medication. Discussion will also include need/order for next mammogram, future health following breast cancer including the importance a balanced diet and exercise; signs to look for that may alert you to call for an appointment to be seen in clinic. This visit may take up to an hour. documented in this encounter Plan of Treatment Upcoming Encounters Date Type Department Care Team (Late st Contact Info) Description 05/16/2025 11:00 AM EDT Appointment [facility] [address] Michael Wallace MD [address] [place] [address] [facility] [place] [address] 10/27/2025 12:30 PM EST Appointment [facility] [place] [address] Aguila Miranda MD [address] [place] [address] [address] [place] [address] 10/27/2025 1:00 PM EST Appointment [facility] [address] [place] [address] Samantha Paredes PA-C [address] [place] [address] [address] [place] [address] Scheduled Orders Name Type Priority Associated Diagnoses Orde r Schedule MM MAMMO DIGITAL ANDREW DIAGN BILAT Imaging Routine Invasive ductal carcinoma of breast, right (HCC) Other abnormal and inconclusive findings on diagnostic imaging of breast 1 Occurrences starting 04/25/2025 until 04/25/2027 documented as of this encounter Goals Goal [...] as of this encounter Visit Diagnoses Diagnosis Postop check- Primary Follow-up examination, following unspecified surgery Epidermal cyst Sebaceous cyst Invasive ductal carcinoma of breast, right (HCC) Tobacco use disorder Other abnormal and inconclusive findings on diagnostic imaging of breast documented in this encounter Care Teams Collections Technician Relationship Specialty Start Date End Date Terrell Faust MD [address] [place] [id number] PCP - General Family Medicine 05/23/14 Adam Dolan MD [address] [place] [address] Physician Internal Medicine-Cardiovascular Disease 11/18/14 Jane Kelsey MSW Solutions Specialist 06/03/24 documented as of this encounter
--- OUTSIDE RECORDS SUMMARY | 2025-05-03 08:57 | XMS_ITS | Encounter Summary ---
Author Organization [place] [address] Care Team Providers Care Inspector Clip On Sunglasses Name Role Phone Christianne Bean MD, Terrell Primary Care Provider + Adam Dolan MD Unavailable [phone] Jane Kelsey Unavailable [phone] Encounter Details Date Type Department Care Team (Latest Contact Info) Description 05/03/2025 8:57 AM EDT - 05/03/2025 8:58 AM EDT Hospital Encounter [facility] [place] [address] Michael Wallace MD [address] [place] [address] [place] [address] Invasive ductal carcinoma of breast, right (HCC) [...] in this encounter Progress Notes * Michael Wallace MD - 05/03/2025 9:00 AM EDT RADIATION THERAPY SIMULATION NOTE Patient Name: Lindsey Dougherty : 1960 Date of Service: 05/03/2025 Diagnosis: Cancer Staging Right Breast Cancer As ordered, a simulation procedure was performed. Lindsey Dougherty was placed in the treatment position utilizing the necessary immobilization devices to ensure a reproducible treatment position. All set-up parameters for the treatment delivery are outlined below. Reference lyons were placed on the patient to assist with set-up. Immediately following simulation, local tanker truck driver films were obtained to define the region of interest and reviewed. A CT for dosimetry was then obtained. These images will be utilized for purposes of formal computerized treatment planning. Dose objectives and constraint orders will be submitted to dosimetry. The radiation therapist performing the simulation is documented. Area of Scan: Chest Patient Position: Supine Immobilization: Orfit Breastboard Markers/Wires: Breast/Scar Bladder: N/A Contrast: N/A CT Simulation Imaging: Free Breathing Imaging Fusion for Planning: NA Tx Plan: 3D Chemo: no Start Date: 05/16/2025 Location: [facility] I participated in the design and creation of the treatment devices and final approval of the simulation described above. * Michael Wallace MD - 05/03/2025 9:00 AM EDT Radiation Oncology Medical Necessity and Treatment Planning Note Patient Name: Lindsey Doguherty : 1960 ECOG PS: (0) Fully active, able to carry on all predisease performance without restriction Diagnosis: Cancer Staging Right Breast Cancer Medical Necessity and Planning Documentation 3D Plan and Treatment As per consult note, we plan to proceed with radiotherapy. Tests and supporting medical records were interpreted to assist in defining the tumor location and the extent of disease. No further imagingwill be necessary to contour and delineate the volume to which the radiation will be provided. Note all that apply to this patient's case: 3D Planning was recommended to allow for adequate dose homogeneity. The VOI is located such that its parameters are not assessed by simple 2D imaging techniques, requiring 3D data. Document specifics about this patient's case and special circumstances which increase complexity: N/A Special Treatment Procedure Documentation of Special Circumstances and/or Special Time required due to: N/A PHYSICIAN TREATMENT PLANNING Treatment Sites: Right Breast Intent of treatment: Curative Special tests reviewed: Mammography Interventions for RT: N/A Techniques/Ports: 3D Treatment Devices: Vac Loc, Field in Cesar, MLCs, Wingboard Planned Beam Energy: 6 MV, 10 MV, 15 MV and final selection depending on planning Dose per fraction: 2-5.2 Gy Total fractions: 5-10 Organs at Risk: Contralateral breast, lung, spinal cord, heart The final prescription reflecting the treatment parameters, i.e. fractionation, energy, beam arrangement and total dose will be provided on the electronic prescription within [facility] upon completion andmy evaluation of the requested dosimetry. Analysis of final plan will be provided once the dosimetry is completed. In order to accomplish this plan, I am ordering/prescribing the following services/procedures: Simulation(s) will be necessary to accomplish a reproducible treatment position, to determine optimal treatment portals/beam arrangements, to design beam modifying devices and to verify treatment portals o n patient prior to the commencement of XRT. , Devices; for immobilization and beam shaping., CT guidance for placement of XRT cesar. and Weekly physics checks. Imaging will be necessary during the course of therapy to monitor accuracy of treatments and patient set-up. For the proposed treatment plan, the following imaging is requested: daily port films and verification simulation Notes/Comments: (Special Considerations/Unusual Conditions/Precautions/Special Testing): N/A Michael Wallace MD documented in this encounter Plan of Treatment Upcoming Encounters Date Type Department Care Team (Late st Contact Info) Description 05/16/2025 11:00 AM EDT Appointment [facility] [place] [address] Michael Wallace MD [address] [place] [address] [place] [address] 10/27/2025 12:30 PM EST Appointment [facility] [address] [place] [address] Aguila Miranda MD [address] [place] [address] [address] [place] [address] 10/27/2025 1:00 PM EST Appointment [facility] [place] [address] Samantha Paredes PA-C [address] [place] [address] [address] [place] [address] documented as of this encounter Goals Goal [...] On track( 025 11:12 AM EDT) Dianna Mansfield, RN Note: Patient will be compliant with taking Aromatase Inhibitor daily and understands who to contact to discuss any side effects or complications. documented as of this encounter Visit Diagnoses Diagnosis Invasive ductal carcinoma of breast, right (HCC)- Primary documented in this encounter Care Teams Inspector Clip On Sunglasses Relationship Specialty Start Date End Date Terrell Faust MD [address] [place] [phone] PCP - General Family Medicine 05/23/14 Adam Dolan MD [address] [place] [address] Physician Internal Medicine-Cardiovascular Disease 11/18/14 Jane Kelsey MSW Newspaper Editor Managing 06/03/24 documented as of this encounter
--- OUTSIDE RECORDS SUMMARY | 2025-05-03 08:59 | XMS_ITS | Encounter Summary ---
Author Organization [place] [address] Care Team Providers Care Gunsmith Apprentice Name Role Phone Christianne Bean MD, Terrell Primary Care Provider + Adam Dolan MD Unavailable [phone] Jane Kelsey Unavailable [phone] Reason for Referral * MRI/CAT Scan (Routine) - Authorization Not Needed Specialty Diagnoses / Procedures Referred By Contac t Referred To Contact Radiology Diagnoses Invasive ductal carcinoma of breast, right (HCC) Procedures CT CHEST RADIATION THERAPY PLANNING WO CONTRAST Michael Wallace MD [address] [place] [address] Phone: tel: fax: [place] [address] Phone: tel: fax: Referral ID Status Reason Start Date Expiration Date Visits Requested Visits Authorized [id number] Authorization Not Needed 04/11/2025 04/11/2026 1 1 Reason for Visit * MRI/CAT Scan (Routine) - Authorization Not Needed Specialty Diagnoses / Procedures Referred By Contac t Referred To Contact Radiology Diagnoses Invasive ductal carcinoma of breast, right (HCC) Procedures CT CHEST RADIATION THERAPY PLANNING WO CONTRAST Michael Wallace MD [address] [place] [address] Phone: tel: fax: ED [facility] [place] [address] Phone: tel: fax: Referral ID Status Reason Start Date Expiration Date Visits Requested Visits Authorized [id number] Authorization Not Needed 04/11/2025 04/11/2026 1 1 Encounter Details Date Type Department Care Team (Latest Contact Info) Description 05/03/2025 8:59 AM EDT - 05/03/2025 11:59 PM EDT Hospital Encounter [facility] [place] [address] Michael Wallace MD [address] [place] [address] [facility] [place] [id number] Invasive ductal carcinoma of breast, right (HCC) [...] EDT Appointment [place] [address] Michael Wallace MD [address] [place] [address] [place] [address] 10/27/2025 12:30 PM EST Appointment [facility] [place] [address] Aguila Miranda MD [address] [place] [address] [address] [place] [address] 10/27/2025 1:00 PM EST Appointment [facility] [place] [address] Samantha Paredes PA-C [address] [place] [address] [address] [place] [address] documented as of this encounter Goals Goal Patient Goal Type Associated Problems Recent Progress Patient-Stated? Author Breast Health Breast Health On track( 025 12:16 PM EDT) Olivia Dugan, RN Note: Patient acknowledges understanding of new diagnosis, plan of care, available resources and how to contact Nurse Navigator with any future questions or concerns. Breast [facility] Breast Health On track( 025 11:12 AM EDT) No Dianna Issa, RN Note: Patient will be compliant with taking Aromatase Inhibitor daily and understands who to contact to discuss any side effects or complications. documented as of this encounter Procedures Procedure Name Priority Date/Time Associated Diagnosis Comments CT CHEST RADIATION THERAPY PLANNING WO CONTRAST Routine 05/03/2025 9:17 AM EDT Invasive ductal carcinoma of breast, right (HCC) documented in this encounter Results * CT CHEST RADIATION [...] No visualized bony metastatic process. Procedure Note Silverio Yaniv R, - 05/03/2025 CT CHEST FOR XRT PLANNING, [...] (HCC) documented in this encounter Care Teams Gunsmith Apprentice Relationship Specialty Start Date End Date Terrell Faust MD [address] [place] [phone] PCP - General Family Medicine 05/23/14 Adam Dolan MD [address] [place], [place] [id number] Physician Internal Medicine-Cardiovascular Disease 11/18/14 Jane Kelsey MSW Ux Architect 06/03/24 documented as of this encounter
--- OUTSIDE RECORDS SUMMARY | 2025-05-10 13:58 | XMS_ITS | Encounter Summary ---
Author Organization [place] [address] Care Team Providers Care Oil And Gas Lease Pumper Name Role Phone Christianne Bean MD, Terrell Primary Care Provider + Adam Dolan MD Unavailable [phone] Jane Kelsey Unavailable [phone] Encounter Details Date Type Department Care Team (Latest Contact Info) Description 05/10/2025 1:58 PM EDT - 05/10/2025 11:59 PM EDT Hospital Encounter [place] [address] Michael Wallace MD [address] [place] [address] [place] [address] Arrived Discharge Disposition: Home or Self Care Social [...] EDT Appointment [place] [address] Michael Wallace MD [address] [place] [address] [place] [address] 10/27/2025 12:30 PM EST Appointment [facility] [address] [place] [address] Aguila Miranda MD [address] [place] [address] [address] [place] [address] 10/27/2025 1:00 PM EST Appointment [facility] [place] [address] Samantha Paredes PA-C [address] [place] [address] [place] [address] documented as of this encounter Goals Goal [...] documented as of this encounter Visit Diagnoses Not on filedocumented in this encounter Care Teams Oil And Gas Lease Pumper Relationship Specialty Start Date End Date Terrell Faust MD [address] [place] [phone] PCP - General Family Medicine 05/23/14 Adam Dolan MD [address] [place] [address] Physician Internal Medicine-Cardiovascular Disease 11/18/14 Jane Kelsey MSW Health Center Assistant 06/03/24 documented as of this encounter
[2025-05-11 19:56] LABS: Albumin Level 4.6 g/dl (3.5-5.0); Chloride 99 mmol/L (98-107); Potassium 4.6 mmoL/L (3.5-5.1); Sodium 132 mmol/L (136-145)
[2025-05-11 19:58] LABS: Alanine Aminotransferase 12 U/L (12-78); Albumin/Globulin Ratio 1.5 (1.1-1.8); Alkaline Phosphatase 90 U/L (38-126); Anion Gap 10.6 mEq/L (5-15); Aspartate Amino Transferase 18 U/L (14-36); Bilirubin,Total 0.4 mg/dl (0.2-1.3); Blood Urea Nitrogen 13 mg/dl (7-17); Carbon Dioxide 27 mmol/L (22.0-30.0); Creatinine,Serum 0.70 mg/dl (0.52-1.04); Estimated Glomerular Filt Rate 84 ml/min (>60); GFR (African American) 102 ML/MIN (>60); Globulin 3.1 g/dL (1.3-3.2); Total Protein,Serum 7.7 g/dl (6.3-8.2)
[2025-05-11 19:59] LABS: Calcium 9.5 mg/dl (8.4-10.2); Cholesterol 138 mg/dl (140-200); Glucose 98 mg/dl (74-100); HDL Cholesterol 44 mg/dl (40-60); Triglycerides 158 mg/dl (30-150)
--- OUTSIDE RECORDS SUMMARY | 2025-05-12 12:09 | XMS_ITS | Encounter Summary ---
Author Organization [place] [address] Care Team Providers Care Human Service Coordinator Name Role Phone Christianne Bean MD, Terrell Primary Care Provider + Adam Dolan MD Unavailable [phone] Jane Kelsey Unavailable [phone] Encounter Details Date Type Department Care Team (Late st Contact Info) Description 04/05/2025 Orders Only SEP Gen Surg Edg 254 [address] [facility] [address] [place] [address] Kathy Mcconnell RMA Cyst (solitary) of breast, right (Primary Dx) Social History Tobacco Use Types Packs/Day Years [...] on file documented as of this encounter Plan of Treatment Upcoming Encounters Date Type Department Care Team (Late st Contact Info) Description 05/16/2025 11:00 AM EDT Appointment [facility] [address] Michael Wallace MD [address] [place] [address] [place] [address] 10/27/2025 12:30 PM EST Appointment [facility] [address] Aguila Miranda MD [address] [place] [address] [address] [place] [address] 10/27/2025 1:00 PM EST Appointment [facility] Women's Wellness [facility] [place] [address] Samantha Paredes PA-C [address] [place] [address] [address] [place] [address] documented as of this encounter Goals Goal Patient Goal Type Associated Problems Recent Progress Patient-Stated? Author Breast [facility] Breast Health On track( 025 12:16 PM [...] as of this encounter Visit Diagnoses Diagnosis Cyst (solitary) of breast, right- Primary documented in this encounter Care Teams Human Service Coordinator Relationship Specialty Start Date End Date Terrell Faust MD [address] [place] [phone] PCP - General Family Medicine 05/23/14 Adam Dolan MD [address] [place] [address] Physician Internal Medicine-Cardiovascular Disease 11/18/14 Jane Kelsey MSW Family Resource Management Specialist 06/03/24 documented as of this encounter
--- OUTSIDE RECORDS SUMMARY | 2025-05-12 12:09 | XMS_ITS | Encounter Summary ---
Author Organization [facility] [place] [address] Care Team Providers Care Digital Production Operator Name Role Phone Christianne Bean MD, Terrell Primary Care Provider + Adam Dolan MD Unavailable [phone] Jane Kelsey REPAIRER [employer]OCKS Unavailable [phone] Encounter Details Date Type Department Care Team (Latest Contact Info) Description 04/15/2025 Travel Social History Tobacco Use Types Packs/Day Years [...] EDT Appointment [place] [address] Michael Wallace MD [address] [place] [address] [place] [address] 10/27/2025 12:30 PM EST Appointment [facility] [place] [address] Aguila Miranda MD [address] [place] [address] [address] [place] [address] 10/27/2025 1:00 PM EST Appointment [facility] Women's Wellness [place] [facility] [place] [address] Samantha Paredes PA-C [address] [place] [address] [address] [place] [address] documented as of this encounter Goals Goal [...] on filedocumented in this encounter Care Teams Digital Production Operator Relationship Specialty Start Date End Date Terrell Faust MD [address] [place] [phone] PCP - General Family Medicine 05/23/14 Adam Dolan MD [address] [place] [address] Physician Internal Medicine-Cardiovascular Disease 11/18/14 Jane Kelsey MSW Education Program Manager 06/03/24 documented as of this encounter
--- OUTSIDE RECORDS SUMMARY | 2025-05-12 12:09 | XMS_ITS | Encounter Summary ---
Author Organization [facility] [place] [address] Care Team Providers Care Planetarium Technician Name Role Phone Christianne Bean MD, Terrell Primary Care Provider + Adam Dolan MD Unavailable [phone] Jane Kelsey COMMERCIAL OCEAN CLAMMER Unavailable [phone] Encounter Details Date Type Department Care Team (Latest Contact Info) Description 04/05/2025 Travel Social History Tobacco Use Types Packs/Day [...] EDT Appointment [facility] [place] [address] Michael Wallace MD [address] [place] [address] [place] [address] 10/27/2025 12:30 PM EST Appointment [place] [address] Aguila Miranda MD [address] [place] [address] [address] [place] [address] 10/27/2025 1:00 PM EST Appointment [facility] Women's Wellness [facility] [place] [address] Samantha Paredes PA-C [address] [place] [address] [place] [address] documented as of this encounter Goals Goal [...] on filedocumented in this encounter Care Teams Planetarium Technician Relationship Specialty Start Date End Date Terrell Faust MD [address] [place] [phone] PCP - General Family Medicine 05/23/14 Adam Dolan MD [address] [place], [place] [address] Physician Internal Medicine-Cardiovascular Disease 11/18/14 Jane Kelsey MSW Real Estate Sales Manager 06/03/24 documented as of this encounter
--- OUTSIDE RECORDS SUMMARY | 2025-05-12 12:09 | XMS_ITS | Encounter Summary ---
Author Organization [place] [address] Care Team Providers Care De Icer Kit Assembler Name Role Phone Christianne Bean MD, Terrell Primary Care Provider + Adam Dolan MD Unavailable [phone] Jane Kelsey Unavailable [phone] Encounter Details Date Type Department Care Team (Late st Contact Info) Description 04/05/2025 Orders Only SEP Gen Surg Edg 254 20 [facility] [address] [place] [address] Kathy Mcconnell RMA Cyst (solitary) [...] EDT Appointment [place] [address] Michael Wallace MD [address] [place] [address] [facility] [address] 10/27/2025 12:30 PM EST Appointment [facility] [place] [address] Aguila Miranda MD [address] [place] [address] [address] [place] [address] 10/27/2025 1:[address] [facility] Women's Wellness [facility] [place] [address] Samantha Paredes PA-C [address] [place] [address] [address] [place] [address] Scheduled Orders Name Type Priority Associated Diagnoses Orde r Schedule SURGICAL/PROCEDURE CASE REQUEST Procedures Routine Cyst (solitary) of breast, right Ordered: 04/05/2025 documented as of this encounter Goals Goal Patient Goal Type Associated Problems Recent Progress Patient-Stated? Author [facility] On track( 025 12:16 PM EDT) No Olivia Moya, RN Note: Patient acknowledges understanding of new diagnosis, plan of care, available resources and how to contact Nurse Navigator with any future questions or concerns. Breast [facility] Breast Health On track( 025 11:12 AM EDT) No Dianna Issa, RN Note: Patient will be compliant with taking Aromatase Inhibitor daily and understands who to contact to discuss any side effects or complications. documented as of this encounter Visit Diagnoses Diagnosis Cyst (solitary) of breast, right- Primary documented in this encounter Care Teams De Icer Kit Assembler Relationship Specialty Start Date End Date Terrell Faust MD [address] [place] [phone] PCP - General Family Medicine 05/23/14 Adam Dolan MD [address] [place], [place] [id number] Physician Internal Medicine-Cardiovascular Disease 11/18/14 Jane Kelsey MSW Executive Director Of Nursing 06/03/24 documented as of this encounter
--- OUTSIDE RECORDS SUMMARY | 2025-05-12 12:09 | XMS_ITS | Clinical Summary ---
Author Organization [facility] Address [facility] [place] [address] Care Team Providers Care Intermediate School Teacher Name Role Phone Terrell Faust MD Primary Care Provider [phone] Allergies Active Allergy Reactions Criticality Noted Date Comments Codeine Other (See Comments) 02/14/2015 Penicillins Unknown 02/14/2015 Prednisone Unknown 02/14/2015 Medications metoprolol succinate (TOPROL-XL) 25 MG TB24 Take 25 mg by mouth daily. Active amlodipine (NORVASC) 2.5 MG TABS Take 2.5 mg by mouth daily. Active diazepam (VALIUM) 10 MG TABS Take 10 mg by mouth every 6 (six) hours as needed. Active Active Problems Problem Noted Date Diagnosed Date Left lower quadrant abdominal mass 02/14/2015 Abdominal pain, left lower quadrant 02/14/2015 Family History Medical History Relation Name Comments COPD Father Diabetes Father Hypertension Father Diabetes Mother Hypertension Mother Thyroid Disease Mother Relation Name Status Comments Father Mother Social History Tobacco Use Types Packs/Day Years Used Date Smoking Tobacco: Every Day Smokeless Tobacco: Never Alcohol Use Standard Drinks/Week Comments Yes 0 (1 standard drink = 0.6 oz pur e alcohol) Comments Unknown Sex and Gender Information Value Date Recorded Sex Assigned at Not on file Legal Sex Female 9:10 AM EDT Gender Identity Not on file Sexual Orientation Not on file Last Filed Vital Signs Vital Sign Reading Time Taken Comments Blood Pressure 173/111 02/28/2015 1:55 PM EDT Pulse 78 02/28/2015 1:55 PM EDT Temperature - - Respiratory Rate - - Oxygen Saturation - - Inhaled Oxygen Concentration - - Weight 97 kg (213 lb 13.5 oz) 02/28/2015 1:55 PM EDT Height 170 cm (5' 6.93 ) 02/28/2015 1:55 PM EDT Body Mass Index 33.56 02/28/2015 1:55 PM EDT Plan of Treatment Health Maintenance Due Date Last Done Comments Hepatitis C Screening 1959 DTap,Tdap,and Td (1 - Tdap) 1970 Pap Screening 1980 Mammogram Screening 1999 Colonoscopy 2004 Pneumococcal 50+ (1 of 1 - PCV) 2009 Shingrix (#1) 2009 DEXA Scan 2024 Influenza Vaccine (#1) 2025 RSV Vaccine (60+ or ) (1 - 1-dose 75+ series) 2034 HPV Aged Out No longer eligi ble based on patient's age to complete this topic Meningococcal conjugate charmaine nt 4 (MCV4) Aged Out No longer eligible b ased on patient's age to complete this topic RSV Immunization (<20 months) Aged Out No longer eligible based on patient's age to complete this topic Care Teams Intermediate School Teacher Relationship Specialty Start Date End Date Terrell Faust MD [address] [place] [address] PCP - General 02/03/15
--- OUTSIDE RECORDS SUMMARY | 2025-05-12 12:09 | XMS_ITS | Referral Summary ---
Author Organization [facility] Address [address] [place] [address] Care Team Providers Care Architectural Practice Manager Name Role Phone Terrell Faust MD Primary Care Provider [phone] Allergies Active Allergy Reactions Criticality Noted Date [...] 02/14/2015 Abdominal pain, left lower quadrant 02/14/2015 Social History Tobacco Use Types Packs/Day Years [...] 02/28/2015 1:55 PM EDT Plan of Treatment Not on file Care Teams Architectural Practice Manager Relationship Specialty Start Date End Date Terrell Faust MD [address] [place] [address] PCP - General 02/03/15
--- OUTSIDE RECORDS SUMMARY | 2025-05-12 12:09 | XMS_ITS | Encounter Summary ---
Author Organization [place] [address] Care Team Providers Care Company Laborer Name Role Phone Christianne Bean MD, Terrell Primary Care Provider + Adam Dolan MD Unavailable [phone] Poornima Jernigan RN Unavailable [phone] Jane Kelsey ADMINISTRATIVE SUPPORT ASSISTANT Unavailable [phone] Encounter Details Date Type Department Care Team (Late st Contact Info) Description 05/17/2024 Orders Only [facility] [place] [phone] Poornima Hernandez MD [address] [place] [phone] Social History Tobacco Use Types Packs/Day Years [...] Encounters Date Type Department Care Team (Late Contact Info) Description 05/16/2025 11:00 AM EDT Appointment [place] [address] Michael Wallace MD [address] [place] [address] [place] [address] 10/27/2025 12:30 PM EST Appointment [facility] [place] [address] Aguila Miranda MD [address] [place] [address] [address] [place] [address] 10/27/2025 1:00 PM EST Appointment [facility] Women's Well[facility] [place] [address] Samantha Paredes PA-C [address] [place] [address] [address] [place] [address] documented as of this encounter Procedures Procedure Name Priority Date/Time Associated Diagnosis Comments NEOGENOMICS BREAST PANEL (3 STAIN) Routine 05/17/2024 11:16 AM EDT documented in this encounter Results * NEOGENOMICS BREAST PANEL (3 STAIN) (05/17/2024 11:16 AM EDT) 05/17/2024 11:1 6 AM EDT Narrative [facility] - 05/26/2024 10:42 PM EDT Requesting Provider: ROSHNI Kelly Specimen = [id number] us Poornima Hernandez MD PATHOLOGY ORDERABLES Final R esult [facility] [address] [place] [id number] documented in this encounter Visit Diagnoses Not on filedocumented in this encounter Care Teams Company Laborer Relationship Specialty Start Date End Date Terrell Faust MD [address] [place] [phone] PCP - General Family Medicine 05/23/14 Adam Dolan MD [address] [place] [phone] Physician Internal Medicine-Cardiovascul ar Disease 11/18/14 Poornima Jernigan, RN Oncology Nurse Navigator 05/19/24 Jane Kelsey MSW Filter Operator 06/03/24 documented as of this encounter
--- OUTSIDE RECORDS SUMMARY | 2025-05-12 12:10 | XMS_ITS | Encounter Summary ---
Author Organization [facility] [place] [address] Care Team Providers Care Clothes Designer Name Role Phone Christianne Bean MD, Terrell Primary Care Provider + Adam Dolan MD Unavailable [phone] Jane Kelsey Unavailable [phone] Reason for Visit * Reason Onset Date Comments Appointment Needed 04/26/2025 Encounter Details Date Type Department Care Team (Late st Contact Info) Description 04/26/[address] [facility] Women's Wellness [facility] [place] [phone] Olivia Verdugo, Clerical Staff Appointment Needed Social History Tobacco Use Types Packs/Day Years [...] on file documented as of this encounter Miscellaneous Notes * Telephone Encounter - Olivia Verdugo, Clerical Staff - 04/26/2025 8:45 AM EDT Appointment scheduled - patient will check myChart * Telephone Encounter - Olivia Verdugo, Miguelrical Staff - 04/26/2025 8:45 AM EDT ----- Message from Nurse Ac sent at 04/25/2025 4:40 PM EDT ----- Provider: Dr. Miranda or [facility]-- Follow up: 6 months SVS-- Reason/Hx: R IDC-- Imaging: Bilateral Dx Mg to get back on track with imaging-- DEXA needed na-- Ordered yes for m/g-- Additional needs na-- Fall risk na-- Preferred time: na -- Will check My chart: yes -- documented in this encounter Plan of Treatment Upcoming Encounters Date Type Department Care Team (Late st Contact Info) Description 05/16/2025 11:00 AM EDT Appointment [facility] [place] [address] Michael Wallace MD [address] [place] [address] [place] [address] 10/27/2025 12:30 PM EST Appointment [facility] [place] [address] Aguila Miranda MD [address] [place] [address] [place] [address] 10/27/2025 1:00 PM EST Appointment [facility] Women's Well[facility] [address] [place] [address] Samantha Paredes PA-C [address] [place] [address] DR SWIFT [address] [place] [address] documented as of this encounter Goals Goal [...] on filedocumented in this encounter Care Teams Clothes Designer Relationship Specialty Start Date End Date Terrell Faust MD [address] [place] [phone] PCP - General Family Medicine 05/23/14 Adam Dolan MD [address] [place] [address] Physician Internal Medicine-Cardiovascular Disease 11/18/14 Jane Kelsey MSW Wellness Ambassador 06/03/24 documented as of this encounter
--- OUTSIDE RECORDS SUMMARY | 2025-05-12 12:10 | XMS_ITS | Encounter Summary ---
Author Organization [facility] [place] [place] [address] Care Team Providers Care Fish Seiner Name Role Phone Christianne Bean MD, Terrell Primary Care Provider + Adam Dolan MD Unavailable [phone] Jane Kelsey PEARL DIVER Unavailable [phone] Encounter Details Date Type Department Care Team (Latest Contact Info) Description 04/04/2025 Travel Social History Tobacco Use Types Packs/Day [...] EDT Appointment [facility] [place] [address] Michael Wallace MD [address] [place] [address] [place] [address] 10/27/2025 12:30 PM EST Appointment [facility] [place] [address] Aguila Miranda MD [address] [place] [address] [address] [place] [address] 10/27/2025 1:00 PM EST Appointment [facility] Women's Wellness [facility] [place] [address] Samantha Paredes PA-C [address] [place] [address] [place] [address] documented as of this encounter Goals Goal [...] on filedocumented in this encounter Care Teams Fish Seiner Relationship Specialty Start Date End Date Terrell Faust MD [address] [place] [phone] PCP - General Family Medicine 05/23/14 Adam Dolan MD [address] [place], [place] [address] Physician Internal Medicine-Cardiovascular Disease 11/18/14 Jane Kelsey MSW Electric Trucker 06/03/24 documented as of this encounter
--- OUTSIDE RECORDS SUMMARY | 2025-05-12 12:10 | XMS_ITS | Encounter Summary ---
Author Organization [facility] [address] Care Team Providers Care Trench Digging Machine Operator Name Role Phone Christianne Bean MD, Terrell Primary Care Provider + Adam Dolan MD Unavailable [phone] Jane Kelsey Unavailable [phone] Reason for Visit * Reason Onset Date Comments Appointment Needed 03/07/2025 Surgery Sched uling Encounter Details Date Type Department Care Team (Late st Contact Info) Description 03/07/2025 Telephone [facility] Women's Wellness [facility] [place] [address] Jessica Huitron, RN Appointment Needed (Surgery Scheduling) Social History Tobacco Use Types Packs/Day Years [...] encounter Miscellaneous Notes * Telephone Encounter - Jessica Huitron RN - 03/07/2025 10:09 AM EDT Office visit note received from Dr Longo stating the pt is wanting to reschedule ehr Lumpectomy procedure with Dr Miranda, Information given to Kathy Mcconnell MA to call and reschedule pt procedure. documented in this encounter Plan of Treatment Upcoming Encounters Date Type Department Care Team (Late st Contact Info) Description 05/16/2025 11:00 AM EDT Appointment [facility] [place] [phone] Michael Wallace MD [address] [place] [address] [place] [address] 10/27/2025 12:30 PM EST Appointment [facility] [place] [address] Aguila Miranda MD [address] [place] [address] [address] [place] [address] 10/27/2025 1:00 PM EST Appointment [facility] Women's Wellness [facility] [address] Samantha Paredes PA-C [address] [place] [address] [address] [place] [address] documented as of this encounter Goals Goal [...] on filedocumented in this encounter Care Teams Trench Digging Machine Operator Relationship Specialty Start Date End Date Terrell Faust MD [address] [place] [phone] PCP - General Family Medicine 05/23/14 Adam Dolan MD [address] [place] [address] Physician Internal Medicine-Cardiovascular Disease 11/18/14 Jane Kelsey MSW Jr. Systems Administrator 06/03/24 documented as of this encounter
--- OUTSIDE RECORDS SUMMARY | 2025-05-12 12:10 | XMS_ITS | Encounter Summary ---
Author Organization [facility] [place] [address] Care Team Providers Care Decator Operator Name Role Phone Christianne Bean MD, Terrell Primary Care Provider + Adam Dolan MD Unavailable [phone] Jane Kelsey RN NEW GRADUATE Unavailable [phone] Encounter Details Date Type Department Care Team (Latest Contact Info) Description 03/22/2025 Travel Social History Tobacco Use Types Packs/Day [...] EDT Appointment [place] [address] Michael Wallace MD [address] [place] [address] [place] [address] 10/27/2025 12:30 PM EST Appointment [facility] [place] [address] Aguila Miranda MD [address] [place] [address] [address] [place] [address] 10/27/2025 1:00 PM EST Appointment [facility] Women's Wellness [facility] [place] [address] Samantha Paredes PA-C [address] [place] [address] [place] [address] documented as of this encounter Goals Goal [...] on filedocumented in this encounter Care Teams Decator Operator Relationship Specialty Start Date End Date Terrell Faust MD [address] [place] [phone] PCP - General Family Medicine 05/23/14 Adam Dolan MD [address] [place], [place] [phone] Physician Internal Medicine-Cardiovascular Disease 11/18/14 Jane Kelsey MSW Paper Reclaiming Machine Operator 06/03/24 documented as of this encounter
--- OUTSIDE RECORDS SUMMARY | 2025-05-12 12:10 | XMS_ITS | Clinical Summary ---
Author Organization [facility] General Surgery [facility] [address] [place] [address] Phone Care Team Providers Care Customer Servicer Name Role Phone Christianne Bean MD, Harold Primary Care Provider + Adam Dolan MD Unavailable [phone] Jane Kelsey Unavailable [phone] Allergies Active Allergy Reactions Criticality Noted Date Comments Codeine Rash 05/23/2014 Penicillins Rash 05/23/2014 Prednisolone Acetate Rash 05/23/2014 Medications amLODIPine (NORVASC) 2.5 mg Oral Tablet Take 10 mg by mouth. Active metoprolol succinate (TOPROL-XL) 25 mg Oral Tablet Sustained Release 24 hr Take by mouth once. Active diazepam (VALIUM) 10 mg Oral Tablet Take 10 mg by mouth every 8 hours as needed. Active ibuprofen (ADVIL;MOTRIN) 100 mg Oral Tablet Take 100 mg by mouth every 6 hours as needed for Fever. Active oxyCODONE-aceta minophen (PERCOCET) 5-325 mg Oral Tablet Take 1-2 Tabs by mouth every 4 hours as needed for Pain. 40 Tab 0 5 Active Additional Information Patient not taking.Reason: Therapy Completed, Reported on 04/25/2025 FLUoxetine (PROZAC) 20 mg Oral Capsule Take 20 mg by mouth daily. Active lisinopriL (PRINIVIL;ZESTR IL) 40 mg Oral Tablet Take 40 mg by mouth daily. Active aspirin 81 mg Oral Tablet, Chewable Take 81 mg by mouth daily. Active atorvastatin (LIPITOR) 40 mg Oral Tablet Take 40 mg by mouth daily. Active anastrozole (ARIMIDEX) 1 mg Oral TabletIndicatio ns:Invasive ductal carcinoma of breast, right (HCC) TAKE ONE (1) TABLET BY MOUTH DAILY. 90 Tablet 3 Active HUMULIN 70/30 U-100 KWIKPEN 100 unit/mL (70-30) SubQ Insulin Pen Inject 10 Units under the skin 2 times daily (with meals). Active hydroCHLOROthia zide 25 mg Oral Tablet Take 25 mg by mouth daily. Active metFORMIN (GLUCOPHAGE) 500 mg Oral Tablet Take 500 mg by mouth 2 times daily. Active acetaminophen (TYLENOL) 500 mg Oral Tablet Take by mouth every 4 hours as needed for Pain. Active Active Problems Problem Noted Date Diagnosed Date Cyst (solitary) of breast, right 04/05/2025 Invasive ductal carcinoma of breast, right 05/19 Assessment & Plan (05/03/2025 12:20 PM EDT): Assessment & Plan (04/10/2025 7:29 AM EDT): Orders: AMB REFERRAL TO RADIATION ONCOLOGY Seroma, postoperative 12/13/2014 Umbilical hernia 11/23/2014 Umbilical hernia 11/23/2014 Murmur, diastolic 11/10/2014 Incarcerated ventral hernia 05/23/2014 Unspecified essential hypertension 05/23/2014 Tobacco use disorder 05/23/2014 Assessment & Plan (05/03/2025 12:20 PM EDT): Assessment & Plan (12/12/2024 8:59 AM EDT): Assessment & Plan (12/06/2024 10:45 AM EST): Assessment & Plan (09/23/2024 8:03 PM EST): Assessment & Plan (09/22/2024 10:29 AM EST): Encounters Date Type Department Care Team Description 05/10/2025 1:58 PM EDT - 05/10/2025 11:59 PM EDT Hospital Encounter [place] [address] Michael Wallace MD Arrived Discharge Disposition: Home or Self Care 05/03/2025 8:59 AM EDT - 05/03/2025 11:59 PM EDT Hospital Encounter [facility] [place] [address] Michael Wallace MD Invasive ductal carcinoma of breast, right (HCC) Discharge Disposition: Home or Self Care 05/03/2025 8:57 AM EDT - 05/03/2025 8:58 AM EDT Hospital Encounter [place] [address] Michael Wallace MD Invasive ductal carcinoma of breast, right (HCC) (Primary Dx) Discharge Disposition: Home or Self Care 04/26/2025 Telephone [facility] [place] [address] Olivia Verdugo, Clerical Staff Appointment Needed 04/25/2025 9:27 AM EDT - 04/25/2025 11:59 PM EDT Hospital Encounter [facility] [place] [place] [address] Aguila Miranda MD Postop check (Primary Dx); Epidermal cyst; Invasive ductal carcinoma of breast, right (HCC); Tobacco use disorder; Other abnormal and inconclusive findings on diagnostic imaging of breast Discharge Disposition: Home or Self Care 04/15/2025 2:25 PM EDT - 04/15/2025 3:15 PM EDT Surgery [facility] [place] [address] Aguila Miranda MD BREAST BIOPSY 04/15/2025 1:22 PM EDT - 04/15/2025 3:31 PM EDT Hospital Encounter [facility] [place] [address] Aguila Miranda MD Cyst (solitary) of breast, right Discharge Disposition: Home or Self Care 04/15/2025 Travel 04/11/2025 9:03 AM EDT - 04/11/2025 11:59 PM EDT Hospital Encounter [facility] [place] [id number] Michael Wallace MD Invasive ductal carcinoma of breast, right (HCC) (Primary Dx) Discharge Disposition: Home or Self Care 04/05/2025 Travel 04/05/2025 Orders Only SEP Gen Surg [facility] [address] [facility] [address] [address] [place] [address] Kathy Mcconnell RMA Cyst (solitary) of breast, right (Primary Dx) 04/05/2025 Orders Only SEP [facility] S[facility] [address] [place] [address] [address] [place] [address] Kathy Mcconnell, RMA Cyst (solitary) of breast, right (Primary Dx) 04/04/2025 10:20 AM EDT - 04/04/2025 11:59 PM EDT Hospital Encounter [facility] [place] [address] [place] [facility] Aguila Miranda MD Invasive ductal carcinoma of breast, right (HCC) (Primary Dx); Postop check Discharge Disposition: Home or Self Care 04/04/2025 Travel 04/04/2025 Telephone [facility] [place] [place] [address] Bernadine Brian RN Appointment Needed 03/22/2025 12:13 PM EDT Anesthesia Event [facility] [place] [address] Varsha Cortez MD Collins, Angela, APRN 03/22/2025 12:00 PM EDT - 03/22/2025 1:35 PM EDT Surgery [facility] [place] [address] Aguila Miranda MD BREAST LUMPECTOMY/ SEGMENTECTOMY/ AXILLARY SENTINEL NODE BIOPSY (COVERS MAMMOGRAM GUIDED/NEEDLE PLACEMENT OR MIRNA LINE INSTALLER) 03/22/2025 11:33 AM EDT - 03/22/2025 4:25 PM EDT Hospital Encounter [facility] SAME DAY SURGERY [facility] [place] [address] Aguila Miranda MD Invasive ductal carcinoma of breast, right (HCC) Discharge Disposition: Home or Self Care 03/22/2025 10:15 AM EDT - 03/22/2025 11:32 AM EDT Hospital Encounter [facility] [place] [address] Aguila Miranda MD Malignant neoplasm of right breast in female, estrogen receptor positive, unspecified site of breast (HCC) Discharge Disposition: Home or Self Care 03/22/2025 9:59 AM EDT - 03/22/2025 10:14 AM EDT Hospital Encounter [facility] [place] [address] Aguila Miranda MD Malignant neoplasm of right breast in female, estrogen receptor positive, unspecified site of breast (HCC) Discharge Disposition: Home or Self Care 03/22/2025 Travel 03/09/2025 Travel 03/08/2025 Orders Only SEP Gen Surg [facility] [address] [place] [address] Kathy Mcconnell RMA Invasive ductal carcinoma of breast, right (HCC) (Primary Dx) 03/07/2025 Telephone [facility] [place] [place] [address] Jessica Huitron RN Appointment Needed (Surgery Scheduling) 02/21/2025 Refill [facility] [place] [place] [address] Aguila Miranda MD Medication Refill from Last 3 Months Surgical History Surgery Date Site/Laterality Comments HYSTERECTOMY partial HAND SURGERY FRACTURE SURGERY upper left arm HERNIA REPAIR 11/23/2014 Abdomen/N/A LAPAROSCOPIC ASSISTED UMBILICAL HERNIA REPAIR WITH MESH.; Surgeon: Vinicius Read MD; Location: [facility]; Service: General Medical devices from this surgery are in the Medical Devices section. BREAST BIOPSY 05/17/2024 Right 1:00 UIQ posterior with T3 placement MM US BREAST BIOPSY RIGHT 05/17/2024 Right MM US BREAST BIOPSY RIGHT 05/17/2024 Mary Jo Busby MD [facility] US GUIDED NEEDLE PLACEMENT 03/22/2025 Right 12:00-1:00 o'clock BREAST LUMPECTOMY 03/22/2025 Breast/Right Right breast mammogram guided segmentectomy, sentinel lymph node dissection; Surgeon: Aguila Miranda MD; Location: [facility]; Service: General BREAST BIOPSY 04/15/2025 Right Excison right breast cyst x2; Surgeon: Aguila Miranda MD; Location: [facility]; Service: General Medical History Medical History Date Comments Hypertension Postoperative nausea and vomiting Hyperlipidemia Depression Heart murmur Stroke (HCC) 2018 Anemia Cancer (HCC) breast rt Family History Medical History Relation Name Comments Cancer Father Heart Disease Maternal Grandmother Stroke Maternal Uncle Diabetes Mother Kidney Disease Mother Breast Cancer Paternal Aunt Anesth Problems Neg Hx Relation Name Status Comments Father Alive Maternal Grandmother Maternal Uncle Mother Alive Paternal Aunt Paternal Grandmother Social History Tobacco Use Types Packs/Day Years Used Date Smoking Tobacco: Every Day Cigarettes 1 55.6 Started: 1969 Smokeless Tobacco: Never Tobacco Cessation:Ready to Q uit: Not Asked; Counseling Given: Not Answered Alcohol Use Standard Drinks/Week Comments No 0 (1 standard drink = 0.6 oz pur e alcohol) Comments No Sex and Gender Information Value Date Recorded Sex Assigned at Not on file Legal Sex Female 4:40 AM EDT Gender Identity Not on file Sexual Orientation Not on file Obstetrics History Para Term AB IAB SAB Ectopic Multiple Livin g Live Births 4 Last Filed Vital Signs Vital Sign [place] Time Taken Comments Blood Pressure 139/86 04/25/2025 9:42 AM EDT Pulse 85 04/25/2025 9:42 AM EDT Temperature 36.4 C (97.5 F) 04/25/2025 9:42 AM EDT Respiratory Rate 16 04/25/2025 9:42 AM EDT Oxygen Saturation 96% 04/15/2025 3:06 PM EDT Inhaled Oxygen Concentration - - Weight 80.7 kg (177 lb 14.4 oz) 04/25/2025 9:42 AM EDT Height 170.2 cm (5' 7 ) 04/25/2025 9:42 AM EDT Body Mass Index 27.86 04/25/2025 9:42 AM EDT Plan of Treatment Upcoming Encounters Date Type Department Care Team (Late st Contact Info) Description 05/16/2025 11:00 AM EDT Appointment [facility] [place] [place] [address] Michael Wallace MD [address] [place] [address] 10/27/2025 12:30 PM EST Appointment [facility] [address] [place] [address] Aguila Miranda MD [address] [place] [address] 10/27/2025 1:00 PM EST Appointment [facility]'s [facility] [address] [place] [facility] Samantha Paredes PA-C [address] [place] [address] [address] [place] [address] Health Maintenance Due Date Last Done Comments Wellness Exam Medicare 1962 Lipids 1969 Diabetic Eye Exam 1977 Hepatitis C Screening 1977 Kidney Health: uACR 1977 Pneumococcal Vaccine 50+ (1 of 2 - PCV) 1978 Cervical Cancer Screening 1980 Pap Smear 1980 HPV/Pap Cotest 1989 Cologuard 2004 Colon Cancer Screening 2004 Colonoscopy 2004 FIT 2004 Sigmoidoscopy 2004 Virtual Colonography 2004 DTaP/TDaP/Td (1 - Tdap) 03/09/2009 03/08/2009 Low Dose Lung Cancer Screening 2009 Zoster (1 of 2) 2009 COVID-19 Vaccine ( - 2023-2 5 season) 2024 Influenza Vaccine (#1) 2025 Hemoglobin A1c 06/24/2025 12/22/2024, 03/03/2018 Kidney Health: eGFR 12/22/2025 12/22/2024, 06/21/2014 Breast Cancer Screening 05/07/2026 05/07/2024 Bone Density Screening Completed 10/28/2024 Hepatitis B Vaccine Aged Out No longe r eligible based on patient's age to complete this topic Meningococcal B Vaccine Aged Out No l onger eligible based on patient's age to complete this topic Goals Goal Patient Goal Type Associated Problems Recent Progress Patient-Stated? Author [facility] Breast Health On track( 025 12:16 PM EDT) No Olivia Moya RN Note: Patient acknowledges understanding of new diagnosis, plan of care, available resources and how to contact Nurse Navigator with any future questions or concerns. Breast [facility] Breast [facility] On track( 025 11:12 AM EDT) No Dianna Issa, NAM Note: Patient will be compliant with taking Aromatase Inhibitor daily and understands who to contact to discuss any side effects or complications. Medical Devices Implanted Type Area Folder Tier Device Identifier Shelf Expiration Date Model / Serial / Lot Patch Hernia St Ventralex Medium [place] With Strap 3.2 - [id number] Implanted:Qty: 1 on 11/23/2014 by Vinicius Read MD at [facility] N/A: Abdomen CR BARD:DAVOL 07/23/2016 [id number] / / [id number] Device Fixation Strap Absorbable 25 Straps Secure Strap 5mm - [id number] Implanted:Qty: 1 on 11/23/2014 by Vinicius Read MD at [facility] N/A: Abdomen J&J:ETHICON:ENDO -SURGERY 04/22/2016 [id number] / / [id number] Procedures Procedure Name Priority Date/Time Associated Diagnosis Comments CT CHEST RADIATION THERAPY PLANNING WO CONTRAST Routine 05/03/2025 9:17 AM EDT Invasive ductal carcinoma of breast, right (HCC) PATHOLOGY TISSUE REQUEST Routine 04/15/2025 2:42 PM EDT Cyst (solitary) of breast, right RI EXC B9 LESION MRGN XCP SK TG T/A/L 2.1-3.0 CM 04/15/2025 2:31 PM EDT Cyst (solitary) of breast, right Special Needs Sk, LC 04/11 SCANNED RHYTHM STRIPS 03/23/2025 2:28 PM EDT MM [facility] TRIDENT SPECIMEN IMAGING Routine 03/22/2025 2:02 PM EDT PATHOLOGY TISSUE REQUEST Routine 03/22/2025 12:35 PM EDT Invasive ductal carcinoma of breast, right (HCC) INTRAOP AIRWAY PLACEMENT Routine 03/22/2025 12:22 PM EDT RI BX/EXC LYMPH NODE OPEN DEEP AXILLARY NODE 03/22/2025 12:13 PM EDT Invasive ductal carcinoma of breast, right (HCC) Special Needs needle loc 03/22/25 @ 10:30am edg bcsk RI MASTECTOMY PARTIAL 03/22/2025 12:13 PM EDT Invasive ductal carcinoma of breast, right (HCC) Special Needs needle loc 03/22/25 @ 10:30am edg bcsk GLUCOSE METER POC Routine 03/22/2025 11: 40 AM EDT MM US BREAST NEEDLE LOCALIZATION RIGHT Routine 03/22/2025 11:34 AM EDT Malignant neoplasm of right breast in female, estrogen receptor positive, unspecified site of breast (HCC) MM POST PROCEDURE FILM DIGITAL RIGHT Routine 03/22/2025 11:34 AM EDT Malignant neoplasm of right breast in female, estrogen receptor positive, unspecified site of breast (HCC) BASIC METABOLIC PANEL Routine 12/22/2024 10:34 AM EDT Preop testing Unspecified essential hypertension HEMOGLOBIN A1C Add-On 12/22/2024 10:34 AM EDT Preop testing Invasive ductal carcinoma of breast, right (HCC) Elevated glucose DX BONE DENSITY AXIAL SKELETON Routine 10/28/2024 11:25 AM EST Malignant neoplasm of right breast in female, estrogen receptor positive, unspecified site of breast (HCC) intermission coordinator (current) use of aromatase inhibitors Post-menopausal MM MAMMO DIGITAL ANDREW DIAGN RIGHT Routine 05/07/2024 10:34 AM EDT Breast mass in female Abnormal finding on mammography from Last 3 Months or Most Recently Relevant to Health Maintenance Results * CT CHEST RADIATION THERAPY PLANNING [...] please contactthe office of the ordering clinician. us Michael Wallace MD IMG CT ORDERABLES Final Result * PATHOLOGY TISSUE REQUEST (04/15/2025 2:42 PM EDT) Only the most recent of2 resultswithin the time period is included. CASE REPORT Surgical Pathology Case: [id number] Authorizing Provider: Aguila Miranda MD Collected: 04/15/2025 1442 Ordering Location: [facility] Received: 04/15/2025 1649 Pathologist: Tamica Hercules MD Specimen: Chest, Right, Right chest cysts 04/19/2025 8:43 AM EDT [facility] FINAL DIAGNOSIS Right chest cysts, excision: - Epidermal cysts. 04/19/2025 8:43 AM EDT [facility] at 0843 EDT GROSS DESCRIPTION A. [...] Garrett PA (ASCP) 04/19/2025 8:43 AM EDT [facility] MICROSCOPIC DESCRIPTION The microscopic examination may have been rendered in whole, or in part, by analyzing high-resolution digital images (whole slide images) on the [employer] Digital Pathology platform validated at [facility]. 04/19/2025 8:43 AM EDT [facility] EMBEDDED IMAGES 04/19/2025 8:43 AM EDT [facility] Tissue RIGHT THORAX STRUCTURE / Unknown 04/15/2025 2:42 PM EDT 04/15/2025 4:49 PM EDT us Aguila Miranda MD PATHOLOGY ORDERABLES Final Result [facility] [address] [place] [address] [address] * SCANNED RHYTHM STRIPS (03/23/2025 2:28 PM [...] next breast imaging, in accordance with the [employer] and the Society of [...] next breast imaging, in accordance with the [employer] and the Society of Breast Imaging recommendations. *Breast Imaging has a false negative rate of 15%. *Any patient with a palpable abnormality, unexplained by breast imaging,should be managed on a clinical basis by the attending physician. Aguila Miranda MD IMG MAMMOGRAPHY ORDERABLES Final Result * INTRAOP AIRWAY PLACEMENT (03/22/2025 12:22 PM EDT) Narrative [facility] - 03/22/2025 12:22 PM EDT Sangita Rogel CRNA 03/22/2025 12:28 PM Intraop Airway Placement: Date/Time: 03/22/2025 12:22 PM Induction type: IV Mask size: Standard adult Pre-Oxygenation: Standard Mask ventilation: Easy mask ventilation Airway type: LMA Airway location: Oral Device size: 4 Secured by: Tape Placement verified: Auscultation, End tidal CO2 and Symmetric chest wall motion Condition: Unchanged and Atraumatic Insertion attempts: 1 Varsha Cortez MD RI ANESTHESIA Final Result Performing Organization Address City/[facility]/ZIP Co de Phone Number [facility] [address] [place] [address] * (ABNORMAL) GLUCOSE METER POC (03/22/2025 11:40 AM EDT) [facility] Glucose Meter POC 139(H) 70 - 100 mg/dL 03/22/2025 11:42 AM EDT [facility] Sample Type Capillary 03/22/2025 11:42 AM EDT [facility] Patient Status Non-Critical Patient 03/22/2025 11:42 AM EDT [facility] Blood BLOOD SPECIMEN / Unknown 03/22/2025 11:40 AM EDT 03/22/2025 11:42 AM EDT us Aguila Miranda MD POINT OF CARE TEST ORDERABL ES Final Result Performing Organization Address [facility] Co de Phone Number [facility] [address] [place] [address] * MM US BREAST NEEDLE LOCALIZATION RIGHT [...] next breast imaging, in accordance with the [employer] and the Society of [...] . DISCLAIMER *The patient was notified by PingSomehart or mail of the results for this examination. *The patient's information was entered into a reminder system with atarget due date for the next breast imaging, in accordance with the [employer] and the Society of Breast Imaging recommendations. *Breast Imaging has a false negative rate of 15%. *Any patient with a palpable abnormality, unexplained by breast imaging,should be managed on a clinical basis by the attending physician. us Aguila Miranda MD IMG MAMMOGRAPHY ORDERABLES Final Result * MM POST PROCEDURE FILM DIGITAL RIGHT [...] next breast imaging, in accordance with the [employer] and the Society of [...] next breast imaging, in accordance with the [employer] and the Society of Breast Imaging recommendations. *Breast Imaging has a false negative rate of 15%. *Any patient with a palpable abnormality, unexplained by breast imaging,should be managed on a clinical basis by the attending physician. Aguila Miranda MD IMG MAMMOGRAPHY ORDERABLES Final Result * (ABNORMAL) HEMOGLOBIN A1C (12/22/2024 10:34 AM EDT) Hgb A1C 14.5(H) 4.2 - 5.6 % 12/23/2024 4:12 PM EDT [facility] Est. Avg Glucose 369 mg/dL 12/23/2024 4:12 PM EDT [facility] Blood VENOUS BLOOD / Unknown Venipuncture / Unknown 12/22/2024 10:34 AM EDT 12/22/2024 10:34 AM EDT Narrative [facility] - 12/23/2024 4:12 PM EDT REFERENCE RANGE: Normal: 4.0-5.6% Pre-diabetes: 5.7-6.4% Provisional diagnosis of diabetes: >6.4% Hgb F>10% and anything which shortens red cell survival, such as hemolytic anemia, or unstable hemoglobin variants such as HbSS, HbSC, or HbCC, will lower the HbA1c value associated with a given level of glycemic control. Joaquina Kee APRN CHEMISTRY ORDERABLES Final Res ult [facility] [address] [place] [address] * (ABNORMAL) BASIC METABOLIC PANEL (12/22/2024 10:34 AM EDT) Sodium 132(L) 136 - 145 mmol/L 12/22/2024 11:32 AM EDT [facility] Potassium 4.5 3.5 - 5.0 mmol/L 12/22/2024 11:32 AM EDT [facility] Chloride 94(L) 98 - 107 mmol/L 12/22/2024 11:32 AM EDT [facility] Total CO2 26 22 - 29 mmol/L 12/22/2024 11:32 AM EDT [facility] Anion Gap 12 7 - 16 mmol/L 12/22/2024 11:32 AM EDT [facility] Calcium 9.6 8.8 - 10.4 mg/dL 12/22/2024 11:32 AM EDT [facility] Glucose Lvl 379(H) 70 - 99 mg/dL 12/22/2024 11:32 AM EDT [facility] BUN 19 8 - 23 mg/dL 12/22/2024 11:32 AM EDT [facility] Creatinine 0.85 0.51 - 1.30 mg/dL 12/22/2024 11:32 AM EDT [facility] eGFR (CKD-EPIcr 2020) 76 >=60 mL/min/1.7 3 m2 12/22/2024 11:32 AM EDT [facility] Comment:Estimated GFR was ca lculated using the CKD-EPIcr (2020) equation refit without race. The equation is recommended by the National Kidney Foundation - [employer] Neph[employer] Task Force. Blood VENOUS BLOOD / Unknown Venipuncture / Unknown 12/22/2024 10:34 AM EDT 12/22/2024 10:34 AM EDT Veronika Stringer EDUCATIONAL COORDINATOR CHEMISTRY ORDERABLES Final Re sult [facility] [address] [place] [id number] * DX BONE DENSITY AXIAL SKELETON (10/28/2024 11:25 AM EST) Anatomical Region Laterality Modality Dexa Scan 10/28/2024 Impressions 10/29/2024 9:19 AM EST Indication: The patient is a female age 65 or older who requires a bone density assessment. Study was performed on [employer]PE[employer] 5. Bone Density: Region BMD T-score Z-score AP Spine (L1-L4) 0.904 -1.3 0.5 Femoral Neck (Left) 0.614 -2.1 -0.6 Total Hip (Left) 0.725 -1.8 -0.5 Femoral Neck (Right) 0.601 -2.2 -0.7 Total Hip (Right) 0.800 -1.2 0.1 1/3 Radius (Right) 0.648 -0.8 0.9 World Health Organization criteria for BMD interpretation classify patients as: Normal (T-score at or above -1.0), Low Bone Density (T-score between -1.0 and -2.5), or Osteoporotic (T-score at or below -2.5). T Scores are reported in Postmenopausal women and in men age 50 and older. Z-scores are reported in females prior to menopause and in males younger than age 50. 10-year Fracture Risk(1): Major Osteoporotic Fracture 32% Hip Fracture 5.4% Reported Risk Factors: [place] (), Neck BMD=0.601, BMI=29.8, previous fracture, parental fracture, smoking (1) FRAX(R) Version 3.08. Fracture probability calculated for an untreated patient. Fracture probability may be lower if the patient has received treatment. Clinical Information Provided by Patient: Has had a low trauma fracture Parent has had a hip fracture Smokes Has used or is currently using the following medications: Calcium, Aromatase Inhibitors, Vitamin D Has had or currently has the following medical conditions: Breast Cancer, Back pain, Hip pain Patient maximum height was 67.5 Menopause Age: 49 Patient is Post menopausal woman Interpretation: Bone mineral density is in the low bone density range. Medical evaluation for secondary causes of low bone mineral density may be appropriate. A minimum of two years may be required between bone density studies due to inherent testing precision limitations. Intervals between BMD testing should be determined according to each patient's clinical status: typically one year after initiation or change in therapy is appropriate, with longer intervals once therapeutic effect is established. The [employer] recommends treatment consideration in patients with FRAX scores of greater than or equal to 3% for hip fracture or 20% for major osteoporotic fracture. The patient's FRAX score does meet that treatment threshold. Reported by: NIKITA Pizarro PA-C on 10/28/2024 2:15:00 PM. us Aguila Miranda MD IMG DEXA ORDERABLES Final R esult * MM MAMMO DIGITAL ANDREW DIAGN RIGHT (05/07/2024 10:34 AM EDT) Anatomical Region Laterality Modality Breast Right Mammography 05/07/2024 12:2 1 PM EDT Impressions 05/07/2024 12:21 PM EDT Incomplete-need additional imaging evaluation ([id number]-[id number]) ~ RECOMMENDATION: Ultrasound of the right breast. ~ DISCLAIMER * Any patient with a palpable abnormality, unexplained by breast imaging, should be managed on clinical basis by the attending physician. * Breast imaging has a false negative rate of 15%. * The patient was notified by mail of the results of this examination. *The patient's information was entered into a reminder system with a target due date for the next mammogram, in accordance with the [employer] and the Society of Breast Imaging recommendations. Narrative 05/07/2024 12:21 PM EDT Procedure:MM MAMMO DIGITAL ANDREW DIAGN RIGHT ~ Reason for exam: addl evaluation requested from abnormal screening. N63.0-Unspecified lump in unspecified jfybpa-SIE-49-CM R92.8-Other abnormal and inconclusive findings on diagnostic imaging of skvhgw-RMA-40-CM N63.0-Unspecified lump in unspecified eiuhyo-ONU-70-CM R92.8-Other abnormal and inconclusive findings on diagnostic imaging of jhycbh-PEQ-92-CM ~ MM MAMMO DIGITAL ANDREW DIAGN RIGHT CC and MLO view(s) were taken of the right breast. Technologist: Mary Jo Roberts, RT There are scattered fibroglandular densities. Prior study comparison: Compared with prior studies, the most recent being 04/23/24, 09/12/21. Screening recall from an outside facility for right breast findings. In the posterior upper inner quadrant of the right breast, there are heterogeneous segmental calcifications which span up to 4 cm. There are subtle areas of associated distortion. Posterior to this is an oval mass representing a sebaceous cyst. Ultrasound will be performed and reported separately. ~ Procedure Note Mary Jo Busby MD - 05/07/2024 Procedure:MM MAMMO DIGITAL ANDREW DIAGN RIGHT ~ Reason for exam: addl evaluation requested from abnormal screening. N63.0-Unspecified lump in unspecified bvugoy-KWS-60-CM R92.8-Other abnormal and inconclusive findings on diagnostic imaging of alzeyz-KGO-00-CM N63.0-Unspecified lump in unspecified pjgyqp-FWJ-63-CM R92.8-Other abnormal and inconclusive findings on diagnostic imaging of imhjcm-FSH-54-CM ~ MM MAMMO DIGITAL ANDREW DIAGN RIGHT CC and MLO view(s) were taken of the right breast. Technologist: Mary Jo Roberts, RT There are scattered fibroglandular densities. Prior study comparison: Compared with prior studies, the most recentbeing 04/23/24, 09/12/21. Screening recall from an outside facility for right breast findings. Inthe posterior upper inner quadrant of the right breast, there are heterogeneous segmental calcifications which span up to 4 cm. There are subtle areas of associated distortion. Posterior to this is an oval mass representing a sebaceous cyst. Ultrasound will be performed and reported separately. ~ IMPRESSION: Incomplete-need additional imaging evaluation (GDV-Vkhspmtf-3) ~ RECOMMENDATION: Ultrasound of the right breast. ~ DISCLAIMER * Any patient with a palpable abnormality, unexplained by breast imaging, should be managed on clinical basis by the attending physician. * Breast imaging has a false negative rate of 15%. * The patient was notified by mail of the results of this examination. *The patient's information was entered into a reminder system with atarget due date for the next mammogram, in accordance with the [employer] and the Society of Breast Imaging recommendations. Devendra Longo MD [facility] MAMMOGRAPHY ORDERABLES Final Result from Last 3 Months or Most Recently Relevant to Health Maintenance Insurance [place]ARE [place]ARED SERVICES [place] Care Teams Customer Servicer Relationship Specialty Start Date End Date Terrell Faust MD [address] [place] [address] PCP - General Family Medicine 05/23/14 Adam Dolan MD [address] [place], [place] [id number] Physician Internal Medicine-Cardiovascular Disease 11/18/14 Jane Kelsey, [employer] Counter Representative 06/03/24
--- OUTSIDE RECORDS SUMMARY | 2025-05-12 12:10 | XMS_ITS | Encounter Summary ---
Author Organization [place] [address] Care Team Providers Care Observation Assistant Name Role Phone Christianne Bean MD, Terrell Primary Care Provider + Adam Dolan MD Unavailable [phone] Jane Kelsey Unavailable [phone] Reason for Visit * Reason Onset Date Comments Appointment Needed 04/04/2025 Encounter Details Date Type Department Care Team (Late st Contact Info) Description 04/04/2025 Telephone [facility] Women's Wellness [facility] [place] [phone] Bernadine Brian RN Appointment Needed Social History Tobacco Use Types [...] encounter Miscellaneous Notes * Telephone Encounter - Chelsy Schuler RN - 04/26/2025 11:00 AM EDT Scheduled 10/27 for SVS. * Telephone Encounter - Dianna Issa RN - 04/25/2025 4:02 PM EDT Pt was here for appt 04/[address] Miranda - done TE when SVS scheduled * Telephone Encounter - Chelsy Schuler RN - 04/19/2025 11:11 AM EDT Pt is scheduled to see maurizio 04/25, if she ends up not needing appt or showing up, call patein toscheduled 6 mos SVS. * Telephone Encounter - Bernadine Brian RN - 04/04/2025 11:07 AM EDT Patient here for her lumpectomy [facility] post op visit. 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 Patient to return for a post op visit. If Dr. Miranda tells her she does not need to come in for a post op visit from the cyst removal, she will need her 6 month survivorship visit scheduled. Patient isaware of this and is supposed to call us. N please watch to make sure she gets scheduled. documented in this encounter Plan of Treatment Upcoming Encounters Date Type Department Care Team (Late st Contact Info) Description 05/16/2025 11:00 AM EDT Appointment [facility] [place] [address] Michael Wallace MD [address] [place] [address] [place] [address] 10/27/2025 12:30 PM EST Appointment [facility] [address] Aguila Miranda MD [address] [place] [address] [address] [place] [address] 10/27/2025 1:00 PM EST Appointment [facility] Women's Wellness [facility] [place] [address] Samantha Paredes PA-C [address] [place] [address] [place] [address] documented as of this encounter Goals Goal [...] on filedocumented in this encounter Care Teams Observation Assistant Relationship Specialty Start Date End Date Terrell Faust MD [address] [place] [id number] PCP - General Family Medicine 05/23/14 Adam Dolan MD [address] [place] [address] Physician Internal Medicine-Cardiovascular Disease 11/18/14 Jane Kelsey MSW [employer] 06/03/24 documented as of this encounter
--- OUTSIDE RECORDS SUMMARY | 2025-05-12 12:10 | XMS_ITS | Clinical Summary ---
Author Organization [facility] Address [address] [place] [address] Care Team Providers Care Multicultural Services Librarian Name Role Phone Unavailable Primary Care Provider Unavailabl e Social History Tobacco Use Types Packs/Day Years Used Date Smoking Tobacco: Never Assessed Comments Unknown Sex and Gender Information Value Date Recorded Sex Assigned at Not on file Legal Sex Female 6:54 PM EDT Gender Identity Not on file Sexual Orientation Not on file Plan of Treatment Not on file
== END 2025-05-11 23:59 | disposition home or self-care (01) ==
LOC: LAB.DROPOF 05-12 12:07
PROVIDERS: PCP Family Medicine; Visit Provider Family Medicine
DX: E11.9 Type 2 diabetes mellitus without complications (principal); I10 Essential (primary) hypertension
CPT/HCPCS: 80053; 80061; 82043; 82570